=== PATIENT | female | born 1935 | race African-American/Black ===

== ENCOUNTER 2018-12-15 16:18 | Emergency (ER) | payer MEDICARE, MEDICAID ==
[2018-12-15] MEDS ORDERED: Acetaminophen 500 MG TAB ONE (16:56)
--- NOTE | 2018-12-15 16:58 | RAD ---
Exam: XR Knee Rt 4 View STANDARD HISTORY: Right knee pain COMPARISON: None FINDINGS: There is tricompartment osteophytosis. There is narrowing of the medial joint compartment with mild s ubchondral sclerosis present. No acute fracture, dislocation, or other acute osseous abnormality is identified. Vascular calcifications are seen in the region of the tibial peroneal vessels. IMPRESSION: Osteoarthritis right knee greatest involving the medial joint compartment.
[2018-12-15 17:15] LABS: #Basophils 0.1 thou/uL (0.0-0.2); #Eosinphils 1.2 thou/uL (0.0-0.7); #Lymphocytes 1.6 thou/uL (1.20-3.40); #Monocytes 0.5 thou/uL (0.11-0.59); #Neutrophils 4.2 thou/uL (1.40-6.50); %Basophils 1.2 % (0.0-1.0); %Eosinophils 15.6 % (0.0-10.0); %Lymphocytes 21.6 % (21.0-51.0); %Monocytes 6.5 % (0.0-10.0); %Neutrophils 55.1 % (42.0-75.0); Hemoglobin 11.6 g/dL (12.0-16.0); Mean Corpuscular HGB CONC 32.2 g/dL (32.0-36.0); Mean Corpuscular Hemoglobin 29.7 pg (27.0-31.0); Mean Corpuscular Volume 92.3 fL (78.0-98.0); Mean Platelet Volume 8.4 fL (7.4-10.4); Platelet Count 211 thou/uL (130-400); RBC Distribution Width 13.3 % (11.5-14.5); White Blood Cell (WBC) Count 7.6 thou/uL (4.8-10.8)
[2018-12-15 17:32] LABS: Anion Gap 10 mmol/L (10-20); BUN (Urea Nitrogen) 26 mg/dL (9.8-20.1); CRP (Inflammatory) Less than 0.50 mg/dL (= or < 0.5); Calc. Creatinine Clearance 0 mL/min (70-130); Calcium 9.5 mg/dL (7.8-10.44); Carbon Dioxide 29 mmol/L (23-31); Chloride 103 mmol/L (98-107); Estimated GFR-MDRD 31; Glucose 113 mg/dL (83-110); Potassium 4.2 mmol/L (3.5-5.1); Sodium 138 mmol/L (136-145); Uric Acid 9.8 mg/dL (2.6-6.0)
== END 2018-12-15 18:05 ==
LOC: ERS 16:18
DX: M17.11 Unilateral primary osteoarthritis, right knee (principal); Z86.711 Personal history of pulmonary embolism; I25.10 Atherosclerotic heart disease of native coronary artery without angina pectoris; E78.5 Hyperlipidemia, unspecified; I48.91 Unspecified atrial fibrillation; I50.9 Heart failure, unspecified; F03.90 Unspecified dementia, unspecified severity, without behavioral disturbance, psychotic disturbance, mood disturbance, and anxiety; Z79.899 Other long term (current) drug therapy; Z79.01 Long term (current) use of anticoagulants
CPT/HCPCS: 36415; 80048; 84550; 85025; 85652; 86140

== ENCOUNTER 2020-01-14 12:19 | Emergency (ER) | payer MEDICARE, MEDICAID ==
[2020-01-14 13:13] LABS: #Basophils 0.1 thou/uL (0.0-0.2); #Eosinphils 0.5 thou/uL (0.0-0.7); #Lymphocytes 1.7 thou/uL (1.20-3.40); #Monocytes 0.4 thou/uL (0.11-0.59); %Basophils 1.4 % (0.0-1.0); %Eosinophils 9.2 % (0.0-10.0); %Lymphocytes 29.5 % (21.0-51.0); %Monocytes 7.1 % (0.0-10.0); %Neutrophils 52.7 % (42.0-75.0); Hemoglobin 15.3 g/dL (12.0-16.0); Mean Corpuscular HGB CONC 31.9 g/dL (32.0-36.0); Mean Corpuscular Hemoglobin 29.8 pg (27.0-31.0); Mean Corpuscular Volume 93.2 fL (78.0-98.0); Mean Platelet Volume 8.6 fL (7.4-10.4); Platelet Count 209 thou/uL (130-400); RBC Distribution Width 15.5 % (11.5-14.5); Red Blood Cell (RBC) Count 5.13 mill/uL (4.20-5.40); White Blood Cell (WBC) Count 5.6 thou/uL (4.8-10.8)
[2020-01-14 13:15] LABS: ALT (SGPT) 10 U/L (8-55); AST (SGOT) 24 U/L (5-34); Alkaline Phosphatase 68 U/L (40-110); Anion Gap 14 mmol/L (10-20); BUN (Urea Nitrogen) 16 mg/dL (9.8-20.1); Bilirubin, Total 1.2 mg/dL (0.2-1.2); Calc. Creatinine Clearance 0 mL/min (70-130); Calcium 9.1 mg/dL (7.8-10.44); Carbon Dioxide 31 mmol/L (23-31); Chloride 95 mmol/L (98-107); Estimated GFR-MDRD 44; Globulin 3.3 g/dL (2.4-3.5); Glucose 112 mg/dL (83-110); Potassium 3.8 mmol/L (3.5-5.1); Protein, Total 6.3 g/dL (6.0-8.3); Sodium 136 mmol/L (136-145)
[2020-01-14 14:01] LABS: Bilirubin Negative (Negative); Blood, Urine Negative (Negative); Clarity Clear (Clear); Glucose, Urine (Dipstick) Normal (Negative); Ketone, Urine Negative (Negative); Leukocyte Negative Leu/uL (Negative); Nitrite Negative (Negative); Protein, Urine (Dipstick) Negative (Neg-Trace); Specific Gravity, Urine 1.009 (1.002-1.036); Urobilinogen Normal mg/dL (Less than 2)
--- NOTE | 2020-01-14 15:40 | CT ---
CT BRAIN WITHOUT CONTRAST: HISTORY:Altered mental status COMPARISON:None FINDINGS: There are foci of decreased attenuation in the periventricular white matter, consistent with chronic small vessel ischemic disease. There are old infarctions in the left and right parietal lobes, left larger than right. Cortical atrophy is present. No evidence of acute infarct, hemorrhage, midline shift or abnormal extra-axial fluid collections is seen. The ventricular size is appropriate and the basilar cisterns are patent. The bony calvarium is intact. The visualized paranasal sinuses and mastoid air cells are well aerated. IMPRESSION: No CT evidence of acute intracranial process.
[2020-01-14 15:53] LABS: CKMB 1.2 ng/mL (0-6.6)
[2020-01-14 20:26] LABS: CKMB 1.1 ng/mL (0-6.6)
--- NOTE | 2020-01-15 14:35 | EKG ---
Test Reason : Blood Pressure : / mmHG Vent. Rate : 072 BPM Atrial Rate : 066 BPM P-R Int : 000 ms QRS Dur : 118 ms QT Int : 482 ms P-R-T Axes : 000 -61 129 degrees QTc Int : 527 ms Atrial fibrillation with premature ventricular or aberrantly conducted complexes Left axis deviation Inferior infarct , age undetermined Anteroseptal infarct , age undetermined Prolonged QT Abnormal ECG Confirmed by SILVA VELAZQUEZ DO ([id number]), managing editor JASON MATA ([id number] on 01/15/2020 2:34:29 PM Referred By: Confirmed By:SILVA VELAZQUEZ DO
== END 2020-01-14 21:38 | disposition home or self-care (01) ==
LOC: EDBD 12:19 → ERS 12:19
DX: R53.1 Weakness (principal); R74.8 Abnormal levels of other serum enzymes; M19.90 Unspecified osteoarthritis, unspecified site; I25.10 Atherosclerotic heart disease of native coronary artery without angina pectoris; E78.5 Hyperlipidemia, unspecified; I73.9 Peripheral vascular disease, unspecified; I48.91 Unspecified atrial fibrillation; F03.90 Unspecified dementia, unspecified severity, without behavioral disturbance, psychotic disturbance, mood disturbance, and anxiety; I50.9 Heart failure, unspecified; Z79.01 Long term (current) use of anticoagulants; Z79.899 Other long term (current) drug therapy; Z86.718 Personal history of other venous thrombosis and embolism; Z79.82 Long term (current) use of aspirin
CPT/HCPCS: 36415; 51701; 70450; 80053; 81003; 82553; 84484; 85025; 93005

== ENCOUNTER 2020-04-10 16:05 | Emergency (ER) | payer MEDICARE, MEDICAID ==
--- NOTE | 2020-04-10 17:03 | RAD ---
RADIOGRAPH CHEST 1 VIEW: DATE: 04/10/2020 HISTORY: 84-year-old female with altered mental status. Concern for aspiration. FINDINGS: There is no airspace density, pulmonary edema, or pneumothorax. The lateral costophrenic angles are n ot effaced. IMPRESSION: 1) No acute pulmonary findings. 2) left atrial appendage closure device. 3) previous open-heart surgery.
[2020-04-10 17:51] LABS: #Lymphocytes 2.3 thou/uL (1.20-3.40); #Monocytes 0.9 thou/uL (0.11-0.59); #Neutrophils 4.2 thou/uL (1.40-6.50); %Eosinophils 11.4 % (0.0-10.0); %Lymphocytes 27.4 % (21.0-51.0); %Monocytes 10.7 % (0.0-10.0); %Neutrophils 50.5 % (42.0-75.0); Hemoglobin 14.2 g/dL (12.0-16.0); Mean Corpuscular HGB CONC 31.1 g/dL (32.0-36.0); Mean Corpuscular Hemoglobin 28.3 pg (27.0-31.0); Mean Corpuscular Volume 90.9 fL (78.0-98.0); Mean Platelet Volume 8.5 fL (7.4-10.4); Platelet Count 311 thou/uL (130-400); RBC Distribution Width 13.9 % (11.5-14.5); Red Blood Cell (RBC) Count 5.02 mill/uL (4.20-5.40); White Blood Cell (WBC) Count 8.4 thou/uL (4.8-10.8)
[2020-04-10 17:57] LABS: Bilirubin Negative (Negative); Blood, Urine Negative (Negative); Clarity Clear (Clear); Glucose, Urine (Dipstick) Normal (Negative); Ketone, Urine Negative (Negative); Leukocyte Negative Leu/uL (Negative); Nitrite Negative (Negative); Protein, Urine (Dipstick) Negative (Neg-Trace); Specific Gravity, Urine 1.013 (1.002-1.036); Urobilinogen Normal mg/dL (Less than 2); pH, Urine 5.5 (5.0-9.0)
[2020-04-10 17:57] LABS: ALT (SGPT) 15 U/L (8-55); AST (SGOT) 22 U/L (5-34); Albumin 3.1 g/dL (3.4-4.8); Alkaline Phosphatase 142 U/L (40-110); Anion Gap 15 mmol/L (10-20); BUN (Urea Nitrogen) 36 mg/dL (9.8-20.1); Bilirubin, Total 0.5 mg/dL (0.2-1.2); Calc. Creatinine Clearance 0 mL/min (70-130); Calcium 11.6 mg/dL (7.8-10.44); Carbon Dioxide 34 mmol/L (23-31); Chloride 96 mmol/L (98-107); Globulin 4.7 g/dL (2.4-3.5); Glucose 98 mg/dL (83-110); Potassium 4.2 mmol/L (3.5-5.1); Protein, Total 7.8 g/dL (6.0-8.3); Sodium 141 mmol/L (136-145)
[2020-04-10 18:19] LABS: CKMB 1.5 ng/mL (0-6.6)
--- NOTE | 2020-04-10 19:34 | CT ---
NONCONTRAST CT HEAD: 04/10/20 HISTORY: Altered mental status. History of epilepsy and prior CVA. COMPARISON: 01/18/20. FINDINGS: Prominent low attenuation area in the left parieto-occipital region is again seen likely related to r emote area of infarction. Minimal low attenuation area seen in the right parietal lobe also suggestiv e of remote ischemic change. There is no evidence of an acute cortical infarction, hemorrhage, mass e ffect, or midline shift. Mild cerebral volume loss is present. The ventricular system is normal in si ze, shape and position. The visualized paranasal sinuses and mastoid air cells are clear. There has been no interval change when compared to the prior exam. IMPRESSION: 1. No acute intracranial abnormality. 2. Stable chronic changes. POS: CONOR
== END 2020-04-10 19:41 | disposition home or self-care (01) ==
LOC: ERS 16:05
DX: R29.810 Facial weakness (principal); R41.82 Altered mental status, unspecified; I50.9 Heart failure, unspecified; I48.91 Unspecified atrial fibrillation; K21.9 Gastro-esophageal reflux disease without esophagitis; E78.5 Hyperlipidemia, unspecified; F32.9 Major depressive disorder, single episode, unspecified; Z79.899 Other long term (current) drug therapy
CPT/HCPCS: 51701; 70450; 71045; 80053; 81003; 82140; 82553; 84443; 84484; 85025; 87040; 87086; 93005; 96360

== ENCOUNTER 2020-04-26 00:38 | Inpatient (IN) | payer MEDICARE, MEDICAID ==
[2020-04-26 02:42] LABS: Bacteria/HPF None Seen HPF (None Seen); Bilirubin Negative (Negative); Blood, Urine Trace (Negative); Clarity Turbid (Clear); Glucose, Urine (Dipstick) Normal (Negative); Ketone, Urine Negative (Negative); Leukocyte 500 Leu/uL (Negative); Nitrite Negative (Negative); Protein, Urine (Dipstick) 10 mg/dL (Neg-Trace); Specific Gravity, Urine 1.013 (1.002-1.036); Urobilinogen Normal mg/dL (Less than 2); WBC/HPF Greater than 50 HPF (0-3)
[2020-04-26 02:55] LABS: Hemoglobin 16.4 g/dL (12.0-16.0); Mean Corpuscular HGB CONC 31.9 g/dL (32.0-36.0); Mean Corpuscular Hemoglobin 29.8 pg (27.0-31.0); Mean Corpuscular Volume 93.3 fL (78.0-98.0); Mean Platelet Volume 9.9 fL (7.4-10.4); Platelet Count 196 thou/uL (130-400); RBC Distribution Width 14.9 % (11.5-14.5); White Blood Cell (WBC) Count 8.7 thou/uL (4.8-10.8)
[2020-04-26] MEDS ORDERED: cefTRIAXone\\ROCEPHIN 1 GM VIAL ONE (02:59)
[2020-04-26 03:13] LABS: Band 1 % (5-11); Lymphocytes 28 % (21-51); MDiff Complete? YES; Monocytes 3 % (0-10); Neutrophil 68 % (42-75); Target Cells SLIGHT = 2-5 cells (100X) (0-1/hpf)
[2020-04-26 03:22] LABS: ALT (SGPT) 19 U/L (8-55); AST (SGOT) 53 U/L (5-34); Albumin 3.1 g/dL (3.4-4.8); Alkaline Phosphatase 90 U/L (40-110); Anion Gap 17 mmol/L (10-20); BUN (Urea Nitrogen) 87 mg/dL (9.8-20.1); Bilirubin, Total 0.7 mg/dL (0.2-1.2); Calc. Creatinine Clearance 0 mL/min (70-130); Calcium 11.8 mg/dL (7.8-10.44); Carbon Dioxide 36 mmol/L (23-31); Chloride 95 mmol/L (98-107); Glucose 112 mg/dL (83-110); Lipase 65 U/L (8-78); Potassium 3.9 mmol/L (3.5-5.1); Protein, Total 8.1 g/dL (6.0-8.3); Sodium 144 mmol/L (136-145)
[2020-04-26] MEDS ORDERED: Aspirin 300 MG Suppository ONE (04:25)
[2020-04-26 04:48] LABS: CKMB 7.3 ng/mL (0-6.6)
--- NOTE | 2020-04-26 07:31 | CT ---
PRELIMINARY REPORT/DIRECT RADIOLOGY/EMERGENCY AFTER HOURS PROCEDURE: EXAM: CT Head, without Contrast DATE/ TIME: 04/26/2020, 2:32 AM INDICATION: Altered mental status TECHNIQUE: Axial CT imaging was performed through the head without intravenous administration of con trast. Exam was performed using one or more of the following dose reduction techniques: automated exposure control, adjustment of the mA and/or kV according to patient size, or use of iterative recon struction technique. COMPARISON: CT Head 04/10/2020. FINDINGS: There is no intracranial hemorrhage, mass or mass effect. Encephalomalacia is again seen in the parieto-occipital regions, left more than right. The brain exhibits moderate atrophy with cortical thinning. There is no CT finding to suggest an acute territorial infarct. Calcified athero ma is seen within the cavernous portions of the internal carotid arteries compatible with intracranial atherosclerotic vascular disease (ASVD). Imaging begins at the superior orbital rim lev el. Mastoid air cells and visualized sinuses are clear. IMPRESSION: 1. CT imaging shows no acute intracranial abnormality. Findings are not statistically unchanged fro m reference exam 16 days ago. 2. Chronic postinfarct changes. 3. Atrophy with intracranial ASVD. ELECTRONICALLY SIGNED BY: Calderon Edge DO Apr 26, 2020 2:47:35 AM BROADCAST ENGINEER FINAL REPORT CT BRAIN WITHOUT CONTRAST: History: Altered mental status. Comparison: CT April 2020. Findings/impression: Concordant with the preliminary report. Transcribed Date/Time: 04/26/2020 7:52 AM
--- NOTE | 2020-04-26 07:34 | RAD ---
XR Chest 1 View Portable History: Chest pain Comparison: Radiograph April 10, 2020 Findings: Heart size is enlarged. Multiple midline sternotomy wires. Left atrial appendage clip. Advanced right glenohumeral degenerative changes. No acute osseous abnormality. Quadrant surgical clips. Impression: No acute intrathoracic abnormality.
[2020-04-26 10:33] LABS: CKMB 9.4 ng/mL (0-6.6)
--- NOTE | 2020-04-26 11:22 | PDOC.HHP ---
Hospitalist HPI - History of Present Illness altered mental status History of Present Illness: This is an 84 year old male with dementia, stroke, atrial fibrillation who presented with altered mental status. Per [facility], the patient is normally verbal with mild dysarthria and communicates when she is in the mood, however yesterday, she was not responding. The patient had a stroke 1-2 months ago; per nursing, she has generalized weakness, but no focal deficits that they are aware of. She was seen by speech therapy recently and was told to be on a pureed diet, but she does not like the textures and her daughter supposedly was bring her solid food. She did not eat yesterday and due to behavioral change, she was sent to the hospital. The patient denies headache, pain, shortness of breath. I am unable to get a significant history from her other than her saying that she wants water. ED Course: The patient presented to the ER with normal vital signs. CT brain showed no acute disease. Chest Xray was normal. UA showed turbid urine and 500 leukocyte esterase. She was admitted for further workup. Hospitalist ROS - Review of Systems Constitutional: denies: fever, chills Hospitalist History - Past Medical History Other Medical History: Dementia Depression Atrial fibrillation Stroke - Past Surgical History Past Surgical History: reports: CABG Other Surgical History: Right thrombectomy - Family History Family History: reports: Other (unable to obtain) - Social History Smoking Status: Never smoker Alcohol: reports: None - Exam General Appearance: NAD, awake alert Eye: PERRL, anicteric sclera ENT: normocephalic atraumatic, no oropharyngeal lesions Neck: no JVD Heart: RRR, no murmur, no gallops, no rubs Respiratory: CTAB, no wheezes, no rales, no ronchi Gastrointestinal: soft, non-tender, non-distended, normal bowel sounds Extremities: no cyanosis, no clubbing, no edema Skin: normal turgor, no lesions, no rashes Neurological: cranial nerve grossly intact Neurological - other findings: aphasia, left arm weakness. Musculoskeletal - other findings: 5/5 left hand to finger strap sewer. Diff assessing strength in other extremities Psychiatric: flat affect Psychiatric - other findings: oriented to month, not place, city Hospitalist Results - Labs Result Diagrams: 04/26/20 02:28 04/26/20 02:28 Lab results: WBC 8.7 thou/uL (4.8-10.8) 04/26/20 02:28 Hgb 16.4 g/dL (12.0-16.0) H 04/26/20 02:28 Hct 51.3 % (36.0-47.0) H 04/26/20 02:28 MCV 93.3 fL (78.0-98.0) 04/26/20 02:28 Plt Count 196 thou/uL (130-400) 04/26/20 02:28 Band Neuts % (Manual) 1 % (5-11) L 04/26/20 02:28 Sodium 144 mmol/L (136-145) 04/26/20 02:28 Potassium 3.9 mmol/L (3.5-5.1) 04/26/20 02:28 Chloride 95 mmol/L (98-107) L 04/26/20 02:28 Carbon Dioxide 36 mmol/L (23-31) H 04/26/20 02:28 BUN 87 mg/dL (9.8-20.1) H 04/26/20 02:28 Creatinine 2.71 mg/dL (0.6-1.1) H 04/26/20 02:28 Glucose 112 mg/dL (83-110) H 04/26/20 02:28 Calcium 11.8 mg/dL (7.8-10.44) H 04/26/20 02:28 Total Bilirubin 0.7 mg/dL (0.2-1.2) 04/26/20 02:28 AST 53 U/L (5-34) H 04/26/20 02:28 ALT 19 U/L (8-55) 04/26/20 02:28 Alkaline Phosphatase 90 U/L (40-110) 04/26/20 02:28 CK-MB (CK-2) 9.4 ng/mL (0-6.6) H* 04/26/20 09:16 Troponin I 0.898 ng/mL (< 0.028) H* 04/26/20 09:16 Serum Total Protein 8.1 g/dL (6.0-8.3) 04/26/20 02:28 Albumin 3.1 g/dL (3.4-4.8) L 04/26/20 02:28 Lipase 65 U/L (8-78) 04/26/20 02:28 Urine Ketones Negative mg/dL (Negative) 04/26/20 01:32 Urine Blood Trace (Negative) A 04/26/20 01:32 Urine Nitrite Negative (Negative) 04/26/20 01:32 Ur Leukocyte Esterase 500 Lucy/uL (Negative) A 04/26/20 01:32 Urine RBC 4-6 HPF (0-3) A 04/26/20 01:32 Urine WBC Greater than 50 HPF (0-3) A 04/26/20 01:32 Ur Squamous Epith Cells 4-6 HPF (0-3) A 04/26/20 01:32 Urine Bacteria None Seen HPF (None Seen) 04/26/20 01:32 Hospitalist H&P A/P - Plan Plan: ECHO: EF 50-55%. Severe LVH This is an 84 year old female with past medical history of dementia, stroke who presented to the hospital with altered mental status and decreased oral intake Acute encephalopathy - possibly from UTI versus dementia versus stroke - the patient does have some mild aphasia and left arm weakness. She was able to move her other extremities but does have some difficulty following commands. CT head was negative, will obtain MRI of the brain - continue aspirin and statin - order PT evaluation UTI - urine appears turbid. Blood and urine cultures are pending - continue IV ceftriaxone Hypercalcemia - calcium 11.8, will check vitamin D level in the morning. This could be from dehydration, continue fluids RADHA - creatinine up to 2.7 from baseline. Start IV fluids. Will repeat BMP in the morning Type II NSTEMI - troponin is trending up. ECHO unremarkable. Will repeat EKG History of atrial fibrillation - resume eliquis Dysphagia - speech evaluation. The patient was on a pureed diet at home, can resume
[2020-04-26] MEDS: Sodium Chloride 0.9% 1,000 ML IV SCH ×2 (11:55→21:40)
--- NOTE | 2020-04-26 12:00 | ULT ---
US Renal Bilateral STANDARD History: Worsening creatinine Comparison: Reference is made to an abdomen pelvis CT without contrast January 2020 Findings: Real-time grayscale and color evaluation of the kidneys was performed. Right kidney measures 7.1 x 3.5 x 3.6 cm and left kidney measures 10.5 x 4.3 x 3.6 cm. Poor corticome dullary differentiation. Superior pole left kidney is a 4.7 cm cyst. Interpolar right kidney is a 2.3 cm cyst. No renal mass o r hydronephrosis. Urinary bladder is unremarkable. Impression: No evidence for obstructive uropathy.
[2020-04-26 12:17] LABS: SARS-CoV-2 MS2 Positive; SARS-CoV-2 N Gene Negative; SARS-CoV-2 S Gene Negative; SARS-CoV-2 by NAA Not Detected (NotDetected); SARS-CoV-2 orf1ab Negative
[2020-04-26] MEDS ORDERED: Apixaban 2.5 MG TAB PO SCH ×2 (13:30→21:00)
[2020-04-26] MEDS ORDERED: Aspirin 81 mg Enteric Coated Tablet PO SCH (13:30)
[2020-04-26] MEDS: Atorvastatin Calcium 10 MG TAB PO SCH (20:27)
[2020-04-26] MEDS: Apixaban 2.5 MG TAB PO SCH (20:27)
[2020-04-27] MEDS: cefTRIAXone\\ROCEPHIN 1 GM in Sodium Chloride 0.9% 100 ML IVPB SCH (03:19)
[2020-04-27 04:50] LABS: ALT (SGPT) 16 U/L (8-55); AST (SGOT) 44 U/L (5-34); Albumin 3.1 g/dL (3.4-4.8); Alkaline Phosphatase 83 U/L (40-110); Anion Gap 19 mmol/L (10-20); BUN (Urea Nitrogen) 77 mg/dL (9.8-20.1); Bilirubin, Total 0.7 mg/dL (0.2-1.2); Calc. Creatinine Clearance 18 mL/min (70-130); Calcium 10.6 mg/dL (7.8-10.44); Carbon Dioxide 27 mmol/L (23-31); Chloride 103 mmol/L (98-107); Globulin 4.4 g/dL (2.4-3.5); Glucose 78 mg/dL (83-110); Potassium 3.3 mmol/L (3.5-5.1); Protein, Total 7.5 g/dL (6.0-8.3); Sodium 146 mmol/L (136-145)
[2020-04-27 06:19] LABS: Hemoglobin 15.1 g/dL (12.0-16.0); Mean Corpuscular HGB CONC 31.4 g/dL (32.0-36.0); Mean Corpuscular Hemoglobin 29.7 pg (27.0-31.0); Mean Corpuscular Volume 94.7 fL (78.0-98.0); Mean Platelet Volume 9.9 fL (7.4-10.4); Platelet Count 165 thou/uL (130-400); RBC Distribution Width 14.8 % (11.5-14.5); Red Blood Cell (RBC) Count 5.07 mill/uL (4.20-5.40); White Blood Cell (WBC) Count 8.6 thou/uL (4.8-10.8)
[2020-04-27] MEDS ORDERED: Aspirin 81 mg Enteric Coated Tablet PO SCH (09:00)
[2020-04-27] MEDS: Aspirin 81 mg Enteric Coated Tablet PO SCH (09:34)
[2020-04-27] MEDS: Sodium Chloride 0.45% 1,000 ML IV SCH ×2 (09:34→18:21)
[2020-04-27] MEDS: Sodium Chloride 0.9% 1,000 ML IV SCH (09:34)
[2020-04-27] MEDS: Apixaban 2.5 MG TAB PO SCH ×2 (09:34→21:24)
--- NOTE | 2020-04-27 15:05 | PDOC.HOSPP ---
- Subjective Encounter Date: 04/27/20 Encounter Time: 09:30 Subjective: F/u: encephalopathy The patient has difficulty communicating. She has expressive aphasia. MRI cannot be done yet because she has pacemaker clip and they are trying to verify whether MRI compatible or not - Objective Vital Signs & Weight: Vital Signs (12 hours) Temp Pulse Resp BP Pulse Ox 04/27/20 07:45 97.5 F L 73 16 134/84 100 04/27/20 04:00 97.1 F L 74 13 166/98 H 94 L Weight Weight 136 lb 6.4 oz I&O: 04/26/20 04/27/20 04/28/20 06:59 06:59 06:59 Intake Total 1400 Output Total 1 Balance 1399 Result Diagrams: 04/27/20 04:03 04/27/20 04:03 Hospitalist ROS - Review of Systems Constitutional: denies: fever, chills - Medication Medications: Active Medications Generic Name Dose Route Start Last Admin Trade Name Freq PRN Reason Stop Dose Admin Apixaban 2.5 mg 04/26/20 21:00 04/27/20 09:34 Apixaban 2.5 Mg Tab PO 2.5 mg BID IVELISSE Administration Aspirin 81 mg 04/27/20 09:00 04/27/20 09:34 Aspirin 81 Mg Enteric Coated Tablet PO 81 mg DAILY IVELISSE Administration Atorvastatin Calcium 10 mg 04/26/20 21:00 04/26/20 20:27 Atorvastatin Calcium 10 Mg Tab PO 10 mg HS IVELISSE Administration Ceftriaxone Sodium 1 gm/ 100 mls @ 200 mls/hr 04/27/20 03:00 04/27/20 03:19 Sodium Chloride IVPB 100 mls 0300 IVELISSE Administration Sodium Chloride 1,000 mls @ 100 mls/hr 04/27/20 08:45 04/27/20 09:34 1/2 Normal Saline IV 1,000 mls .Q10H IVELISSE Administration - Exam General Appearance: NAD, awake alert General - other findings: intermittently drowsy ENT: normocephalic atraumatic, no oropharyngeal lesions Neck: no JVD Heart: RRR, no murmur, no gallops, no rubs Respiratory: CTAB, no wheezes, no rales, no ronchi Gastrointestinal: soft, non-tender, non-distended, normal bowel sounds Extremities: no cyanosis, no clubbing, no edema Skin: normal turgor, no lesions, no rashes Neurological: normal sensation to touch Neurological - other findings: difficulty following commands. wiggles both toes and left hand Musculoskeletal - other findings: cannot do strength testing due to lethargy Psychiatric: lethargic Hosp A/P - Plan This is an 84 year old female with past medical history of dementia, stroke who presented to the hospital with altered mental status and decreased oral intake Acute encephalopathy - possibly from UTI versus dementia versus stroke - the patient does have some mild aphasia and left arm weakness. She was able to move her other extremities but does have some difficulty following commands. CT head was negative - MRI brain pending - continue aspirin and statin Hypernatremia - sodium is up to 146. Will switch fluids to 1/2 NS UTI - urine appears turbid. Blood and urine cultures are negative - continue IV ceftriaxone Hypercalcemia - calcium improved to 10, vitamin D 25, will monitor RADHA - creatinine improved to 2.23, continue fluids Type II NSTEMI - troponin is trending up. ECHO unremarkable. The patient denies chest pain History of atrial fibrillation - resume eliquis Dysphagia - speech evaluation. The patient was on a pureed diet at home, can resume
--- NOTE | 2020-04-27 17:16 | PDOC.EVN ---
Event Note - Event Note Event Note: Discussed with the daughter about plan of care. She states that patient is decl ining and no longer wants to even eat but normally used to want to eat solid food. She said three months ago they spoke to the patient about hospice and she declined but she has worsened since then In the past she has said she did not want a feeding tube When daughter was in the room, she says she is unsure if patient recognized her or not. She did ask the patient whether she wanted a feeding tube and she said "no" Daughter plans to discuss with other family members about consider hospice
[2020-04-27] MEDS: Atorvastatin Calcium 10 MG TAB PO SCH (21:24)
[2020-04-28] MEDS: cefTRIAXone\\ROCEPHIN 1 GM in Sodium Chloride 0.9% 100 ML IVPB SCH (03:06)
[2020-04-28] MEDS: Sodium Chloride 0.45% 1,000 ML IV SCH (03:08)
[2020-04-28 04:51] LABS: Hemoglobin 14.6 g/dL (12.0-16.0); Mean Corpuscular HGB CONC 31.4 g/dL (32.0-36.0); Mean Corpuscular Hemoglobin 30.6 pg (27.0-31.0); Mean Corpuscular Volume 97.4 fL (78.0-98.0); Mean Platelet Volume 9.6 fL (7.4-10.4); Platelet Count 149 thou/uL (130-400); RBC Distribution Width 15.1 % (11.5-14.5); Red Blood Cell (RBC) Count 4.77 mill/uL (4.20-5.40); White Blood Cell (WBC) Count 8.8 thou/uL (4.8-10.8)
[2020-04-28 06:23] LABS: Anion Gap 18 mmol/L (10-20); BUN (Urea Nitrogen) 60 mg/dL (9.8-20.1); Calc. Creatinine Clearance 25 mL/min (70-130); Calcium 9.5 mg/dL (7.8-10.44); Carbon Dioxide 24 mmol/L (23-31); Chloride 104 mmol/L (98-107); Potassium 3.5 mmol/L (3.5-5.1); Sodium 142 mmol/L (136-145)
[2020-04-28 06:28] LABS: Glucose 58 mg/dL (83-110)
[2020-04-28] MEDS ORDERED: Dextrose 50% Abboject 50 ML SYRINGE ONE (06:38)
[2020-04-28] MEDS: Dextrose 5 % And 0.9 % NaCl 1,000 ML IV SCH ×2 (06:45→16:45)
[2020-04-28] MEDS: Aspirin 81 mg Enteric Coated Tablet PO SCH (08:01)
[2020-04-28] MEDS: Apixaban 2.5 MG TAB PO SCH ×2 (08:01→20:28)
--- NOTE | 2020-04-28 09:17 | RAD ---
Portable frontal chest radiograph: 04/28/2020 COMPARISON: 04/26/2020 HISTORY: Hypoxia FINDINGS: Stable prominence of the cardiac silhouette. Stable midline sternotomy wires. No pneumothorax, lobar consolidation, or alveolar edema. Stable prominent degenerative change bilater al glenohumeral joints, right greater than left. IMPRESSION: Chronic findings as above. No focal consolidation or alveolar edema.
[2020-04-28 13:20] VITALS: BMI 22.8
--- NOTE | 2020-04-28 13:43 | PDOC.HOSPP ---
- Subjective Encounter Date: 04/28/20 Encounter Time: 11:00 Subjective: F/u: encephalopathy The patient is more alert today. She says she is hungry and she is willing to try to eat some food. She has no other complaints. She recalls her daughter visiting her yesterday . MRI brain was unable to be done since patient could not lay flat enough SHe also desaturated yesterday with movement to 70%. Unclear if patient is a mouth breather potentially She was hypoglycemic this morning to 58 and IV fluids switched to D5 1/2 ns - Objective Vital Signs & Weight: Vital Signs (12 hours) Temp Pulse Pulse Pulse Resp BP BP 04/28/20 12:20 97.9 F 64 16 04/28/20 10:04 66 75 144/72 H 127/56 L 04/28/20 07:56 97.5 F L 61 16 04/28/20 04:00 97.8 F 68 14 BP Pulse Ox 04/28/20 12:20 145/69 H 99 04/28/20 10:04 04/28/20 07:56 133/62 100 04/28/20 04:00 153/78 H 100 Weight Admit Weight 136 lb 6.4 oz Weight 145 lb 9.6 oz I&O: 04/27/20 04/28/20 04/29/20 06:59 06:59 06:59 Intake Total 1400 1260 Output Total 1 Balance 1399 1260 Result Diagrams: 04/28/20 04:27 04/28/20 05:48 Additional Labs: Accuchecks 04/28/20 07:04 POC Glucose 111 H Hospitalist ROS - Review of Systems Constitutional: denies: fever, chills - Medication Medications: Active Medications Generic Name Dose Route Start Last Admin Trade Name Freq PRN Reason Stop Dose Admin Apixaban 2.5 mg 04/26/20 21:00 04/28/20 08:01 Apixaban 2.5 Mg Tab PO 2.5 mg BID IVELISSE Administration Aspirin 81 mg 04/27/20 09:00 04/28/20 08:01 Aspirin 81 Mg Enteric Coated Tablet PO 81 mg DAILY IVELISSE Administration Atorvastatin Calcium 10 mg 04/26/20 21:00 04/27/20 21:24 Atorvastatin Calcium 10 Mg Tab PO 10 mg HS IVELISSE Administration Ceftriaxone Sodium 1 gm/ 100 mls @ 200 mls/hr 04/27/20 03:00 04/28/20 03:06 Sodium Chloride IVPB 100 mls 0300 IVELISSE Administration Dextrose/Sodium Chloride 1,000 mls @ 100 mls/hr 04/28/20 07:45 04/28/20 06:45 D5 0.9% Ns IV 1,000 mls .Q10H IVELISSE Administration Sodium Chloride 10 ml 04/28/20 09:00 04/28/20 08:06 Flush - Normal Saline 10 Ml Syringe IVF Not Given Q12HR IVELISSE - Exam General Appearance: NAD, awake alert Eye: PERRL, anicteric sclera ENT: normocephalic atraumatic, no oropharyngeal lesions Neck: no JVD Heart: RRR, no murmur, no gallops, no rubs Respiratory: CTAB, no wheezes, no rales, no ronchi, no tachypnea Gastrointestinal: soft, non-tender, non-distended, normal bowel sounds Extremities: no cyanosis, no clubbing, no edema Skin: normal turgor, no lesions, no rashes Neurological: cranial nerve grossly intact, normal sensation to touch, no weakness Musculoskeletal: normal tone, normal strength, no muscle wasting Psychiatric: A&O x 3 Hosp A/P - Plan This is an 84 year old female with past medical history of dementia, stroke who presented to the hospital with altered mental status and decreased oral intake Acute encephalopathy - possibly from UTI versus dementia versus stroke - improving, patient more understandable today. Had some weakness on the left side initially but is now moving all four extremities. CT head negative. - MRI brain not able to be done since patient couldn't lay flat enough - continue aspirin and statin - daughter to discuss with family members about hospice RADHA - creatinine improved to 1.7, continue IV fluids Hypoglycemia - blood sugar 58, stated on D5 05/10 NS. Will monitor . Patient did not want a feeding tube yesteday UTI - urine appears turbid. Blood and urine cultures are negative -will switch to oral cefdinir Type II NSTEMI - troponin is trending up. ECHO unremarkable. The patient denies chest pain History of atrial fibrillation - resume eliquis Dysphagia - speech evaluation. The patient was on a pureed diet at home, can resume Hypernatremia- resolved Hypercalcemia- resolved Dispo: pending resolution of RADHA, possibly send home with hospice if family agreeable
[2020-04-28] MEDS ORDERED: Nystatin 500,000 UNITS/5 ML UDCUP SSW SCH (15:00)
[2020-04-28 17:28] LABS: Critical Call Chem Troponin I RESULT DECREASING
[2020-04-28 17:49] LABS: CKMB 10.9 ng/mL (0-6.6)
[2020-04-28] MEDS: Nystatin 500,000 UNITS/5 ML UDCUP SSW SCH ×2 (18:39→20:28)
[2020-04-28] MEDS: Atorvastatin Calcium 10 MG TAB PO SCH (20:28)
[2020-04-28] MEDS: Cefdinir 300 MG CAP PO SCH (20:28)
[2020-04-29] MEDS: Dextrose 5 % And 0.9 % NaCl 1,000 ML IV SCH ×2 (02:40→13:42)
[2020-04-29] MEDS: Nystatin 500,000 UNITS/5 ML UDCUP SSW SCH ×2 (08:39→13:42)
[2020-04-29] MEDS: Aspirin 81 mg Enteric Coated Tablet PO SCH (08:39)
[2020-04-29] MEDS: Cefdinir 300 MG CAP PO SCH (08:39)
[2020-04-29] MEDS: Apixaban 2.5 MG TAB PO SCH (08:39)
--- NOTE | 2020-04-29 10:49 | CON ---
DATE OF CONSULTATION: REASON FOR CONSULTATION: Elevated troponin. HISTORY OF PRESENT ILLNESS: Ms. Glasgow is 84-year-old woman with underlying dementia. She is alert and oriented x0. She is very pleasant. She does not complain of chest pain, pressure, or associated symptoms. She has had decreased oxygenation with a fairly normal EKG. There was concern for underlying coronary artery disease. The history is limited from patient due to mental status. PAST MEDICAL HISTORY: Dementia, depression, atrial fibrillation, previous CVA. HOME MEDICATIONS: Include, 1. Rocephin. 2. Naproxen. 3. Multivitamin. 4. Remeron. 5. Promethazine. 6. Milk of magnesia. 7. Lasix. 8. Aricept. 9. Colace. 10. Cymbalta. 11. Atorvastatin. 12. Aspirin. 13. Eliquis. REVIEW OF SYSTEMS: Unobtainable. PHYSICAL EXAMINATION: VITAL SIGNS: Blood pressure 101/59, pulse 70, temperature afebrile. General: She is not oriented to time, person, or place. Head, Eyes, Ears, Nose and Throat: Sclerae without icterus. Mouth: Moist mucous membranes, normal palate. Neck: No jugular venous distention. Carotid upstroke is brisk. No bruits bilaterally. Lungs: Clear to auscultation. Heart: Irregular, regular. Abdomen: Soft, nontender, nondistended. Extremities: No edema. PERTINENT LABORATORY DATA: Hemoglobin 14.6, hematocrit 46.5, creatinine 1.7 down from 2.23 with a GFR of 25. CK-MB 9.4 up to 10.9, troponin 0.8, downtrending to 0.6. DIAGNOSTIC STUDIES: Echo Doppler shows LVEF 50% to 55%. Moderate to severe concentric LVH. IMPRESSION: 1. Hypoxia. 2. Elevated troponin. 3. Dementia. RECOMMENDATIONS: Unfortunately, Ms. Glasgow's quality of life appears to be chronically compromised. Her elevated troponin is likely multifactorial. She does have LVH in addition to renal insufficiency. She has no current symptoms suggesting angina. At this point, we will continue with conservative therapy. We would recommend continuing Eliquis in addition to low-dose aspirin. Blood pressure and heart rate appear stable. We will also continue Lipitor therapy. Otherwise, I have no further recommendations. Again, we will recommend conservative therapy. Please re-consult if needed. Job ID: [id number]
[2020-04-29 14:48] LABS: Anion Gap 15 mmol/L (10-20); BUN (Urea Nitrogen) 37 mg/dL (9.8-20.1); Calc. Creatinine Clearance 33 mL/min (70-130); Calcium 8.7 mg/dL (7.8-10.44); Carbon Dioxide 26 mmol/L (23-31); Chloride 106 mmol/L (98-107); Glucose 102 mg/dL (83-110); Sodium 144 mmol/L (136-145)
--- NOTE | 2020-04-29 15:51 | PDOC.DS.DS ---
Provider - Provider Date of Admission: 04/26/20 04:08 Date of Discharge: 04/29/20 Admitting Provider: Michelle Anderson MD Primary Care Physician: Doug Moreland MD Course - Hospital Course Hospital Course: Discharge Diagnoses: 1. Acute encephalopathy - possibly from UTI versus dementia 2. RADHA 3. Hypoglycemia 4. UTI 5. Type II NSTEMI 6. History of atrial fibrillation 7. Dysphagia (chronic) Brief HPI: This is an 84 year old male with past medical history of dementia, atrial fibrillation on eliquis who presented to the ER with altered mental status. She was normally verbal, but she was refusing to eat and less verbal. When she presented to the ER, her CT head and chest XRay was normal. UA showed turbid urine. Creatinine was 2.7. She was given IV ceftriaxone and admitted for further workup. Hospital Course: The patient was initially minimally verbal and had difficulty following commands especially on the left side. She did have an acute kidney injury with creatinine of 2.7 and was started on IV ceftriaxone on admission and IV fluids. Blood and urine cultures were normal. Her creatinine improved to 1.36 with fluids and renal ultrasound was normal. MRI of the brain was attempted because of dysarthria and some left sided weakness, but the patient was unable to lay flat for her MRI, so this was cancelled. Her mental status improved, and she was more coherent and moving all four extremities at the time of discharge. I discussed with her family members about considering hospice since her daughter stated that the patient's appetite has been declining lately, and it is possible that the patient's dementia is getting more advanced. Palliative care was consulted, and the family elected to not proceed with hospice. They also discussed a PEG tube and family and the patient did not want that either. The patient will be discharged to her intermediate on cefdinir for an additional three days to complete a seven day course of antibiotics. Acute hypoxic respiratory failure: the patient did desaturate intermittently while moving to 70% per nursing. Chest Xray did not show pneumonia or effusion. Cardiology was consulted and felt she could have CAD but conservative management best given her advanced age and dementia. She was weaned off oxygen at the time of discharge. Elevated troponin: the patient's troponin peaked at 0.8. CKMB was elevated, but the patient had no chest pain. ECHO was unremarkable. Cardiology was consulted and recommended conservative management. THe patient should continue her aspirin and statin Hypoglycemia: the patient had a blood sugar of 58 which improved to 102 with dextrose in her fluids. She was encouraged to eat adequately. Pertinent Studies: CT head 04/26: atrophy. Chest xray 04/26: no acute abnormality Renal US 04/26: no obstructive uropathy ECHO: EF 50-55%, severe LVH, mild MR, mild TR Resuscitation Status: 04/26/20 19:09 Resuscitation Status Routine Resuscitation Status: DNAR: NO Resuscitation Discussed with: intermediate - Labs Lab Results: 04/28/20 04:27 04/29/20 14:04 Abnormal Lab Results - Last 48 hrs 04/28/20 04:27: MCHC 31.4 L, RDW 15.1 H 04/28/20 05:48: BUN 60 H, Creatinine 1.70 H 04/28/20 16:44: CK-MB (CK-2) 10.9 H*, Troponin I 0.676 H* 04/29/20 14:04: Potassium 3.0 L, BUN 37 H, Creatinine 1.36 H Microbiology - Entire Visit 04/26/20 03:10 Venous blood - Left Hand Blood Culture - Preliminary NO GROWTH AT 48 HOURS 04/26/20 03:21 Venous blood - Left Hand Blood Culture - Preliminary NO GROWTH AT 48 HOURS 04/26/20 01:32 Urine Straight Catheter Urine Culture - Final NO GROWTH AT 48 HOURS - Physical Exam Vitals: Vital Signs (12 hours) Temp Pulse Pulse Pulse Resp BP BP 04/29/20 14:17 57 L 62 145/78 H 158/79 H 04/29/20 11:30 97.9 F 73 18 04/29/20 08:39 04/29/20 08:30 97.9 F 70 16 04/29/20 03:53 97.4 F L 50 L 16 BP Pulse Ox 04/29/20 14:17 04/29/20 11:30 118/57 L 100 04/29/20 08:39 100 04/29/20 08:30 101/59 L 93 L 04/29/20 03:53 130/60 100 Weight Admit Weight 136 lb 6.4 oz Weight 154 lb 14.4 oz Physical Exam: The patient was seen and examined on the day of discharge. General: patient is alert, awake, oriented times to person only CVS: RRR, no murmurs, rubs, gallops Lungs: CTAB Abdomen: +BS, soft, nontender, nondistended Extremities: no edema Problem - Discharge Plan Plan of Treatment: Follow up with your primary care doctor in one week. - Time spent with Patient (mins): 40 Plan - Discharge Medications Prescriptions: Cefdinir [Omnicef] 300 mg PO BID #9 cap Home Medications: Medication Instructions Recorded Confirmed Type Aspirin [Ecotrin Low Strength] 81 mg PO DAILY 01/18/20 04/26/20 History Atorvastatin Calcium 10 mg PO HS 01/18/20 04/26/20 History Cetirizine HCl 10 mg PO DAILY 01/18/20 04/26/20 History DULoxetine HCl [Cymbalta] 60 mg PO DAILY 01/18/20 04/26/20 History Apixaban [Eliquis] 2.5 mg PO BID tab 01/21/20 04/26/20 Rx Midodrine HCl [ProAmatine] 5 mg PO TID #30 tab 01/21/20 04/26/20 Rx Docusate [Colace] 100 mg PO DAILY 04/26/20 04/26/20 History Donepezil HCl [Aricept] 10 mg PO DAILY 04/26/20 04/26/20 History Multivitamin [One-Daily 1 each PO DAILY 04/26/20 04/26/20 History Multi-Vitamin] Cefdinir [Omnicef] 300 mg PO BID #9 cap 04/29/20 Rx Allergies: morphine Adverse Reaction (Verified 04/26/20 06:06) Nausea - Discharge Instructions Activity:: Activity as Tolerated Additional Dietary Instructions:: Pureed diet - Follow up Plan Referrals: [facility], Omer Nguyễn [Other] (Returning resident.) Doug Moreland MD [Primary Care Provider] - 7 Days (Please follow up with your primary health care provider in one week.) Disposition: HOME Quality - Care Measures CORE MEASURES:: N/A
[2020-04-29 16:26] VITALS: BP 120/59; TEMP 98
== END 2020-04-29 16:10 | disposition home or self-care (01) | DRG 682 ==
LOC: ERS 00:38 → 2NO 04:08
PROVIDERS: ADMIT Internal Medicine; ATTEND Internal Medicine
DX: N17.9 Acute kidney failure, unspecified (principal); I21.A1 Myocardial infarction type 2; J96.01 Acute respiratory failure with hypoxia; N39.0 Urinary tract infection, site not specified; G93.49 Other encephalopathy; E87.0 Hyperosmolality and hypernatremia; I48.91 Unspecified atrial fibrillation; I11.0 Hypertensive heart disease with heart failure; I50.9 Heart failure, unspecified; E16.2 Hypoglycemia, unspecified; Z51.5 Encounter for palliative care; K21.9 Gastro-esophageal reflux disease without esophagitis; I73.9 Peripheral vascular disease, unspecified; E78.5 Hyperlipidemia, unspecified; M19.90 Unspecified osteoarthritis, unspecified site; F32.9 Major depressive disorder, single episode, unspecified; E86.0 Dehydration; R77.8 Other specified abnormalities of plasma proteins; E83.52 Hypercalcemia; Z79.01 Long term (current) use of anticoagulants; Z86.718 Personal history of other venous thrombosis and embolism; Z86.73 Personal history of transient ischemic attack (TIA), and cerebral infarction without residual deficits; Z95.1 Presence of aortocoronary bypass graft; Z88.6 Allergy status to analgesic agent; Z79.82 Long term (current) use of aspirin; Z79.899 Other long term (current) drug therapy; Z79.2 Long term (current) use of antibiotics; R13.10 Dysphagia, unspecified; Z20.828 Contact with and (suspected) exposure to other viral communicable diseases
CPT/HCPCS: 36415; 36416; 70450; 71045; 76770; 80048; 80053; 81003; 81015; 82306; 82553; 83690; 84443; 84484; 85025; 85027; 87040; 87086; 87635; 93005; 93306; J0696; J3490; J7042; U0003

== ENCOUNTER 2020-05-07 19:05 | Inpatient (IN) | payer MEDICARE, MEDICAID ==
[~2020-05-07 19:05] MED LIST: Amiodarone 150 MG/3 ML VIAL ONE
[2020-05-07] MEDS ORDERED: Magnesium 2 GM/50 ML BAG (IN WATER) ONE (19:13)
[2020-05-07] MEDS ORDERED: levETIRAcetam 500 MG/100 ML PREMIX BAG ONE ×2 (19:23→19:24)
[2020-05-07] MEDS ORDERED: Lorazepam 2 MG/ML VIAL ONE (19:23)
[2020-05-07] MEDS ORDERED: Fosphenytoin Sodium 1,500 MG in Sodium Chloride 0.9% 50 ML IVPB ONE (19:45)
[2020-05-07 20:13] LABS: Hemoglobin 14.2 g/dL (12.0-16.0); Mean Corpuscular HGB CONC 30.8 g/dL (32.0-36.0); Mean Corpuscular Hemoglobin 28.7 pg (27.0-31.0); Mean Corpuscular Volume 93.4 fL (78.0-98.0); Mean Platelet Volume 9.2 fL (7.4-10.4); Platelet Count 177 thou/uL (130-400); RBC Distribution Width 15.1 % (11.5-14.5); Red Blood Cell (RBC) Count 4.93 mill/uL (4.20-5.40); White Blood Cell (WBC) Count 9.5 thou/uL (4.8-10.8)
--- NOTE | 2020-05-07 20:29 | CT ---
CT BRAIN 05/07/20 PROVIDED CLINICAL HISTORY: Seizure. FINDINGS: Comparison 04/16/20. The ventricular system appears normal in size and morphology. There is no evidence for intracranial h emorrhage or mass effect. Chronic ischemic changes are redemonstrated, without significant change wit h respect to prior. The extracranial soft tissues and osseous structures demonstrate no acute abnorma lity. IMPRESSION: No evidence for intracranial hemorrhage or mass effect. POS: JAX
[2020-05-07 20:30] LABS: Anisocytosis SLIGHT = 6-15 cells (100X) (0-5/hpf); Band 6 % (5-11); Lymphocytes 1 % (21-51); MDiff Complete? YES; Monocytes 4 % (0-10); Neutrophil 87 % (42-75); Nucleated RBC 1 % (0); Platelet Morphology Comment Appears Adequate; Polychromasia SLIGHT = 2-3 cells (100X) (0-2/hpf); Reactive Lymphocytes 1 % (0-10); Target Cells SLIGHT = 2-5 cells (100X) (0-1/hpf)
[2020-05-07 20:31] LABS: ALT (SGPT) 13 U/L (8-55); AST (SGOT) 46 U/L (5-34); Albumin 2.9 g/dL (3.4-4.8); Alkaline Phosphatase 99 U/L (40-110); Anion Gap 25 mmol/L (10-20); BUN (Urea Nitrogen) 21 mg/dL (9.8-20.1); Bilirubin, Total 0.9 mg/dL (0.2-1.2); Calc. Creatinine Clearance 0 mL/min (70-130); Calcium 8.7 mg/dL (7.8-10.44); Carbon Dioxide 16 mmol/L (23-31); Chloride 105 mmol/L (98-107); Globulin 3.9 g/dL (2.4-3.5); Glucose 92 mg/dL (83-110); Potassium 4.6 mmol/L (3.5-5.1); Protein, Total 6.8 g/dL (6.0-8.3); Sodium 141 mmol/L (136-145)
[2020-05-07] MEDS ORDERED: Cefepime 2 GM VIAL ONE (20:33)
[2020-05-07] MEDS ORDERED: Norepinephrine 8 MG/0.9% NS 250 ML ONE (20:33)
[2020-05-07 20:48] LABS: SARS-CoV-2 NAA Rapid Test Not Detected (NotDetected)
[2020-05-07 20:55] LABS: CKMB 4.3 ng/mL (0-6.6)
[2020-05-07 21:17] LABS: Bacteria/HPF 3+ HPF (None Seen); Bilirubin Negative (Negative); Blood, Urine Trace (Negative); Clarity Turbid (Clear); Glucose, Urine (Dipstick) Normal (Negative); Ketone, Urine Negative (Negative); Leukocyte 75 Leu/uL (Negative); Mucous/LPF Rare LPF (<2+); Nitrite Negative (Negative); Protein, Urine (Dipstick) 200 mg/dL (Neg-Trace); RBC/HPF 0-3 HPF (0-3); Renal Epithelial 21-50 HPF (None Seen); Specific Gravity, Urine 1.022 (1.002-1.036); Urobilinogen Normal mg/dL (Less than 2)
[2020-05-07] MEDS ORDERED: Vancomycin 1 GM/200 ML BAG ONE (21:36)
[2020-05-07] MEDS ORDERED: Acetaminophen 325 MG TAB PO PRN (22:27)
[2020-05-07] MEDS ORDERED: Acetaminophen 650 MG Suppository PR PRN (22:27)
--- NOTE | 2020-05-07 22:29 | RAD ---
FRONTAL RADIOGRAPH CHEST: 05/07/20 COMPARISON: 04/28/20 HISTORY: Seizure, fever. FINDINGS: There is marked enlargement of the cardiac silhouette. Midline sternotomy wires are noted. There is n o pneumothorax. IMPRESSION: Blunting of the costophrenic angles suggest bilateral small pleural effusions, right larger than left . Hazy density in the right base noted which may signify infiltrate or passive atelectasis. IMPRESSION: Enlarged cardiac silhouette with bilateral pleural effusions, right greater than left and nonspecific hazy density in the right base which may reflect edema, infectious pneumonitis or aspiration. POS: ANOOP
--- NOTE | 2020-05-07 22:33 | PDOC.HHP ---
Hospitalist HPI - History of Present Illness seizures History of Present Illness: Case of an 84y/o female shelter resident with a pmhx of cad, atrial fibrillation, pvd, hld, dementia, epilepsy and hx of cva with residual effects who comes to hospital due to seizures. apparently patient was on her usual state of health until today when she started with episode of seizures at the shelter. of EMS records showed she was seizing for 8mins before they were able to treat her with ativan 2mg, on route to hospital they had to give another dose due to recurrent seizure and 2 more here at the hospital at arrival pt was algo given keppra and phosphenytoin at the ED. she was evaluateed and at the ED and apart for status epileptycus she was diagnosed with possible sepsis for which hospitalist was called for further evaluation and management. Hospitalist ROS - Review of Systems ROS unobtainable: due to mental status Hospitalist History - Past Surgical History Past Surgical History: reports: CABG - Family History Other Family History: unable to asses due to mental status - Social History Alcohol: reports: None Drugs: reports: none Living Situation: Care Home Other Social History: unable to asses due to mental status - Exam General - other findings: sedated Eye: PERRL ENT: normocephalic atraumatic, no oropharyngeal lesions Neck: supple, symmetric, no JVD Heart: RRR, no murmur, no gallops Respiratory: CTAB, no wheezes, no rales Gastrointestinal: soft, non-tender, non-distended Extremities: no cyanosis, no clubbing, no edema Skin: normal turgor, no lesions Neurological: cranial nerve grossly intact Musculoskeletal: normal tone Psychiatric: somnolent Hospitalist Results - Labs Result Diagrams: 05/07/20 19:49 05/07/20 19:49 Lab results: WBC 9.5 thou/uL (4.8-10.8) 05/07/20 19:49 Hgb 14.2 g/dL (12.0-16.0) 05/07/20 19:49 Hct 46.1 % (36.0-47.0) 05/07/20 19:49 MCV 93.4 fL (78.0-98.0) 05/07/20 19:49 Plt Count 177 thou/uL (130-400) 05/07/20 19:49 Band Neuts % (Manual) 6 % (5-11) 05/07/20 19:49 Sodium 141 mmol/L (136-145) 05/07/20 19:49 Potassium 4.6 mmol/L (3.5-5.1) 05/07/20 19:49 Chloride 105 mmol/L (98-107) 05/07/20 19:49 Carbon Dioxide 16 mmol/L (23-31) L 05/07/20 19:49 BUN 21 mg/dL (9.8-20.1) H 05/07/20 19:49 Creatinine 1.67 mg/dL (0.6-1.1) H 05/07/20 19:49 Glucose 92 mg/dL (83-110) 05/07/20 19:49 Lactic Acid 8.8 mmol/L (0.5-2.2) H* 05/07/20 19:49 Calcium 8.7 mg/dL (7.8-10.44) 05/07/20 19:49 Total Bilirubin 0.9 mg/dL (0.2-1.2) 05/07/20 19:49 AST 46 U/L (5-34) H 05/07/20 19:49 ALT 13 U/L (8-55) 05/07/20 19:49 Alkaline Phosphatase 99 U/L (40-110) 05/07/20 19:49 CK-MB (CK-2) 4.3 ng/mL (0-6.6) 05/07/20 19:49 Troponin I 0.626 ng/mL (< 0.028) H* 05/07/20 19:49 B-Natriuretic Peptide 843.9 pg/mL (0-100) H 05/07/20 19:49 Serum Total Protein 6.8 g/dL (6.0-8.3) 05/07/20 19:49 Albumin 2.9 g/dL (3.4-4.8) L 05/07/20 19:49 Urine Ketones Negative mg/dL (Negative) 05/07/20 20:49 Urine Blood Trace (Negative) A 05/07/20 20:49 Urine Nitrite Negative (Negative) 05/07/20 20:49 Ur Leukocyte Esterase 75 Lucy/uL (Negative) A 05/07/20 20:49 Urine RBC 0-3 HPF (0-3) 05/07/20 20:49 Urine WBC 7-10 HPF (0-3) A 05/07/20 20:49 Ur Squamous Epith Cells 7-10 HPF (0-3) A 05/07/20 20:49 Urine Bacteria 3+ HPF (None Seen) A 05/07/20 20:49 Hospitalist H&P A/P - Problem (1) Seizures Code(s): R56.9 - UNSPECIFIED CONVULSIONS Status: Acute (2) SIRS (systemic inflammatory response syndrome) Code(s): R65.10 - SIRS OF NON-INFECTIOUS ORIGIN W/O ACUTE ORGAN DYSFUNCTION Status: Acute (3) UTI (urinary tract infection) Status: Acute Qualifiers: Urinary tract infection type: acute cystitis Hematuria presence: without hematuria Qualified Code(s): N30.00 - Acute cystitis without hematuria (4) Afib Code(s): I48.91 - UNSPECIFIED ATRIAL FIBRILLATION Status: Chronic Qualifiers: Atrial fibrillation type: paroxysmal Qualified Code(s): I48.0 - Paroxysmal atrial fibrillation (5) CAD (coronary artery disease) Code(s): I25.10 - ATHSCL HEART DISEASE OF [place] CORONARY ARTERY W/O ANG PCTRS Status: Chronic Qualifiers: Associated angina: without angina (6) Dementia Code(s): F03.90 - UNSPECIFIED DEMENTIA WITHOUT BEHAVIORAL DISTURBANCE Status: Chronic Qualifiers: Dementia type: unspecified type Dementia behavioral disturbance: without behavioral disturbance Qualified Code(s): F03.90 - Unspecified dementia without behavioral disturbance (7) Dyslipidemia Code(s): E78.5 - HYPERLIPIDEMIA, UNSPECIFIED Status: Chronic (8) H/O: CVA (cerebrovascular accident) Code(s): Z86.73 - PRSNL HX OF TIA (TIA), AND CEREB INFRC W/O RESID DEFICITS Status: Chronic - Plan Plan: Case of an 84y/o female with the stated pmhx who present with seizures and sirs status epilepctycus - multiple recurrent episodes - treated w ativen keppra and phosphenytoin - neurology consulted - will start keppra iv q 12 - head ct negative - eeg - ativan prn sirs - febrile + tachycardia + elevated LA + hypotension, source not clear. u/a does have some findings concerning for uti - currently on levophed - f/u LA - f/u cultures - will cover w cefepime + vanc - no leukocytosis - could be secondary to seizures - hypotension could be secondary to medications - covid negative atrial fibrillation in RVR - at arrival patient with pulse in the 160 - initially considered to be V tach - was given 150mg of amiodarone - currently at adequate ventricular response - continue elliquis hld - continue statin hx of cva - continue statin + asa for secondary prevention elevated troponin - likely demand ischemia - will trend
[2020-05-07 23:20] LABS: Lactic Acid 4.3 mmol/L (0.5-2.2)
[2020-05-07 23:31] LABS: Troponin I 0.968 ng/mL (< 0.028)
[2020-05-08] MEDS ORDERED: Norepinephrine 8 MG/0.9% NS 250 ML IVPB SCH (01:15)
[2020-05-08] MEDS: Sodium Chloride 0.9% 1,000 ML IV SCH ×2 (01:55→14:40)
[2020-05-08 03:02] LABS: Hemoglobin 13.3 g/dL (12.0-16.0); Mean Corpuscular HGB CONC 31.5 g/dL (32.0-36.0); Mean Corpuscular Hemoglobin 29.2 pg (27.0-31.0); Mean Corpuscular Volume 92.8 fL (78.0-98.0); Mean Platelet Volume 8.7 fL (7.4-10.4); Platelet Count 159 thou/uL (130-400); RBC Distribution Width 14.9 % (11.5-14.5); Red Blood Cell (RBC) Count 4.56 mill/uL (4.20-5.40); White Blood Cell (WBC) Count 12.4 thou/uL (4.8-10.8)
[2020-05-08 03:18] LABS: ALT (SGPT) 16 U/L (8-55); AST (SGOT) 55 U/L (5-34); Albumin 2.5 g/dL (3.4-4.8); Alkaline Phosphatase 79 U/L (40-110); Anion Gap 16 mmol/L (10-20); BUN (Urea Nitrogen) 23 mg/dL (9.8-20.1); Bilirubin, Total 0.8 mg/dL (0.2-1.2); Calc. Creatinine Clearance 0 mL/min (70-130); Calcium 8.3 mg/dL (7.8-10.44); Carbon Dioxide 23 mmol/L (23-31); Chloride 105 mmol/L (98-107); Globulin 3.5 g/dL (2.4-3.5); Glucose 141 mg/dL (83-110); Potassium 4.4 mmol/L (3.5-5.1); Sodium 140 mmol/L (136-145)
[2020-05-08 03:21] LABS: Band 3 % (5-11); Lymphocytes 7 % (21-51); MDiff Complete? YES; Monocytes 12 % (0-10); Neutrophil 78 % (42-75); Platelet Morphology Comment Appears Adequate; Target Cells SLIGHT = 2-5 cells (100X) (0-1/hpf); Troponin I 1.125 ng/mL (< 0.028)
[2020-05-08] MEDS ORDERED: Cefepime 2 GM VIAL ONE (06:30)
[2020-05-08] MEDS: Cefepime 2 GM in Sodium Chloride 0.9% 100 ML IVPB SCH ×3 (06:30→21:58)
[2020-05-08] MEDS ORDERED: Famotidine 20 MG TAB PO SCH (09:00)
[2020-05-08] MEDS ORDERED: MULTIVITAMIN PO SCH (09:00)
[2020-05-08] MEDS: Aspirin 81 mg Enteric Coated Tablet PO SCH (11:50)
[2020-05-08] MEDS: Donepezil HCl 10 MG TAB PO SCH (11:50)
[2020-05-08] MEDS: Docusate 100 MG CAP PO SCH (11:50)
[2020-05-08] MEDS: Midodrine HCl 5 MG TAB PO SCH ×3 (11:51→21:08)
[2020-05-08] MEDS: Multivit, Therapeutic 1 TAB PO SCH (11:51)
[2020-05-08] MEDS: DULoxetine 60 MG CAP PO SCH (11:51)
--- NOTE | 2020-05-08 12:30 | CON ---
NEUROLOGY CONSULTATION DATE OF CONSULTATION: 05/08/2020 REASON FOR CONSULTATION: Seizures. HISTORY OF PRESENT ILLNESS: Ms. Melida Glasgow is an 84-year-old female, who is a intermediate resident with medical history significant for coronary artery disease, atrial fibrillation, peripheral vascular disease, hyperlipidemia, dementia, epilepsy, and a history of CVA with residual neurological deficit, who presented to the emergency room with [id number] seizures. History is obtained from the review of the medical records as the patient is very somnolent and unable to provide the history and no family at bedside. Per records, she was in her usual health until yesterday when she had an episode of seizure at the intermediate. According to the EMS records, she was seizing for 8 minutes and they were able to treat her with Ativan 2 mg en route to the hospital and gave her another dose because of recurrent seizures. In the emergency room, she was given Keppra and fosphenytoin and admitted for further evaluation. She was also diagnosed with possible sepsis. REVIEW OF SYSTEMS: Unobtainable due to the patient's mental status. PAST SURGICAL HISTORY: CABG. FAMILY HISTORY: Unable to assess family history. SOCIAL HISTORY: According to intermediate records, there is no documented history of alcohol, or illegal drug abuse. ALLERGIES: Morphine PHYSICAL EXAMINATION: General - Somnolent Eye: PERRL ENT: normocephalic atraumatic, no oropharyngeal lesions Neck: supple, symmetric, no JVD Heart: RRR, no murmur, no gallops Respiratory: CTAB, no wheezes, no rales Gastrointestinal: soft, non-tender, non-distended Extremities: no cyanosis, no clubbing, no edema Skin: normal turgor, no lesions Neurological: Mental status, the patient is extremely somnolent. She does not follow commands. She does not maintain eye contact. Cranial nerves: Pupils are 4 mm, round and reactive to light. Face symmetric. Tongue midline. No roving eye movement seen. No gaze preference. Motor; muscle tone and bulk are normal. No involuntary movements of the upper and lower extremities seen. Sensory; minimal withdrawal to nailbed pressure bilaterally. Cerebellar; unable to assess secondary to the patient's mental status. Gait deferred due to patient's safety reasons and the patient's mental status. DATA REVIEWED: I reviewed the labs, which were significant for acute kidney injury with a BUN of 21 and creatinine of 1.67. Lab results: WBC 9.5 thou/uL (4.8-10.8) 05/07/20 19:49 Hgb 14.2 g/dL (12.0-16.0) 05/07/20 19:49 Hct 46.1 % (36.0-47.0) 05/07/20 19:49 MCV 93.4 fL (78.0-98.0) 05/07/20 19:49 Plt Count 177 thou/uL (130-400) 05/07/20 19:49 Band Neuts % (Manual) 6 % (5-11) 05/07/20 19:49 Sodium 141 mmol/L (136-145) 05/07/20 19:49 Potassium 4.6 mmol/L (3.5-5.1) 05/07/20 19:49 Chloride 105 mmol/L (98-107) 05/07/20 19:49 Carbon Dioxide 16 mmol/L (23-31) L 05/07/20 19:49 BUN 21 mg/dL (9.8-20.1) H 05/07/20 19:49 Creatinine 1.67 mg/dL (0.6-1.1) H 05/07/20 19:49 Glucose 92 mg/dL (83-110) 05/07/20 19:49 Lactic Acid 8.8 mmol/L (0.5-2.2) H* 05/07/20 19:49 Calcium 8.7 mg/dL (7.8-10.44) 05/07/20 19:49 Total Bilirubin 0.9 mg/dL (0.2-1.2) 05/07/20 19:49 AST 46 U/L (5-34) H 05/07/20 19:49 ALT 13 U/L (8-55) 05/07/20 19:49 Alkaline Phosphatase 99 U/L (40-110) 05/07/20 19:49 CK-MB (CK-2) 4.3 ng/mL (0-6.6) 05/07/20 19:49 Troponin I 0.626 ng/mL (< 0.028) H* 05/07/20 19:49 B-Natriuretic Peptide 843.9 pg/mL (0-100) H 05/07/20 19:49 Serum Total Protein 6.8 g/dL (6.0-8.3) 05/07/20 19:49 Albumin 2.9 g/dL (3.4-4.8) L 05/07/20 19:49 Urine Ketones Negative mg/dL (Negative) 05/07/20 20:49 Urine Blood Trace (Negative) A 05/07/20 20:49 Urine Nitrite Negative (Negative) 05/07/20 20:49 Ur Leukocyte Esterase 75 Lucy/uL (Negative) A 05/07/20 20:49 Urine RBC 0-3 HPF (0-3) 05/07/20 20:49 Urine WBC 7-10 HPF (0-3) A 05/07/20 20:49 Ur Squamous Epith Cells 7-10 HPF (0-3) A 05/07/20 20:49 Urine Bacteria 3+ HPF (None Seen) A 05/07/20 20:49 ASSESSMENT AND PLAN: (1) Seizures Code(s): R56.9 - UNSPECIFIED CONVULSIONS Status: Acute (2) SIRS (systemic inflammatory response syndrome) Code(s): R65.10 - SIRS OF NON-INFECTIOUS ORIGIN W/O ACUTE ORGAN DYSFUNCTION Status: Acute (3) UTI (urinary tract infection) Status: Acute Qualifiers: Urinary tract infection type: acute cystitis Hematuria presence: without hematuria Qualified Code(s): N30.00 - Acute cystitis without hematuria (4) Afib Code(s): I48.91 - UNSPECIFIED ATRIAL FIBRILLATION Status: Chronic Qualifiers: Atrial fibrillation type: paroxysmal Qualified Code(s): I48.0 - Paroxysmal atrial fibrillation (5) CAD (coronary artery disease) Code(s): I25.10 - ATHSCL HEART DISEASE OF [place] CORONARY ARTERY W/O ANG PCTRS Status: Chronic Qualifiers: Associated angina: without angina (6) Dementia Code(s): F03.90 - UNSPECIFIED DEMENTIA WITHOUT BEHAVIORAL DISTURBANCE Status: Chronic Qualifiers: Dementia type: unspecified type Dementia behavioral disturbance: without behavioral disturbance Qualified Code(s): F03.90 - Unspecified dementia without behavioral disturbance (7) Dyslipidemia Code(s): E78.5 - HYPERLIPIDEMIA, UNSPECIFIED Status: Chronic (8) H/O: CVA (cerebrovascular accident) Code(s): Z86.73 - PRSNL HX OF TIA (TIA), AND CEREB INFRC W/O RESID DEFICITS Status: Chronic Ms. Melida Glasgow is an 84-year-old female, who was consulted for status epilepticus. Neuro every 4 hours. Continue Keppra 1500 mg IV q.12 hours and fosphenytoin 100 mg IV q.8 hours for now. EEG to rule out ongoing seizure activity. Observe seizure precautions. Ativan 2 mg IV for seizure greater than [address] reviewed, which was negative. Continue home medications PT/OT/speech. Continue medical management per primary team. DVT prophylaxis. We will continue to follow. Further recommendations will depend on the results of the testing. Thank you for the consult. Job ID: [id number] [facility]
[2020-05-08] MEDS: levETIRAcetam in NS 1,000 MG in Premix Bag 1 BAG IVPB SCH ×2 (13:10→21:08)
--- NOTE | 2020-05-08 13:10 | PQF ---
CLINICAL DOCUMENTATION CLARIFICATION FORM: Dear Dr. MILLIE DANIELLE Date: 05-08-20 Please exercise your independent, professional judgment in responding to the clarification form. Clinical indicators are provided on the bottom of this form for your review. Please check appropriate box(es): [ x] Acute Renal Failure (ARF) / Acute Kidney Injury (RADHA) [ ] Insignificant Lab Values [ ] Other diagnosis [ ] Unable to determine In addition, please specify: Present on Admission (POA): [ x ] Yes [ ] No [ ] Unable to determine For continuity of documentation, please document condition throughout progress notes and discharge summary. Thank You. To be completed by CDI/Coding staff for physician review: CLINICAL INDICATORS - SIGNS / SYMPTOMS / LABS / RESULTS AND LOCATION IN MR: GFR: 05-07-20: 35 05-08-20: 38 CREATININE: 05-07-20: 1.67 05-08-20: 1.57 BUN: 05-07-20: 21 05-08-20: 23 RISK FACTORS / RESULTS AND LOCATION IN MR: ER NOTES: HOME MEDS: 05-07-20: LASIX PO, NAPROXEN, REMERON, ASA, ARICEPT, ELIQUIS TREATMENTS / RESULTS AND LOCATION IN MR: ER NOTES 05-07-20: NS IVF National [employer] Guidelines for CKD Staging Stage I Kidney damage with normal or increased GFR GFR > 90 Stage II Kidney damage with mildly decreased GFR GFR 60-89 Stage III Kidney damage with moderately decreased GFR GFR 30-59 Stage IV Kidney damage with severely decreased GFR GFR 16-29 Stage V Kidney failure GFR<15 ESRD End Stage Renal Disease On dialysis Acute Renal Failure/Acute Kidney Failure defined as: Increases in SCr by (>) 0.3 mg/dl within 48 hours OR- Increases in SCr by (>) 1.5 times baseline, known or presumed to have occurred within the prior 7 days OR- Urine volume < 0.5 ml/kg/hour for 6 hours (KDIGO supplement 2012 for RIFLE/MANUEL criteria) CDS Signature: Kisha Rodriguez Phone #: [phone] Date: 05-08-20 This is a permanent part of the Medical Record [facility]
--- NOTE | 2020-05-08 14:41 | PDOC.HOSPP ---
- Subjective Encounter Date: 05/08/20 Encounter Time: 13:00 Subjective: is obtunded, maintaining airway - Objective Vital Signs & Weight: Vital Signs (12 hours) Temp Pulse Resp BP Pulse Ox 05/08/20 11:45 96.4 F L 66 15 120/63 100 05/08/20 10:38 96.8 F L 64 12 130/63 100 Weight Weight 161 lb 4.8 oz Result Diagrams: 05/08/20 02:41 05/08/20 02:41 Hospitalist ROS - Medication Medications: Active Medications Generic Name Dose Route Start Last Admin Trade Name Freq PRN Reason Stop Dose Admin Aspirin 81 mg 05/08/20 09:00 05/08/20 11:50 Aspirin 81 Mg Enteric Coated Tablet PO Not Given DAILY IVELISSE Docusate Sodium 100 mg 05/08/20 09:00 05/08/20 11:50 Docusate 100 Mg Cap PO Not Given DAILY IVELISSE Donepezil HCl 10 mg 05/08/20 09:00 05/08/20 11:50 Donepezil Hcl 10 Mg Tab PO Not Given DAILY IVELISSE Duloxetine HCl 60 mg 05/08/20 09:00 05/08/20 11:51 Duloxetine 60 Mg Cap PO Not Given DAILY IVELISSE Sodium Chloride 1,000 mls @ 70 mls/hr 05/08/20 01:30 05/08/20 01:55 Normal Saline 0.9% IV 1,000 mls .[id number] IVELISSE Administration Cefepime HCl 2 gm/ Sodium 100 mls @ 200 mls/hr 05/08/20 06:00 05/08/20 06:30 Chloride IVPB 100 mls Q8HR IVELISSE Administration Levetiracetam 1,000 mg/ Device 100 mls @ 200 mls/hr 05/08/20 09:00 05/08/20 13:10 IVPB 100 mls BID IVELISSE Administration Midodrine 5 mg 05/08/20 09:00 05/08/20 11:51 Midodrine Hcl 5 Mg Tab PO Not Given TID IVELISSE Multivitamins 1 tab 05/08/20 09:00 05/08/20 11:51 Multivit, Therapeutic 1 Tab PO Not Given DAILY IVELISSE Sodium Chloride 10 ml 05/08/20 09:00 05/08/20 12:27 Flush - Normal Saline 10 Ml Syringe IVF Not Given Q12HR IVELISSE - Exam General Appearance: ill appearing Eye: PERRL, anicteric sclera ENT: no oropharyngeal lesions, dry oral mucosa Neck: supple, no JVD Heart: RRR, no murmur Respiratory: no wheezes, no rales, rhonchi Gastrointestinal: soft, non-tender, non-distended, normal bowel sounds Extremities: no cyanosis, no edema Neurological: cranial nerve grossly intact, no focal deficits Hosp A/P (1) SIRS (systemic inflammatory response syndrome) Code(s): R65.10 - SIRS OF NON-INFECTIOUS ORIGIN W/O ACUTE ORGAN DYSFUNCTION Status: Acute (2) Seizures Code(s): R56.9 - UNSPECIFIED CONVULSIONS Status: Acute (3) RADHA (acute kidney injury) Code(s): N17.9 - ACUTE KIDNEY FAILURE, UNSPECIFIED Status: Acute (4) Breakthrough seizure Code(s): G40.919 - EPILEPSY, UNSP, INTRACTABLE, WITHOUT STATUS EPILEPTICUS Status: Acute (5) Dehydration, moderate Code(s): E86.0 - DEHYDRATION Status: Acute (6) UTI (urinary tract infection) Status: Acute Qualifiers: Urinary tract infection type: acute cystitis Hematuria presence: without hematuria Qualified Code(s): N30.00 - Acute cystitis without hematuria (7) Afib Code(s): I48.91 - UNSPECIFIED ATRIAL FIBRILLATION Status: Chronic Qualifiers: Atrial fibrillation type: paroxysmal Qualified Code(s): I48.0 - Paroxysmal atrial fibrillation (8) CAD (coronary artery disease) Code(s): I25.10 - ATHSCL HEART DISEASE OF [place] CORONARY ARTERY W/O ANG PCTRS Status: Chronic Qualifiers: Associated angina: without angina (9) Dementia Code(s): F03.90 - UNSPECIFIED DEMENTIA WITHOUT BEHAVIORAL DISTURBANCE Status: Chronic Qualifiers: Dementia type: unspecified type Dementia behavioral disturbance: without behavioral disturbance Qualified Code(s): F03.90 - Unspecified dementia without behavioral disturbance (10) Dyslipidemia Code(s): E78.5 - HYPERLIPIDEMIA, UNSPECIFIED Status: Chronic (11) H/O: CVA (cerebrovascular accident) Code(s): Z86.73 - PRSNL HX OF TIA (TIA), AND CEREB INFRC W/O RESID DEFICITS Status: Chronic (12) PVD (peripheral vascular disease) Code(s): I73.9 - PERIPHERAL VASCULAR DISEASE, UNSPECIFIED Status: Chronic - Plan is on keppra and fosphenytoin, likely has breakthrough seizures prior h/o cva might be the focus for seizures?, await neuro opinion gentle iv hydration, cefepime, asp, lipitor, midodrine, cymbalta and aricept type 2 PA sec to seizure activity low alb of 2.5 prognosis guarded, I have given updates to son over phone 05/08
--- NOTE | 2020-05-08 15:39 | PDOC.EEG ---
Neurology EEG Report - Report Report: This EEG was performed using 24 channel [employer] video EEG machine with 24 disc electrodes. This was an extended 2 hours 5 minutes of inpatient video EEG recording. Digital analysis of the EEG was done for spike and seizure detection which revealed no abnormalities. Background: The posterior background rhythm was not observed. Low amplitude EEG with excessive beta activity intermixed with the background. Hyperventilation: Not performed. Photic Stimulation: No significant response. Sleep: No stage change is observed. EEG Diagnosis: Generalized low amplitude theta activity seen throughout the recording. Absence of Posterior background rhythm. Clinical Interpretation: This EEG is consistent with moderate to severe generalized nonspecific cerebral dysfunction.
--- NOTE | 2020-05-08 20:29 | CON ---
DATE OF CONSULTATION: 05/08/2020 INDICATION FOR CARDIOLOGY CONSULTATION: This is an 84-year-old female, status post seizure with elevated cardiac enzymes. HISTORY OF PRESENT ILLNESS: This very unfortunate 84-year-old female who resides in a usp due to severe dementia, has had a history in the past of coronary artery disease and bypass surgery. She also has chronic atrial fibrillation. She recently was in the hospital I believe back just a couple weeks ago and in fact Dr. Casey saw the patient on 29 of April. At that time, she also had elevated troponins. We were asked to see her again at this time for elevated troponins, but she had a repeat seizure while in the usp and was brought back to the emergency room. Most likely this is the etiology of the elevated cardiac enzymes. She is significantly demented and there is no indication that we need to proceed with any further evaluation at this time. REVIEW OF SYSTEMS: Her review of systems is unobtainable due to her severe dementia. She is actually nonverbal. SURGICAL HISTORY: In the past, she has coronary artery disease, has undergone bypass surgery. SOCIAL HISTORY: She resides in a usp. There is no history of alcohol or tobacco abuse. FAMILY HISTORY: Noncontributory. MEDICATIONS: Prior to admission included; 1. Naprosyn. 2. Multivitamins. 3. Remeron. 4. Promethazine. 5. Milk of mag. 6. Lasix. 7. Aricept. 8. Colace. 9. Cymbalta. 10. Atorvastatin. 11. Aspirin. 12. Eliquis. ALLERGIES: THERE ARE NO KNOWN DRUG ALLERGIES. PHYSICAL EXAMINATION: GENERAL: Reveals a very elderly demented female. She is in no acute distress at this time. VITAL SIGNS: Her blood pressure is 117/68, heart rate is in the 60s and shows an atrial fibrillation with well-controlled ventricular response. Respiratory rate is 16. She is afebrile. O2 saturations 100%. HEENT: Unremarkable. CHEST: Actually appears to be clear to auscultation. I did not hear any rales, rhonchi, or wheezing. She does have some decreased breath sounds at the bases, but does not take an inadequate inspiration for clear auscultation. CARDIOVASCULAR: Reveals an irregularly irregular rhythm. There were no gross murmurs noted. No heaves or thrills. ABDOMEN: Soft. I cannot elicit any tenderness or masses. EXTREMITIES: No clubbing, cyanosis, or edema. I cannot palpate pedal pulses. NEUROLOGICAL: As noted, the patient has severe dementia. She was nonverbal throughout the examination. LABORATORY DATA: Shows a WBC of 12.4, hemoglobin was 13.3, platelet count 159,000. Sodium was 140 with potassium of 4.4, bicarb was 23, BUN was 23, and creatinine is 1.57. Blood sugar was 141. Troponin-I was 0.62, has increased up to 1.25. Lactic acid was 8.8. IMAGING: Chest x-ray shows bilateral small pleural effusions with the right being greater than the left. There is also what appears to be some type of a right basilar density, which could be due to aspiration pneumonia or pneumonitis. Her echocardiogram on 04/26 indicated ejection fraction of 50% to 55% with left ventricular hypertrophy and significantly dilated left atrium with mild mitral and tricuspid valve regurgitation. Her EKG at this time continues to show atrial fibrillation. On initial arrival to the emergency room, she had rapid atrial fibrillation with left bundle branch block pattern. IMPRESSION: 1. 84-year-old demented patient with Alzheimer's who has a seizure disorder who presents with elevated cardiac enzymes. This is most likely related to her seizure disorder. No further cardiac workup would be indicated at this time. I would continue to monitor her and also would continue supportive care. She is a DNR patient at this time. 2. History of seizure disorder. This will be dealt with by the primary care service. 3. Acute renal insufficiency, this most likely will improve with some volume. 4. Present urinary tract infection. 5. Coronary artery disease, which appears to be stable at this time. 6. Dyslipidemia, she is on atorvastatin. Continue this medication if she is able to take p.o. medications. 7. Peripheral vascular disease. This appears to be stable at this time. At this time, there is no further cardiac workup that would be indicated and no interventions in this elderly demented patient who is actually a DNR. If there are any other issues, I will be more than happy to revisit with the patient, but at this time we will sign off. I would agree with the present management. Job ID: [id number]
[2020-05-08] MEDS ORDERED: Atorvastatin Calcium 40 MG TAB PO SCH (21:00)
[2020-05-08] MEDS: Atorvastatin Calcium 10 MG TAB PO SCH (21:08)
[2020-05-08 21:36] LABS: Vancomycin, Random 7.2 ug/mL (See Comment)
[2020-05-08] MEDS ORDERED: Vancomycin 1 GM in Premix Bag 1 BAG IVPB SCH ×2 (22:00→23:59)
[2020-05-09] MEDS: Cefepime 2 GM in Sodium Chloride 0.9% 100 ML IVPB SCH ×3 (05:32→23:12)
[2020-05-09] MEDS: Sodium Chloride 0.9% 1,000 ML IV SCH ×2 (05:33→20:36)
[2020-05-09] MEDS: levETIRAcetam in NS 1,000 MG in Premix Bag 1 BAG IVPB SCH (09:01)
[2020-05-09] MEDS: Aspirin 81 mg Enteric Coated Tablet PO SCH (09:05)
[2020-05-09] MEDS: Midodrine HCl 5 MG TAB PO SCH ×3 (09:05→20:26)
[2020-05-09] MEDS: Famotidine 20 MG TAB PO SCH (09:05)
[2020-05-09] MEDS: DULoxetine 60 MG CAP PO SCH (09:05)
[2020-05-09] MEDS: Donepezil HCl 10 MG TAB PO SCH (09:05)
[2020-05-09] MEDS: Docusate 100 MG CAP PO SCH (09:05)
[2020-05-09] MEDS: Multivit, Therapeutic 1 TAB PO SCH (09:05)
--- NOTE | 2020-05-09 10:31 | PDOC.EEG ---
Neurology EEG Report - Report Report: FOLLOW UP EEG This EEG was performed using 24 channel [employer] video EEG machine with 24 disc electrodes. This was an extended 2 hours 8 minutes of inpatient video EEG recording. Digital analysis of the EEG was done for spike and seizure detection which revealed no abnormalities. Background: The posterior background rhythm was not observed. Hyperventilation: Not performed. Photic Stimulation: No significant response. Sleep: No stage change is observed. EEG Diagnosis: Generalized theta activity seen throughout the recording. Absence of Posterior background rhythm. Clinical Interpretation: This EEG is consistent with moderate generalized nonspecific cerebral dysf unction. There is mild interval improvement since the prior study. No electrographic seizures captured during the recording.
--- NOTE | 2020-05-09 13:23 | PDOC.HOSPP ---
- Subjective Encounter Date: 05/09/20 Encounter Time: 09:30 Subjective: still lethargic, opens eyes to painfull stimuli not in distress moves left hand - Objective Vital Signs & Weight: Vital Signs (12 hours) Temp Pulse Resp BP Pulse Ox 05/09/20 11:59 97.5 F L 80 18 130/83 98 05/09/20 08:00 100 05/09/20 07:47 97.4 F L 74 18 151/82 H 100 05/09/20 04:00 97.9 F 91 18 128/59 L 99 Weight Admit Weight 161 lb 4.8 oz Weight 161 lb 4.8 oz I&O: 05/08/20 05/09/20 05/10/20 06:59 06:59 06:59 Intake Total 1150 Output Total 600 Balance 550 Result Diagrams: 05/08/20 02:41 05/08/20 02:41 Hospitalist ROS - Medication Medications: Active Medications Generic Name Dose Route Start Last Admin Trade Name Freq PRN Reason Stop Dose Admin Aspirin 81 mg 05/08/20 09:00 05/09/20 09:05 Aspirin 81 Mg Enteric Coated Tablet PO Not Given DAILY IVELISSE Atorvastatin Calcium 10 mg 05/08/20 21:00 05/08/20 21:08 Atorvastatin Calcium 10 Mg Tab PO Not Given HS IVELISSE Docusate Sodium 100 mg 05/08/20 09:00 05/09/20 09:05 Docusate 100 Mg Cap PO Not Given DAILY IVELISSE Donepezil HCl 10 mg 05/08/20 09:00 05/09/20 09:05 Donepezil Hcl 10 Mg Tab PO Not Given DAILY IVELISSE Duloxetine HCl 60 mg 05/08/20 09:00 05/09/20 09:05 Duloxetine 60 Mg Cap PO Not Given DAILY IVELISSE Famotidine 20 mg 05/09/20 09:00 05/09/20 09:05 Famotidine 20 Mg Tab PO Not Given DAILY IVELISSE Sodium Chloride 1,000 mls @ 70 mls/hr 05/08/20 01:30 05/09/20 05:33 Normal Saline 0.9% IV 1,000 mls .[id number] IVELISSE Administration Cefepime HCl 2 gm/ Sodium 100 mls @ 200 mls/hr 05/08/20 06:00 05/09/20 05:32 Chloride IVPB 100 mls Q8HR IVELISSE Administration Levetiracetam 1,000 mg/ Device 100 mls @ 200 mls/hr 05/08/20 09:00 05/09/20 09:01 IVPB 100 mls BID IVELISSE Administration Midodrine 5 mg 05/08/20 09:00 05/09/20 09:05 Midodrine Hcl 5 Mg Tab PO Not Given TID IVELISSE Multivitamins 1 tab 05/08/20 09:00 05/09/20 09:05 Multivit, Therapeutic 1 Tab PO Not Given DAILY IVELISSE Sodium Chloride 10 ml 05/08/20 09:00 05/09/20 09:06 Flush - Normal Saline 10 Ml Syringe IVF Not Given Q12HR IVELISSE - Exam General Appearance: ill appearing Eye: PERRL, anicteric sclera ENT: no oropharyngeal lesions, dry oral mucosa Neck: supple, no JVD Heart: RRR, no murmur Respiratory: no wheezes, no rales, no ronchi Gastrointestinal: soft, non-tender, non-distended, normal bowel sounds Extremities: no cyanosis, no edema Neurological: hemiplegia Hosp A/P (1) SIRS (systemic inflammatory response syndrome) Code(s): R65.10 - SIRS OF NON-INFECTIOUS ORIGIN W/O ACUTE ORGAN DYSFUNCTION Status: Acute (2) Seizures Code(s): R56.9 - UNSPECIFIED CONVULSIONS Status: Acute (3) RADHA (acute kidney injury) Code(s): N17.9 - ACUTE KIDNEY FAILURE, UNSPECIFIED Status: Acute (4) Breakthrough seizure Code(s): G40.919 - EPILEPSY, UNSP, INTRACTABLE, WITHOUT STATUS EPILEPTICUS Status: Acute (5) Dehydration, moderate Code(s): E86.0 - DEHYDRATION Status: Acute (6) UTI (urinary tract infection) Status: Acute Qualifiers: Urinary tract infection type: acute cystitis Hematuria presence: without hematuria Qualified Code(s): N30.00 - Acute cystitis without hematuria (7) Afib Code(s): I48.91 - UNSPECIFIED ATRIAL FIBRILLATION Status: Chronic Qualifiers: Atrial fibrillation type: paroxysmal Qualified Code(s): I48.0 - Paroxysmal atrial fibrillation (8) CAD (coronary artery disease) Code(s): I25.10 - ATHSCL HEART DISEASE OF [place] CORONARY ARTERY W/O ANG PCTRS Status: Chronic Qualifiers: Associated angina: without angina (9) Dementia Code(s): F03.90 - UNSPECIFIED DEMENTIA WITHOUT BEHAVIORAL DISTURBANCE Status: Chronic Qualifiers: Dementia type: unspecified type Dementia behavioral disturbance: without behavioral disturbance Qualified Code(s): F03.90 - Unspecified dementia without behavioral disturbance (10) Dyslipidemia Code(s): E78.5 - HYPERLIPIDEMIA, UNSPECIFIED Status: Chronic (11) H/O: CVA (cerebrovascular accident) Code(s): Z86.73 - PRSNL HX OF TIA (TIA), AND CEREB INFRC W/O RESID DEFICITS Status: Chronic (12) PVD (peripheral vascular disease) Code(s): I73.9 - PERIPHERAL VASCULAR DISEASE, UNSPECIFIED Status: Chronic - Plan is on keppra, likely had breakthrough seizures, eeg x2 did not show epileptiform focus, is following her. prior h/o cva might be the focus for seizures? gentle iv hydration, cefepime, asp, lipitor, midodrine, cymbalta and aricept type 2 [place] sec to seizure activity low alb of 2.5 blood and urine cultures were -ve, switch to oral antibiotics when she can tolerate po. prognosis guarded, I have given updates to son Mr.Sanders Esquivel over phone 05/08, 05/2020
--- NOTE | 2020-05-09 14:05 | PDOC.NEUPN ---
- Subjective Encounter Date: 05/09/20 Subjective: Mrs. Glasgow continues to remain somnolent and not following commands. EEG repeated today which was negative for ongoing seizure activity. No witnessed seizure was documented by the staff in the last 24 hours. - Objective Vital Signs & Weight: Vital Signs (12 hours) Temp Pulse Resp BP Pulse Ox 05/09/20 11:59 97.5 F L 80 18 130/83 98 05/09/20 08:00 100 05/09/20 07:47 97.4 F L 74 18 151/82 H 100 05/09/20 04:00 97.9 F 91 18 128/59 L 99 Weight Admit Weight 161 lb 4.8 oz Weight 161 lb 4.8 oz I&O: 05/08/20 05/09/20 05/10/20 06:59 06:59 06:59 Intake Total 1150 Output Total 600 Balance 550 Result Diagrams: 05/08/20 02:41 05/08/20 02:41 Radiology Reviewed by me: Yes EKG Reviewed by me: Yes ROS - Review of Systems ROS unobtainable: due to mental status - Medication Medications: Active Medications Generic Name Dose Route Start Last Admin Trade Name Freq PRN Reason Stop Dose Admin Aspirin 81 mg 05/08/20 09:00 05/09/20 09:05 Aspirin 81 Mg Enteric Coated Tablet PO Not Given DAILY IVELISSE Atorvastatin Calcium 10 mg 05/08/20 21:00 05/08/20 21:08 Atorvastatin Calcium 10 Mg Tab PO Not Given HS IVELISSE Docusate Sodium 100 mg 05/08/20 09:00 05/09/20 09:05 Docusate 100 Mg Cap PO Not Given DAILY IVELISSE Donepezil HCl 10 mg 05/08/20 09:00 05/09/20 09:05 Donepezil Hcl 10 Mg Tab PO Not Given DAILY IVELISSE Duloxetine HCl 60 mg 05/08/20 09:00 05/09/20 09:05 Duloxetine 60 Mg Cap PO Not Given DAILY IVELISSE Famotidine 20 mg 05/09/20 09:00 05/09/20 09:05 Famotidine 20 Mg Tab PO Not Given DAILY IVELISSE Sodium Chloride 1,000 mls @ 70 mls/hr 05/08/20 01:30 05/09/20 05:33 Normal Saline 0.9% IV 1,000 mls .[id number] IVELISSE Administration Cefepime HCl 2 gm/ Sodium 100 mls @ 200 mls/hr 05/08/20 06:00 05/09/20 05:32 Chloride IVPB 100 mls Q8HR IVELISSE Administration Midodrine 5 mg 05/08/20 09:00 05/09/20 09:05 Midodrine Hcl 5 Mg Tab PO Not Given TID IVELISSE Multivitamins 1 tab 05/08/20 09:00 05/09/20 09:05 Multivit, Therapeutic 1 Tab PO Not Given DAILY IVELISSE Sodium Chloride 10 ml 05/08/20 09:00 05/09/20 09:06 Flush - Normal Saline 10 Ml Syringe IVF Not Given Q12HR IVELISSE - Exam General Appearance: NAD Eye: PERRL ENT: normocephalic atraumatic Neck: supple Respiratory: CTAB Cardiovascular: RRR Gastrointestinal: soft Extremities: no cyanosis Skin: normal turgor Neurological: no new deficit Musculoskeletal: normal tone, no muscle wasting PSYCH: not oriented, somnolent, lethargic Results - Labs Result Diagrams: 05/08/20 02:41 05/08/20 02:41 Lab results: WBC 12.4 thou/uL (4.8-10.8) H 05/08/20 02:41 Hgb 13.3 g/dL (12.0-16.0) 05/08/20 02:41 Hct 42.4 % (36.0-47.0) 05/08/20 02:41 MCV 92.8 fL (78.0-98.0) 05/08/20 02:41 Plt Count 159 thou/uL (130-400) 05/08/20 02:41 Band Neuts % (Manual) 3 % (5-11) L 05/08/20 02:41 Sodium 140 mmol/L (136-145) 05/08/20 02:41 Potassium 4.4 mmol/L (3.5-5.1) 05/08/20 02:41 Chloride 105 mmol/L (98-107) 05/08/20 02:41 Carbon Dioxide 23 mmol/L (23-31) 05/08/20 02:41 BUN 23 mg/dL (9.8-20.1) H 05/08/20 02:41 Creatinine 1.57 mg/dL (0.6-1.1) H 05/08/20 02:41 Glucose 141 mg/dL (83-110) H 05/08/20 02:41 Lactic Acid 4.3 mmol/L (0.5-2.2) H* 05/07/20 22:46 Calcium 8.3 mg/dL (7.8-10.44) 05/08/20 02:41 Total Bilirubin 0.8 mg/dL (0.2-1.2) 05/08/20 02:41 AST 55 U/L (5-34) H 05/08/20 02:41 ALT 16 U/L (8-55) 05/08/20 02:41 Alkaline Phosphatase 79 U/L (40-110) 05/08/20 02:41 CK-MB (CK-2) 4.3 ng/mL (0-6.6) 05/07/20 19:49 Troponin I 1.125 ng/mL (< 0.028) H* 05/08/20 02:41 B-Natriuretic Peptide 843.9 pg/mL (0-100) H 05/07/20 19:49 Serum Total Protein 6.0 g/dL (6.0-8.3) 05/08/20 02:41 Albumin 2.5 g/dL (3.4-4.8) L 05/08/20 02:41 Urine Ketones Negative mg/dL (Negative) 05/07/20 20:49 Urine Blood Trace (Negative) A 05/07/20 20:49 Urine Nitrite Negative (Negative) 05/07/20 20:49 Ur Leukocyte Esterase 75 Lucy/uL (Negative) A 05/07/20 20:49 Urine RBC 0-3 HPF (0-3) 05/07/20 20:49 Urine WBC 7-10 HPF (0-3) A 05/07/20 20:49 Ur Squamous Epith Cells 7-10 HPF (0-3) A 05/07/20 20:49 Urine Bacteria 3+ HPF (None Seen) A 05/07/20 20:49 - Radiology Interpretation CT scan - head Additional Comment: Head CT negative for acute intracranial pathology PN A/P (1) Seizures Code(s): R56.9 - UNSPECIFIED CONVULSIONS Status: Acute (2) SIRS (systemic inflammatory response syndrome) Code(s): R65.10 - SIRS OF NON-INFECTIOUS ORIGIN W/O ACUTE ORGAN DYSFUNCTION St at[place]: Acute (3) RADHA (acute kidney injury) Code(s): N17.9 - ACUTE KIDNEY FAILURE, UNSPECIFIED Status: Acute (4) Breakthrough seizure Code(s): G40.919 - EPILEPSY, UNSP, INTRACTABLE, WITHOUT STATUS EPILEPTICUS Status: Acute (5) Dehydration, moderate Code(s): E86.0 - DEHYDRATION Status: Acute (6) UTI (urinary tract infection) Status: Acute Qualifiers: Urinary tract infection type: acute cystitis Hematuria presence: without hematuria Qualified Code(s): N30.00 - Acute cystitis without hematuria (7) Afib Code(s): I48.91 - UNSPECIFIED ATRIAL FIBRILLATION Status: Chronic Qualifiers: Atrial fibrillation type: paroxysmal Qualified Code(s): I48.0 - Paroxysmal atrial fibrillation (8) CAD (coronary artery disease) Code(s): I25.10 - ATHSCL HEART DISEASE OF [place] CORONARY ARTERY W/O ANG PCTRS Status: Chronic Qualifiers: Associated angina: without angina (9) Dementia Code(s): F03.90 - UNSPECIFIED DEMENTIA WITHOUT BEHAVIORAL DISTURBANCE Status: Chronic Qualifiers: Dementia type: unspecified type Dementia behavioral disturbance: without behavioral disturbance Qualified Code(s): F03.90 - Unspecified dementia without behavioral disturbance (10) Dyslipidemia Code(s): E78.5 - HYPERLIPIDEMIA, UNSPECIFIED Status: Chronic (11) H/O: CVA (cerebrovascular accident) Code(s): Z86.73 - PRSNL HX OF TIA (TIA), AND CEREB INFRC W/O RESID DEFICITS Status: Chronic (12) PVD (peripheral vascular disease) Code(s): I73.9 - PERIPHERAL VASCULAR DISEASE, UNSPECIFIED Status: Chronic - Plan Daily Plan: PT/OT, speech therapy, DVT proph w/SCDs Mrs. Glasgow is an 84-year-old female with history significant for dementia, coronary artery disease, prior CVA and seizure disorder presented with multiple seizure episodes consistent with status epilepticus. No further seizures reported by the staff but patient continues to remain somnolent and not following commands. EEG repeated today which was negative for seizure activity. Consider MRI of the brain to rule out acute intracranial process. Decrease Keppra to 750 mg IV 12 every 12 hours. Observe seizure precautions. Ativan 2 mg IV for seizure greater than 2 minutes. Neurochecks every 4 hours. Continue home medications. N.p.o. till cleared by speech. PT/OT Continue medical management per primary team. Plan discussed in detail with the nursing staff.
[2020-05-09 18:07] LABS: Anion Gap 19 mmol/L (10-20); BUN (Urea Nitrogen) 28 mg/dL (9.8-20.1); Calc. Creatinine Clearance 33 mL/min (70-130); Calcium 7.9 mg/dL (7.8-10.44); Carbon Dioxide 15 mmol/L (23-31); Chloride 109 mmol/L (98-107); Glucose 70 mg/dL (83-110); Potassium 5.3 mmol/L (3.5-5.1); Sodium 138 mmol/L (136-145)
[2020-05-09] MEDS: Atorvastatin Calcium 10 MG TAB PO SCH (20:26)
[2020-05-10] MEDS ORDERED: Magnesium 2 GM/50 ML 2 GM in Premix Bag 1 BAG IVPB SCH (00:30)
[2020-05-10 05:35] LABS: Anion Gap 14 mmol/L (10-20); BUN (Urea Nitrogen) 28 mg/dL (9.8-20.1); Calc. Creatinine Clearance 35 mL/min (70-130); Calcium 8.2 mg/dL (7.8-10.44); Carbon Dioxide 21 mmol/L (23-31); Chloride 111 mmol/L (98-107); Glucose 79 mg/dL (83-110); Potassium 4.1 mmol/L (3.5-5.1); Sodium 142 mmol/L (136-145)
[2020-05-10 05:52] LABS: Anisocytosis SLIGHT = 6-15 cells (100X) (0-5/hpf); Band 12 % (5-11); Crenated RBC SLIGHT = 1-5 cells (100X) (None Seen); Eosinophils 2 % (0-10); Hemoglobin 12.7 g/dL (12.0-16.0); Lymphocytes 10 % (21-51); MDiff Complete? YES; Mean Corpuscular HGB CONC 29.9 g/dL (32.0-36.0); Mean Corpuscular Hemoglobin 28.1 pg (27.0-31.0); Mean Corpuscular Volume 93.7 fL (78.0-98.0); Mean Platelet Volume 8.8 fL (7.4-10.4); Monocytes 6 % (0-10); Neutrophil 69 % (42-75); Platelet Count 163 thou/uL (130-400); RBC Distribution Width 15.1 % (11.5-14.5); Reactive Lymphocytes 1 % (0-10); Red Blood Cell (RBC) Count 4.53 mill/uL (4.20-5.40); White Blood Cell (WBC) Count 21.3 thou/uL (4.8-10.8)
[2020-05-10] MEDS: DULoxetine 60 MG CAP PO SCH (07:10)
[2020-05-10] MEDS: Docusate 100 MG CAP PO SCH (07:10)
[2020-05-10] MEDS: Donepezil HCl 10 MG TAB PO SCH (07:10)
[2020-05-10] MEDS: Aspirin 81 mg Enteric Coated Tablet PO SCH (07:10)
[2020-05-10] MEDS: Famotidine 20 MG TAB PO SCH (07:10)
[2020-05-10] MEDS: Midodrine HCl 5 MG TAB PO SCH ×3 (07:11→21:56)
[2020-05-10] MEDS: Multivit, Therapeutic 1 TAB PO SCH (07:11)
[2020-05-10] MEDS: Cefepime 2 GM in Sodium Chloride 0.9% 100 ML IVPB SCH (07:21)
[2020-05-10 10:39] LABS: Lactic Acid 1.4 mmol/L (0.5-2.2)
[2020-05-10 10:50] LABS: Troponin I 0.354 ng/mL (< 0.028)
[2020-05-10] MEDS: Sodium Chloride 0.9% 1,000 ML IV SCH (14:19)
[2020-05-10] MEDS: Piperacillin/Tazobactam 4.5 GM in Sodium Chloride 0.9% 100 ML IVPB SCH ×2 (14:20→22:15)
[2020-05-10] MEDS ORDERED: Lorazepam 2 MG/ML VIAL SLOW IVP SCH (14:30)
[2020-05-10] MEDS ORDERED: levETIRAcetam in NS 1,000 MG in Premix Bag 1 BAG IVPB SCH (14:30)
--- NOTE | 2020-05-10 15:06 | PDOC.EEG ---
Neurology EEG Report - Report Report: FOLLOW UP EEG This EEG was performed using 24 channel [employer] video EEG machine with 24 disc electrodes. This was an extended 2 hours 7 minutes of inpatient video EEG recording. Digital analysis of the EEG was done for spike and seizure detection which revealed no abnormalities. Background: The posterior background rhythm was not observed. Hyperventilation: Not performed. Photic Stimulation: No significant response. Sleep: No stage change is observed. Spells: None EEG Diagnosis: Generalized theta activity seen throughout the recording. Absence of Posterior background rhythm. Clinical Interpretation: This EEG is consistent with moderate generalized nonspecific cerebral dysfunction.
--- NOTE | 2020-05-10 15:10 | PDOC.NEUPN ---
- Subjective Encounter Date: 05/10/20 Subjective: Mrs. Glasgow continues to remain somnolent and not following commands. She had an episode of jerking during the rounds consistent with clinical seizure. - Objective Vital Signs & Weight: Vital Signs (12 hours) Temp Pulse Resp BP Pulse Ox 05/10/20 10:54 98.2 F 75 20 154/77 H 93 L 05/10/20 08:00 96.8 F L 73 18 151/105 H 94 L 05/10/20 04:00 97.7 F 77 12 170/85 H 99 Weight Admit Weight 161 lb 4.8 oz Weight 180 lb I&O: 05/09/20 05/10/20 05/11/20 06:59 06:59 06:59 Intake Total 1150 1698 Output Total 600 750 Balance 550 948 Result Diagrams: 05/10/20 04:30 05/10/20 04:30 Radiology Reviewed by me: Yes EKG Reviewed by me: Yes ROS - Review of Systems ROS unobtainable: due to mental status - Medication Medications: Active Medications Generic Name Dose Route Start Last Admin Trade Name Freq PRN Reason Stop Dose Admin Aspirin 81 mg 05/08/20 09:00 05/10/20 07:10 Aspirin 81 Mg Enteric Coated Tablet PO Not Given DAILY IVELISSE Atorvastatin Calcium 10 mg 05/08/20 21:00 05/09/20 20:26 Atorvastatin Calcium 10 Mg Tab PO Not Given HS IVELISSE Docusate Sodium 100 mg 05/08/20 09:00 05/10/20 07:10 Docusate 100 Mg Cap PO Not Given DAILY IVELISSE Donepezil HCl 10 mg 05/08/20 09:00 05/10/20 07:10 Donepezil Hcl 10 Mg Tab PO Not Given DAILY IVELISSE Duloxetine HCl 60 mg 05/08/20 09:00 05/10/20 07:10 Duloxetine 60 Mg Cap PO Not Given DAILY IVELISSE Famotidine 20 mg 05/09/20 09:00 05/10/20 07:10 Famotidine 20 Mg Tab PO Not Given DAILY IVELISSE Sodium Chloride 1,000 mls @ 70 mls/hr 05/08/20 01:30 05/10/20 14:19 Normal Saline 0.9% IV 1,000 mls .[id number] IVELISSE Administration Piperacillin Sod/Tazobactam 100 mls @ 200 mls/hr 05/10/20 14:00 05/10/20 14:20 Sod 4.5 gm/ Sodium Chloride IVPB 100 mls Q8HR IVELISSE Administration Lorazepam 2 mg 05/10/20 14:30 05/10/20 14:44 Lorazepam 2 Mg/Ml Vial SLOW IVP 05/10/20 17:00 2 mg NOW IVELISSE Administration Midodrine 5 mg 05/08/20 09:00 05/10/20 14:11 Midodrine Hcl 5 Mg Tab PO Not Given TID IVELISSE Multivitamins 1 tab 05/08/20 09:00 05/10/20 07:11 Multivit, Therapeutic 1 Tab PO Not Given DAILY IVELISSE Sodium Chloride 10 ml 05/08/20 09:00 05/10/20 07:11 Flush - Normal Saline 10 Ml Syringe IVF Not Given Q12HR IVELISSE - Exam General Appearance: ill appearing Eye: PERRL ENT: normocephalic atraumatic Neck: supple Respiratory: CTAB Cardiovascular: RRR Gastrointestinal: soft Extremities: no cyanosis Skin: normal turgor Neurological: no new deficit Musculoskeletal: normal tone, no muscle wasting PSYCH: somnolent, lethargic Results - Labs Result Diagrams: 05/10/20 04:30 05/10/20 04:30 Lab results: WBC 21.3 thou/uL (4.8-10.8) H 05/10/20 04:30 Hgb 12.7 g/dL (12.0-16.0) 05/10/20 04:30 Hct 42.4 % (36.0-47.0) 05/10/20 04:30 MCV 93.7 fL (78.0-98.0) 05/10/20 04:30 Plt Count 163 thou/uL (130-400) 05/10/20 04:30 Band Neuts % (Manual) 12 % (5-11) H 05/10/20 04:30 Sodium 142 mmol/L (136-145) 05/10/20 04:30 Potassium 4.1 mmol/L (3.5-5.1) 05/10/20 04:30 Chloride 111 mmol/L (98-107) H 05/10/20 04:30 Carbon Dioxide 21 mmol/L (23-31) L 05/10/20 04:30 BUN 28 mg/dL (9.8-20.1) H 05/10/20 04:30 Creatinine 1.34 mg/dL (0.6-1.1) H 05/10/20 04:30 Glucose 79 mg/dL (83-110) L 05/10/20 04:30 Lactic Acid 1.4 mmol/L (0.5-2.2) 05/10/20 10:09 Calcium 8.2 mg/dL (7.8-10.44) 05/10/20 04:30 Total Bilirubin 0.8 mg/dL (0.2-1.2) 05/08/20 02:41 AST 55 U/L (5-34) H 05/08/20 02:41 ALT 16 U/L (8-55) 05/08/20 02:41 Alkaline Phosphatase 79 U/L (40-110) 05/08/20 02:41 CK-MB (CK-2) 4.3 ng/mL (0-6.6) 05/07/20 19:49 Troponin I 0.354 ng/mL (< 0.028) H* 05/10/20 10:09 B-Natriuretic Peptide 843.9 pg/mL (0-100) H 05/07/20 19:49 Serum Total Protein 6.0 g/dL (6.0-8.3) 05/08/20 02:41 Albumin 2.5 g/dL (3.4-4.8) L 05/08/20 02:41 Urine Ketones Negative mg/dL (Negative) 05/07/20 20:49 Urine Blood Trace (Negative) A 05/07/20 20:49 Urine Nitrite Negative (Negative) 05/07/20 20:49 Ur Leukocyte Esterase 75 Lucy/uL (Negative) A 05/07/20 20:49 Urine RBC 0-3 HPF (0-3) 05/07/20 20:49 Urine WBC 7-10 HPF (0-3) A 05/07/20 20:49 Ur Squamous Epith Cells 7-10 HPF (0-3) A 05/07/20 20:49 Urine Bacteria 3+ HPF (None Seen) A 05/07/20 20:49 - Radiology Interpretation CT scan - head Additional Comment: Head CT did not reveal acute intracranial pathology. PN A/P (1) Seizures Code(s): R56.9 - UNSPECIFIED CONVULSIONS Status: Acute (2) SIRS (systemic inflammatory response syndrome) Code(s): R65.10 - SIRS OF NON-INFECTIOUS ORIGIN W/O ACUTE ORGAN DYSFUNCTION Status: Acute (3) RADHA (acute kidney injury) Code(s): N17.9 - ACUTE KIDNEY FAILURE, UNSPECIFIED Status: Acute (4) Breakthrough seizure Code(s): G40.919 - EPILEPSY, UNSP, INTRACTABLE, WITHOUT STATUS EPILEPTICUS Status: Acute (5) Dehydration, moderate Code(s): E86.0 - DEHYDRATION Status: Acute (6) UTI (urinary tract infection) Status: Acute Qualifiers: Urinary tract infection type: acute cystitis Hematuria presence: without hematuria Qualified Code(s): N30.00 - Acute cystitis without hematuria (7) Afib Code(s): I48.91 - UNSPECIFIED ATRIAL FIBRILLATION Status: Chronic Qualifiers: Atrial fibrillation type: paroxysmal Qualified Code(s): I48.0 - Paroxysmal atrial fibrillation (8) CAD (coronary artery disease) Code(s): I25.10 - ATHSCL HEART DISEASE OF [place] CORONARY ARTERY W/O ANG PCTRS Status: Chronic Qualifiers: Associated angina: without angina (9) Dementia Code(s): F03.90 - UNSPECIFIED DEMENTIA WITHOUT BEHAVIORAL DISTURBANCE Status: Chronic Qualifiers: Dementia type: unspecified type Dementia behavioral disturbance: without behavioral disturbance Qualified Code(s): F03.90 - Unspecified dementia without behavioral disturbance (10) Dyslipidemia Code(s): E78.5 - HYPERLIPIDEMIA, UNSPECIFIED Status: Chronic (11) H/O: CVA (cerebrovascular accident) Code(s): Z86.73 - PRSNL HX OF TIA (TIA), AND CEREB INFRC W/O RESID DEFICITS Status: Chronic (12) PVD (peripheral vascular disease) Code(s): I73.9 - PERIPHERAL VASCULAR DISEASE, UNSPECIFIED Status: Chronic - Plan Daily Plan: PT/OT, speech therapy, DVT proph w/SCDs Mrs. Glasgow is an 84-year-old female with history significant for dementia, coronary artery disease, prior CVA and seizure disorder presented with multiple seizure episodes consistent with status epilepticus. EEG repeated today which did not reveal any ongoing seizure activity. However, the patient had a clinical seizure during the rounds. Ativan 2 mg IV now in addition to Keppra 1 g IV load to abort the seizure activ ity.-Ordered Increase Keppra dose to 1 g IV every 12 hours.-Ordered Observe seizure precautions. Ativan 2 mg IV for seizure greater than 2 minutes. Neurochecks every 2 hours. Continue monitor respiratory status Continue home medications. N.p.o. till cleared by speech. PT/OT Continue medical management per primary team. Plan discussed in detail with the nursing staff.
--- NOTE | 2020-05-10 15:12 | EKG ---
Test Reason : Blood Pressure : / mmHG Vent. Rate : 148 BPM Atrial Rate : 075 BPM P-R Int : 000 ms QRS Dur : 126 ms QT Int : 324 ms P-R-T Axes : 000 -47 137 degrees QTc Int : 508 ms Atrial fibrillation with rapid ventricular response Left axis deviation Non-specific intra-ventricular conduction block Inferior infarct , age undetermined Anterolateral infarct , age undetermined Abnormal ECG Confirmed by WEN MELGOZA DO ([id number]), map editor NATAN YOUNGBLOOD ([id number]) on 05/10/2020 3:12:31 PM Referred By: Confirmed By:WEN MELGOZA DO
--- NOTE | 2020-05-10 15:41 | PDOC.HOSPP ---
- Subjective Encounter Date: 05/10/20 Encounter Time: 10:30 Subjective: Patient up in bed does not wake up. only wakes up on painful stimulation. - Objective Vital Signs & Weight: Vital Signs (12 hours) Temp Pulse Resp BP Pulse Ox 05/10/20 10:54 98.2 F 75 20 154/77 H 93 L 05/10/20 08:00 96.8 F L 73 18 151/105 H 94 L 05/10/20 04:00 97.7 F 77 12 170/85 H 99 Weight Admit Weight 161 lb 4.8 oz Weight 180 lb I&O: 05/09/20 05/10/20 05/11/20 06:59 06:59 06:59 Intake Total 1150 1698 Output Total 600 750 Balance 550 948 Result Diagrams: 05/10/20 04:30 05/10/20 04:30 Hospitalist ROS - Review of Systems Other: Unable to obtain - Medication Medications: Active Medications Generic Name Dose Route Start Last Admin Trade Name Freq PRN Reason Stop Dose Admin Aspirin 81 mg 05/08/20 09:00 05/10/20 07:10 Aspirin 81 Mg Enteric Coated Tablet PO Not Given DAILY IVELISSE Atorvastatin Calcium 10 mg 05/08/20 21:00 05/09/20 20:26 Atorvastatin Calcium 10 Mg Tab PO Not Given HS IVELISSE Docusate Sodium 100 mg 05/08/20 09:00 05/10/20 07:10 Docusate 100 Mg Cap PO Not Given DAILY IVELISSE Donepezil HCl 10 mg 05/08/20 09:00 05/10/20 07:10 Donepezil Hcl 10 Mg Tab PO Not Given DAILY IVELISSE Duloxetine HCl 60 mg 05/08/20 09:00 05/10/20 07:10 Duloxetine 60 Mg Cap PO Not Given DAILY IVELISSE Famotidine 20 mg 05/09/20 09:00 05/10/20 07:10 Famotidine 20 Mg Tab PO Not Given DAILY IVELISSE Sodium Chloride 1,000 mls @ 70 mls/hr 05/08/20 01:30 05/10/20 14:19 Normal Saline 0.9% IV 1,000 mls .[id number] IVELISSE Administration Piperacillin Sod/Tazobactam 100 mls @ 200 mls/hr 05/10/20 14:00 05/10/20 14:20 Sod 4.5 gm/ Sodium Chloride IVPB 100 mls Q8HR IVELISSE Administration Levetiracetam 1,000 mg/ Device 100 mls @ 200 mls/hr 05/10/20 14:30 05/10/20 15:18 IVPB 05/10/20 16:00 100 mls NOW IVELISSE Administration Lorazepam 2 mg 05/10/20 14:30 05/10/20 14:44 Lorazepam 2 Mg/Ml Vial SLOW IVP 05/10/20 17:00 2 mg NOW IVELISSE Administration Midodrine 5 mg 05/08/20 09:00 05/10/20 14:11 Midodrine Hcl 5 Mg Tab PO Not Given TID IVELISSE Multivitamins 1 tab 05/08/20 09:00 05/10/20 07:11 Multivit, Therapeutic 1 Tab PO Not Given DAILY IVELISSE Sodium Chloride 10 ml 05/08/20 09:00 05/10/20 07:11 Flush - Normal Saline 10 Ml Syringe IVF Not Given Q12HR IVELISSE - Exam Neck: negative: supple, symmetric, no JVD, no thyromegaly, no lymphadenopathy, no carotid bruit, JVD Heart: negative: RRR, no murmur, no gallops, no rubs, normal peripheral pulses, irregular, diminshed peripheral pulses, murmur present, II/IV, III/IV Respiratory: negative: CTAB, no wheezes, no rales, no ronchi, normal chest expansion, no tachypnea, normal percussion, rales, rhonchi, tachypneic, wheezes Neurological - other findings: Withdraws to pain Hosp A/P - Plan (1) SIRS (systemic inflammatory response syndrome) Code(s): R65.10 - SIRS OF NON-INFECTIOUS ORIGIN W/O ACUTE ORGAN DYSFUNCTION Status: Acute (2) Seizures Code(s): R56.9 - UNSPECIFIED CONVULSIONS Status: Acute (3) RADHA (acute kidney injury) Code(s): N17.9 - ACUTE KIDNEY FAILURE, UNSPECIFIED Status: Acute (4) Breakthrough seizure Code(s): G40.919 - EPILEPSY, UNSP, INTRACTABLE, WITHOUT STATUS EPILEPTICUS Status: Acute (5) Dehydration, moderate Code(s): E86.0 - DEHYDRATION Status: Acute (6) UTI (urinary tract infection) Status: Acute Qualifiers: Urinary tract infection type: acute cystitis Hematuria presence: without hematuria Qualified Code(s): N30.00 - Acute cystitis without hematuria (7) Afib Code(s): I48.91 - UNSPECIFIED ATRIAL FIBRILLATION Status: Chronic Qualifiers: Atrial fibrillation type: paroxysmal Qualified Code(s): I48.0 - Paroxysmal atrial fibrillation (8) CAD (coronary artery disease) Code(s): I25.10 - ATHSCL HEART DISEASE OF [place] CORONARY ARTERY W/O ANG PCTRS Status: Chronic Qualifiers: Associated angina: without angina (9) Dementia Code(s): F03.90 - UNSPECIFIED DEMENTIA WITHOUT BEHAVIORAL DISTURBANCE Status: Chronic Qualifiers: Dementia type: unspecified type Dementia behavioral disturbance: without behavioral disturbance Qualified Code(s): F03.90 - Unspecified dementia without behavioral disturbance (10) Dyslipidemia Code(s): E78.5 - HYPERLIPIDEMIA, UNSPECIFIED Status: Chronic (11) H/O: CVA (cerebrovascular accident) Code(s): Z86.73 - PRSNL HX OF TIA (TIA), AND CEREB INFRC W/O RESID DEFICITS Status: Chronic (12) PVD (peripheral vascular disease) Code(s): I73.9 - PERIPHERAL VASCULAR DISEASE, UNSPECIFIED Status: Chronic - Plan is on keppra, likely had breakthrough seizures, eeg x2 did not show epileptiform focus, is following her. prior h/o cva might be the focus for seizures? gentle iv hydration, cefepime, asp, lipitor, midodrine, cymbalta and aricept type 2 MT sec to seizure activity low alb of 2.5 blood and urine cultures were -ve, switch to oral antibiotics when she can tolerate po. prognosis guarded, I have given updates to son Mr.Sanders Esquivel over phone 05/08, 05/2020/ patient continues to have an elevated WBCs we will change antibiotics to Zosyn. Patient is getting an EEG again. She continues to be on Keppra IV. Not much change in her mentation. She does withdraw to painful stimulation.
--- NOTE | 2020-05-10 16:26 | CT ---
CT HEAD WITHOUT IV CONTRAST COMPARISON: 05/07/2020 HISTORY: Seizures. Repeat evaluation for CVA. TECHNIQUE: Axial CT imaging at 5 mm intervals from vertex through skull base without contrast FINDINGS: A low-density area is now seen in the left occipital lobe most compatible with acute to subacute infa rction. There is decreased attenuation in the periventricular white matter which is nonspecific but likely reflective of chronic small vessel ischemic changes similar to recent exam.. There is mild cerebral volume loss. The ventricular system is normal in size, shape, and position for the degree of sulcal atrophy. There is no evidence of a hemorrhage or midline shift. Skull base has a normal CT appearance. Visualized paranasal sinuses are clear. No other interval change. IMPRESSION: 1. Acute to subacute infarction left occipital lobe. 2. Chronic small vessel ischemic changes and cerebral volume loss.
[2020-05-10] MEDS: levETIRAcetam in NS 1,000 MG in Premix Bag 1 BAG IVPB SCH (21:55)
[2020-05-10] MEDS: Atorvastatin Calcium 10 MG TAB PO SCH (21:56)
[2020-05-11] MEDS: Sodium Chloride 0.9% 1,000 ML IV SCH ×3 (02:13→14:28)
[2020-05-11] MEDS: Piperacillin/Tazobactam 4.5 GM in Sodium Chloride 0.9% 100 ML IVPB SCH ×3 (05:45→22:17)
[2020-05-11] MEDS: DULoxetine 60 MG CAP PO SCH (08:29)
[2020-05-11] MEDS: Aspirin 81 mg Enteric Coated Tablet PO SCH (08:29)
[2020-05-11] MEDS: Famotidine 20 MG TAB PO SCH (08:29)
[2020-05-11] MEDS: Midodrine HCl 5 MG TAB PO SCH ×3 (08:29→22:17)
[2020-05-11] MEDS: Multivit, Therapeutic 1 TAB PO SCH (08:29)
[2020-05-11] MEDS: Donepezil HCl 10 MG TAB PO SCH (08:29)
[2020-05-11] MEDS: Docusate 100 MG CAP PO SCH (08:29)
[2020-05-11] MEDS: Saccharomyces boulardii 250 MG CAP PO SCH (08:30)
[2020-05-11] MEDS: levETIRAcetam in NS 1,000 MG in Premix Bag 1 BAG IVPB SCH ×2 (08:31→22:18)
[2020-05-11 10:14] LABS: Anion Gap 20 mmol/L (10-20); BUN (Urea Nitrogen) 26 mg/dL (9.8-20.1); Calc. Creatinine Clearance 38 mL/min (70-130); Calcium 8.1 mg/dL (7.8-10.44); Carbon Dioxide 16 mmol/L (23-31); Chloride 113 mmol/L (98-107); Glucose 71 mg/dL (83-110); Sodium 144 mmol/L (136-145)
[2020-05-11 10:18] LABS: Hemoglobin 13.8 g/dL (12.0-16.0); Mean Corpuscular HGB CONC 31.5 g/dL (32.0-36.0); Mean Corpuscular Hemoglobin 29.2 pg (27.0-31.0); Mean Corpuscular Volume 92.7 fL (78.0-98.0); Mean Platelet Volume 9.2 fL (7.4-10.4); Platelet Count 175 thou/uL (130-400); RBC Distribution Width 15.2 % (11.5-14.5); Red Blood Cell (RBC) Count 4.73 mill/uL (4.20-5.40); White Blood Cell (WBC) Count 11.3 thou/uL (4.8-10.8)
[2020-05-11 11:22] LABS: #Eosinphils 0.1 thou/uL (0.0-0.7); #Lymphocytes 1.9 thou/uL (1.20-3.40); #Monocytes 0.7 thou/uL (0.11-0.59); #Neutrophils 8.5 thou/uL (1.40-6.50); %Basophils 0.4 % (0.0-1.0); %Eosinophils 1.2 % (0.0-10.0); %Lymphocytes 16.9 % (21.0-51.0); %Monocytes 6.2 % (0.0-10.0); %Neutrophils 75.3 % (42.0-75.0); Anisocytosis SLIGHT = 6-15 cells (100X) (0-5/hpf); Band 5 % (5-11); Crenated RBC SLIGHT = 1-5 cells (100X) (None Seen); Lymphocytes 13 % (21-51); MDiff Complete? YES; Monocytes 8 % (0-10); Neutrophil 73 % (42-75); Platelet Morphology Comment Appears Adequate
--- NOTE | 2020-05-11 12:32 | RAD ---
Abdomen one view HISTORY: Feeding tube placement. FINDINGS: Visualized bowel gas pattern is nonspecific. Bilateral pleural fluid is apparent. Metallic tip of a Dobbhoff feeding catheter overlies the left upper quadrant, projecting over the gas tric fundus, just beyond the GE junction.
--- NOTE | 2020-05-11 14:06 | PDOC.NEUPN ---
- Subjective Encounter Date: 05/11/20 Subjective: No reported clinical seizures since the last 24 hours. Patient continues to remain lethargic and somnolent but she received an extra 1 g load of Keppra and 2 mg of Ativan yesterday after the clinical seizure during the rounds. Brief review of the EEG did not reveal any evidence of status epilepticus or ongoing seizure activity. Formal report to follow. Head CT yesterday showed acute to subacute left occipital infarct. - Objective Vital Signs & Weight: Vital Signs (12 hours) Temp Pulse Resp BP Pulse Ox 05/11/20 11:46 97.4 F L 76 17 153/87 H 99 05/11/20 07:51 98.1 F 88 20 143/72 H 100 05/11/20 07:40 100 05/11/20 04:28 100 05/11/20 04:00 97.4 F L 72 16 114/79 100 Weight Admit Weight 161 lb 4.8 oz Weight 180 lb 4.8 oz I&O: 05/10/20 05/11/20 05/12/20 06:59 06:59 06:59 Intake Total 1698 1150 Output Total 750 1000 Balance 948 150 Result Diagrams: 05/11/20 09:40 05/11/20 09:40 Radiology Reviewed by me: Yes EKG Reviewed by me: Yes ROS - Review of Systems ROS unobtainable: due to mental status - Medication Medications: Active Medications Generic Name Dose Route Start Last Admin Trade Name Freq PRN Reason Stop Dose Admin Aspirin 81 mg 05/08/20 09:00 05/11/20 08:29 Aspirin 81 Mg Enteric Coated Tablet PO Not Given DAILY IVELISSE Atorvastatin Calcium 10 mg 05/08/20 21:00 05/10/20 21:56 Atorvastatin Calcium 10 Mg Tab PO Not Given HS IVELISSE Docusate Sodium 100 mg 05/08/20 09:00 05/11/20 08:29 Docusate 100 Mg Cap PO Not Given DAILY IVELISSE Donepezil HCl 10 mg 05/08/20 09:00 05/11/20 08:29 Donepezil Hcl 10 Mg Tab PO Not Given DAILY IVELISSE Duloxetine HCl 60 mg 05/08/20 09:00 05/11/20 08:29 Duloxetine 60 Mg Cap PO Not Given DAILY IVELISSE Famotidine 20 mg 05/09/20 09:00 05/11/20 08:29 Famotidine 20 Mg Tab PO Not Given DAILY IVELISSE Sodium Chloride 1,000 mls @ 70 mls/hr 05/08/20 01:30 05/11/20 05:45 Normal Saline 0.9% IV 1,000 mls .[id number] IVELISSE Administration Piperacillin Sod/Tazobactam 100 mls @ 200 mls/hr 05/10/20 14:00 05/11/20 05:45 Sod 4.5 gm/ Sodium Chloride IVPB 100 mls Q8HR IVELISSE Administration Levetiracetam 1,000 mg/ Device 100 mls @ 200 mls/hr 05/10/20 21:00 05/11/20 08:31 IVPB 100 mls BID IVELISSE Administration Midodrine 5 mg 05/08/20 09:00 05/11/20 08:29 Midodrine Hcl 5 Mg Tab PO Not Given TID IVELISSE Multivitamins 1 tab 05/08/20 09:00 05/11/20 08:29 Multivit, Therapeutic 1 Tab PO Not Given DAILY IVELISSE Saccharomyces Boulardii 250 mg 05/11/20 09:00 05/11/20 08:30 Saccharomyces Boulardii 250 Mg Cap PO Not Given DAILY IVELISSE Sodium Chloride 10 ml 05/08/20 09:00 05/11/20 08:30 Flush - Normal Saline 10 Ml Syringe IVF Not Given Q12HR IVELISSE - Exam General Appearance: ill appearing Eye: PERRL ENT: normocephalic atraumatic Neck: supple Respiratory: CTAB Cardiovascular: RRR Gastrointestinal: soft Extremities: no cyanosis Skin: normal turgor Neurological: no new deficit Musculoskeletal: normal tone, no muscle wasting PSYCH: not oriented, somnolent, lethargic Results - Labs Result Diagrams: 05/11/20 09:40 05/11/20 09:40 Lab results: WBC 11.3 thou/uL (4.8-10.8) H 05/11/20 09:40 Hgb 13.8 g/dL (12.0-16.0) 05/11/20 09:40 Hct 43.9 % (36.0-47.0) 05/11/20 09:40 MCV 92.7 fL (78.0-98.0) 05/11/20 09:40 Plt Count 175 thou/uL (130-400) 05/11/20 09:40 Neutrophils % 75.3 % (42.0-75.0) H 05/11/20 09:40 Band Neuts % (Manual) 5 % (5-11) 05/11/20 09:40 Sodium 144 mmol/L (136-145) 05/11/20 09:40 Potassium 5.0 mmol/L (3.5-5.1) 05/11/20 09:40 Chloride 113 mmol/L (98-107) H 05/11/20 09:40 Carbon Dioxide 16 mmol/L (23-31) L 05/11/20 09:40 BUN 26 mg/dL (9.8-20.1) H 05/11/20 09:40 Creatinine 1.37 mg/dL (0.6-1.1) H 05/11/20 09:40 Glucose 71 mg/dL (83-110) L 05/11/20 09:40 Lactic Acid 1.4 mmol/L (0.5-2.2) 05/10/20 10:09 Calcium 8.1 mg/dL (7.8-10.44) 05/11/20 09:40 Total Bilirubin 0.8 mg/dL (0.2-1.2) 05/08/20 02:41 AST 55 U/L (5-34) H 05/08/20 02:41 ALT 16 U/L (8-55) 05/08/20 02:41 Alkaline Phosphatase 79 U/L (40-110) 05/08/20 02:41 CK-MB (CK-2) 4.3 ng/mL (0-6.6) 05/07/20 19:49 Troponin I 0.354 ng/mL (< 0.028) H* 05/10/20 10:09 B-Natriuretic Peptide 843.9 pg/mL (0-100) H 05/07/20 19:49 Serum Total Protein 6.0 g/dL (6.0-8.3) 05/08/20 02:41 Albumin 2.5 g/dL (3.4-4.8) L 05/08/20 02:41 Urine Ketones Negative mg/dL (Negative) 05/07/20 20:49 Urine Blood Trace (Negative) A 05/07/20 20:49 Urine Nitrite Negative (Negative) 05/07/20 20:49 Ur Leukocyte Esterase 75 Lcuy/uL (Negative) A 05/07/20 20:49 Urine RBC 0-3 HPF (0-3) 05/07/20 20:49 Urine WBC 7-10 HPF (0-3) A 05/07/20 20:49 Ur Squamous Epith Cells 7-10 HPF (0-3) A 05/07/20 20:49 Urine Bacteria 3+ HPF (None Seen) A 05/07/20 20:49 - Radiology Interpretation CT scan - head Additional Comment: Head CT consistent with acute infarction in the left occipital lobe PN A/P (1) CVA (cerebral vascular accident) Code(s): I63.9 - CEREBRAL INFARCTION, UNSPECIFIED Status: Acute (2) Seizures Code(s): R56.9 - UNSPECIFIED CONVULSIONS Status: Acute (3) SIRS (systemic inflammatory response syndrome) Code(s): R65.10 - SIRS OF NON-INFECTIOUS ORIGIN W/O ACUTE ORGAN DYSFUNCTION Status: Acute (4) RADHA (acute kidney injury) Code(s): N17.9 - ACUTE KIDNEY FAILURE, UNSPECIFIED Status: Acute (5) Breakthrough seizure Code(s): G40.919 - EPILEPSY, UNSP, INTRACTABLE, WITHOUT STATUS EPILEPTICUS Status: Acute (6) Dehydration, moderate Code(s): E86.0 - DEHYDRATION Status: Acute (7) UTI (urinary tract infection) Status: Acute Qualifiers: Urinary tract infection type: acute cystitis Hematuria presence: without hematuria Qualified Code(s): N30.00 - Acute cystitis without hematuria (8) Afib Code(s): I48.91 - UNSPECIFIED ATRIAL FIBRILLATION Status: Chronic Qualifiers: Atrial fibrillation type: paroxysmal Qualified Code(s): I48.0 - Paroxysmal atrial fibrillation (9) CAD (coronary artery disease) Code(s): I25.10 - ATHSCL HEART DISEASE OF [place] CORONARY ARTERY W/O ANG PCTRS Status: Chronic Qualifiers: Associated angina: without angina (10) Dementia Code(s): F03.90 - UNSPECIFIED DEMENTIA WITHOUT BEHAVIORAL DISTURBANCE Status: Chronic Qualifiers: Dementia type: unspecified type Dementia behavioral disturbance: without behavioral disturbance Qualified Code(s): F03.90 - Unspecified dementia without behavioral disturbance (11) Dyslipidemia Code(s): E78.5 - HYPERLIPIDEMIA, UNSPECIFIED Status: Chronic (12) H/O: CVA (cerebrovascular accident) Code(s): Z86.73 - PRSNL HX OF TIA (TIA), AND CEREB INFRC W/O RESID DEFICITS Status: Chronic (13) PVD (peripheral vascular disease) Code(s): I73.9 - PERIPHERAL VASCULAR DISEASE, UNSPECIFIED Status: Chronic - Plan Daily Plan: PT/OT, speech therapy, DVT proph w/SCDs Mrs. Glasgow is an 84-year-old female with history significant for dementia, coronary artery disease, prior CVA and seizure disorder presented with multiple seizure episodes consistent with status epilepticus. The patient continues to remain somnolent but no evidence of ongoing status epilepticus on multiple EEG recordings. She did have a clinical seizure yesterday during the rounds so was loaded with an extra dose of 1 g of Keppra IV and also given 2 mg of Ativan. She continues to remain somnolent and head CT was done yesterday which was also consistent with acute to subacute infarction in the left occipital lobe. Consider carotid Dopplers and 2D echocardiogram as part of stroke work-up. Continue telemetry-history of atrial fibrillation not on anticoagulation. Permissive control of blood pressure at this time Strict control of blood glucose Check hemoglobin A1c fasting lipid panel and TSH. Continue aspirin and high intensity statin for secondary stroke prevention. Continue Keppra 1 g IV every 12 hours for seizure prophylaxis. EEG done today to rule out ongoing seizure activity. We will follow up on the results. Observe seizure precautions. Ativan 2 mg IV for seizure greater than 2 minutes. Neurochecks every 2 hours. Continue monitor respiratory status Continue home medications. N.p.o. till cleared by speech. PT/OT Case management consult Continue medical management per primary team. Plan discussed in detail with the nursing staff and also with the primary attending Dr. Esparza.
--- NOTE | 2020-05-11 15:04 | PDOC.EEG ---
Neurology EEG Report - Report Report: FOLLOW UP EEG This EEG was performed using 24 channel [employer] video EEG machine with 24 disc electrodes. This was an extended 2 hours 6 minutes of inpatient video EEG recording. Digital analysis of the EEG was done for spike and seizure detection which revealed no abnormalities. Background: The posterior background rhythm was not observed. Hyperventilation: Not performed. Photic Stimulation: No significant response. Sleep: No stage change is observed. Spells: None EEG Diagnosis: Generalized theta activity at times sharply contoured seen throughout the recording. Absence of Posterior background rhythm. Clinical Interpretation: This EEG is consistent with moderate generalized nonspecific cerebral dysfunction.
--- NOTE | 2020-05-11 15:43 | PDOC.HOSPP ---
- Subjective Encounter Date: 05/11/20 Encounter Time: 09:30 Subjective: pt still drowsy - Objective Vital Signs & Weight: Vital Signs (12 hours) Temp Pulse Resp BP Pulse Ox 05/11/20 15:34 97.7 F 99 18 161/75 H 100 05/11/20 11:46 97.4 F L 76 17 153/87 H 99 05/11/20 07:51 98.1 F 88 20 143/72 H 100 05/11/20 07:40 100 05/11/20 04:28 100 05/11/20 04:00 97.4 F L 72 16 114/79 100 Weight Admit Weight 161 lb 4.8 oz Weight 180 lb 4.8 oz I&O: 05/10/20 05/11/20 05/12/20 06:59 06:59 06:59 Intake Total 1698 1150 Output Total 750 1000 Balance 948 150 Result Diagrams: 05/11/20 09:40 05/11/20 09:40 Hospitalist ROS - Review of Systems Other: unable to obtain - Medication Medications: Active Medications Generic Name Dose Route Start Last Admin Trade Name Freq PRN Reason Stop Dose Admin Aspirin 81 mg 05/08/20 09:00 05/11/20 08:29 Aspirin 81 Mg Enteric Coated Tablet PO Not Given DAILY IVELISSE Atorvastatin Calcium 10 mg 05/08/20 21:00 05/10/20 21:56 Atorvastatin Calcium 10 Mg Tab PO Not Given HS IVELISSE Docusate Sodium 100 mg 05/08/20 09:00 05/11/20 08:29 Docusate 100 Mg Cap PO Not Given DAILY IVELISSE Donepezil HCl 10 mg 05/08/20 09:00 05/11/20 08:29 Donepezil Hcl 10 Mg Tab PO Not Given DAILY IVELISSE Duloxetine HCl 60 mg 05/08/20 09:00 05/11/20 08:29 Duloxetine 60 Mg Cap PO Not Given DAILY IVELISSE Famotidine 20 mg 05/09/20 09:00 05/11/20 08:29 Famotidine 20 Mg Tab PO Not Given DAILY IVELISSE Sodium Chloride 1,000 mls @ 70 mls/hr 05/08/20 01:30 05/11/20 14:28 Normal Saline 0.9% IV Not Given .[id number] IVELISSE Piperacillin Sod/Tazobactam 100 mls @ 200 mls/hr 05/10/20 14:00 05/11/20 14:29 Sod 4.5 gm/ Sodium Chloride IVPB 100 mls Q8HR IVELISSE Administration Levetiracetam 1,000 mg/ Device 100 mls @ 200 mls/hr 05/10/20 21:00 05/11/20 08:31 IVPB 100 mls BID IVELISSE Administration Midodrine 5 mg 05/08/20 09:00 05/11/20 14:29 Midodrine Hcl 5 Mg Tab PO Not Given TID IVELISSE Multivitamins 1 tab 05/08/20 09:00 05/11/20 08:29 Multivit, Therapeutic 1 Tab PO Not Given DAILY IVELISSE Saccharomyces Boulardii 250 mg 05/11/20 09:00 05/11/20 08:30 Saccharomyces Boulardii 250 Mg Cap PO Not Given DAILY IVELISSE Sodium Chloride 10 ml 05/08/20 09:00 05/11/20 08:30 Flush - Normal Saline 10 Ml Syringe IVF Not Given Q12HR IVELISSE - Exam Neck: negative: supple, symmetric, no JVD, no thyromegaly, no lymphadenopathy, no carotid bruit, JVD Heart: negative: RRR, no murmur, no gallops, no rubs, normal peripheral pulses, irregular, diminshed peripheral pulses, murmur present, II/IV, III/IV Respiratory: negative: CTAB, no wheezes, no rales, no ronchi, normal chest expansion, no tachypnea, normal percussion, rales, rhonchi, tachypneic, wheezes Gastrointestinal: negative: soft, non-tender, non-distended, normal bowel sounds, no palpable masses, no hepatomegaly, no splenomegaly, no bruit, no guarding, no rigidity, tender to palpation, distended, diminished bowl sounds, voluntary guarding Neurological - other findings: minimal movement with painful stimulation Hosp A/P - Plan (1) SIRS (systemic inflammatory response syndrome) Code(s): R65.10 - SIRS OF NON-INFECTIOUS ORIGIN W/O ACUTE ORGAN DYSFUNCTION Status: Acute (2) Seizures Code(s): R56.9 - UNSPECIFIED CONVULSIONS Status: Acute (3) RADHA (acute kidney injury) Code(s): N17.9 - ACUTE KIDNEY FAILURE, UNSPECIFIED Status: Acute (4) Breakthrough seizure Code(s): G40.919 - EPILEPSY, UNSP, INTRACTABLE, WITHOUT STATUS EPILEPTICUS Status: Acute (5) Dehydration, moderate Code(s): E86.0 - DEHYDRATION Status: Acute (6) UTI (urinary tract infection) Status: Acute Qualifiers: Urinary tract infection type: acute cystitis Hematuria presence: without hematuria Qualified Code(s): N30.00 - Acute cystitis without hematuria (7) Afib Code(s): I48.91 - UNSPECIFIED ATRIAL FIBRILLATION Status: Chronic Qualifiers: Atrial fibrillation type: paroxysmal Qualified Code(s): I48.0 - Paroxysmal atrial fibrillation (8) CAD (coronary artery disease) Code(s): I25.10 - ATHSCL HEART DISEASE OF [place] CORONARY ARTERY W/O ANG PCTRS Status: Chronic Qualifiers: Associated angina: without angina (9) Dementia Code(s): F03.90 - UNSPECIFIED DEMENTIA WITHOUT BEHAVIORAL DISTURBANCE Status: Chronic Qualifiers: Dementia type: unspecified type Dementia behavioral disturbance: without behavioral disturbance Qualified Code(s): F03.90 - Unspecified dementia without behavioral disturbance (10) Dyslipidemia Code(s): E78.5 - HYPERLIPIDEMIA, UNSPECIFIED Status: Chronic (11) H/O: CVA (cerebrovascular accident) Code(s): Z86.73 - PRSNL HX OF TIA (TIA), AND CEREB INFRC W/O RESID DEFICITS Status: Chronic (12) PVD (peripheral vascular disease) Code(s): I73.9 - PERIPHERAL VASCULAR DISEASE, UNSPECIFIED Status: Chronic - Plan is on keppra, likely had breakthrough seizures, eeg x2 did not show epileptiform focus, is following her. prior h/o cva might be the focus for seizures? gentle iv hydration, cefepime, asp, lipitor, midodrine, cymbalta and aricept type 2 [place] sec to seizure activity low alb of 2.5 blood and urine cultures were -ve, switch to oral antibiotics when she can tolerate po. prognosis guarded, I have given updates to son Mr.Sanders Esquivel over phone 05/08, 05/2020/ patient continues to have an elevated WBCs we will change antibiotics to Zosyn. Patient is getting an EEG again. She continues to be on Keppra IV. Not much change in her mentation. She does withdraw to painful stimulation. 1/3 spoke with pt's son and updated him. I also spoke with neurology who stated that pt had a seizure while she was in the room evaluating the pt. Her keppra dose was increase and pt was given ativan. pt also has a stroke in her left occipital area. she is on asa/statin. will order echo and carotid Doppler.
[2020-05-11] MEDS: Atorvastatin Calcium 10 MG TAB PO SCH (22:18)
[2020-05-12] MEDS: Piperacillin/Tazobactam 4.5 GM in Sodium Chloride 0.9% 100 ML IVPB SCH ×2 (06:28→17:45)
[2020-05-12] MEDS: Sodium Chloride 0.9% 1,000 ML IV SCH ×2 (06:32→22:08)
[2020-05-12] MEDS ORDERED: levETIRAcetam 500 MG TAB PO SCH (10:00)
--- NOTE | 2020-05-12 10:09 | ULT ---
BILATERAL CAROTID DUPLEX ULTRASOUND: HISTORY: Stroke. FINDINGS: Real-time color Doppler evaluation of right and left carotid systems shows some moderate plaque forma tion bilaterally. On the right side, peak systolic velocities of the common carotid artery were 63 c m/s. internal carotid velocity is 75 cm/s. External carotid velocity is 44 cm/s. On the left side, peak systolic velocity of the common carotid were 56 cm/s. Internal carotid artery is not visualized. It appears to be occluded. There is dense plaque at the origin. The external c arotid velocities are 131 cm/s. Vertebral flow is antegrade bilaterally. IMPRESSION: 1. Fairly dense plaque formation, particularly on the left. 2. No hemodynamically significant stenosis of the right internal carotid artery. 3. 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 Further evaluation with CT an giography would be recommended. POS: OFF
[2020-05-12] MEDS ORDERED: levETIRAcetam 500 mg/5 ml Oral Solution PO SCH (10:15)
[2020-05-12] MEDS: Saccharomyces boulardii 250 MG CAP PO SCH (10:21)
[2020-05-12] MEDS: Aspirin 81 mg Enteric Coated Tablet PO SCH (10:22)
[2020-05-12] MEDS: DULoxetine 60 MG CAP PO SCH (10:22)
[2020-05-12] MEDS: Midodrine HCl 5 MG TAB PO SCH ×3 (10:22→22:09)
[2020-05-12] MEDS: Multivit, Therapeutic 1 TAB PO SCH (10:22)
[2020-05-12] MEDS: Famotidine 20 MG TAB PO SCH (10:22)
[2020-05-12] MEDS: Donepezil HCl 10 MG TAB PO SCH (10:22)
[2020-05-12] MEDS: Docusate 100 MG CAP PO SCH (10:22)
[2020-05-12] MEDS: levETIRAcetam in NS 1,000 MG in Premix Bag 1 BAG IVPB SCH (10:52)
--- NOTE | 2020-05-12 12:24 | PDOC.EEG ---
Neurology EEG Report - Report Report: his EEG was performed using 24 channel [employer] video EEG machine with 24 disc electrodes. This was an extended 2 hours 5 minutes of inpatient video EEG recording. Digital analysis of the EEG was done for spike and seizure detection which revealed no abnormalities. Background: The posterior background rhythm was not observed. Hyperventilation: Not performed. Photic Stimulation: No significant response. Sleep: No stage change is observed. Spells: None EEG Diagnosis: Generalized irregular theta activity at times sharply contoured seen throughout the recording. Absence of Posterior background rhythm. Clinical Interpretation: This EEG is consistent with moderate generalized nonspecific cerebral dysfunction.
--- NOTE | 2020-05-12 12:27 | PDOC.NEUPN ---
- Subjective Encounter Date: 05/12/20 Subjective: No acute events or reported seizures in the last 24 hours. - Objective Vital Signs & Weight: Vital Signs (12 hours) Temp Pulse Resp BP Pulse Ox 05/12/20 11:30 96.8 F L 71 16 125/98 H 98 05/12/20 09:11 98 05/12/20 07:46 97.2 F L 94 18 134/69 05/12/20 03:38 97.5 F L 87 18 113/76 95 Weight Admit Weight 161 lb 4.8 oz Weight 189 lb 11.2 oz I&O: 05/11/20 05/12/20 05/13/20 06:59 06:59 06:59 Intake Total 1150 840 Output Total 1000 800 Balance 150 40 Result Diagrams: 05/11/20 09:40 05/11/20 09:40 Radiology Reviewed by me: Yes EKG Reviewed by me: Yes ROS - Review of Systems ROS unobtainable: due to mental status - Medication Medications: Active Medications Generic Name Dose Route Start Last Admin Trade Name Cheri PRN Reason Stop Dose Admin Aspirin 81 mg 05/08/20 09:00 05/12/20 10:22 Aspirin 81 Mg Enteric Coated Tablet PO 81 mg DAILY IVELISSE Administration Atorvastatin Calcium 10 mg 05/08/20 21:00 05/11/20 22:18 Atorvastatin Calcium 10 Mg Tab PO 10 mg HS IVELISSE Administration Docusate Sodium 100 mg 05/08/20 09:00 05/12/20 10:22 Docusate 100 Mg Cap PO 100 mg DAILY IVELISSE Administration Donepezil HCl 10 mg 05/08/20 09:00 05/12/20 10:22 Donepezil Hcl 10 Mg Tab PO 10 mg DAILY IVELISSE Administration Duloxetine HCl 60 mg 05/08/20 09:00 05/12/20 10:22 Duloxetine 60 Mg Cap PO 60 mg DAILY IVELISSE Administration Famotidine 20 mg 05/09/20 09:00 05/12/20 10:22 Famotidine 20 Mg Tab PO 20 mg DAILY IVELISSE Administration Sodium Chloride 1,000 mls @ 70 mls/hr 05/08/20 01:30 05/12/20 06:32 Normal Saline 0.9% IV Not Given .[id number] IVELISSE Piperacillin Sod/Tazobactam 100 mls @ 200 mls/hr 05/10/20 14:00 05/12/20 06:28 Sod 4.5 gm/ Sodium Chloride IVPB 100 mls Q8HR IVELISSE Administration Midodrine 5 mg 05/08/20 09:00 05/12/20 10:22 Midodrine Hcl 5 Mg Tab PO 5 mg TID IVELISSE Administration Multivitamins 1 tab 05/08/20 09:00 05/12/20 10:22 Multivit, Therapeutic 1 Tab PO 1 tab DAILY IVELISSE Administration Saccharomyces Boulardii 250 mg 05/11/20 09:00 05/12/20 10:21 Saccharomyces Boulardii 250 Mg Cap PO 250 mg DAILY IVELISSE Administration Sodium Chloride 10 ml 05/08/20 09:00 05/12/20 10:22 Flush - Normal Saline 10 Ml Syringe IVF Not Given Q12HR IVELISSE - Exam General Appearance: ill appearing Eye: PERRL ENT: normocephalic atraumatic Neck: supple Respiratory: CTAB Cardiovascular: irregular Gastrointestinal: soft Extremities: no cyanosis Skin: normal turgor Neurological: no new deficit Musculoskeletal: normal tone, no muscle wasting PSYCH: somnolent Results - Labs Result Diagrams: 05/11/20 09:40 05/11/20 09:40 Lab results: WBC 11.3 thou/uL (4.8-10.8) H 05/11/20 09:40 Hgb 13.8 g/dL (12.0-16.0) 05/11/20 09:40 Hct 43.9 % (36.0-47.0) 05/11/20 09:40 MCV 92.7 fL (78.0-98.0) 05/11/20 09:40 Plt Count 175 thou/uL (130-400) 05/11/20 09:40 Neutrophils % 75.3 % (42.0-75.0) H 05/11/20 09:40 Band Neuts % (Manual) 5 % (5-11) 05/11/20 09:40 Sodium 144 mmol/L (136-145) 05/11/20 09:40 Potassium 5.0 mmol/L (3.5-5.1) 05/11/20 09:40 Chloride 113 mmol/L (98-107) H 05/11/20 09:40 Carbon Dioxide 16 mmol/L (23-31) L 05/11/20 09:40 BUN 26 mg/dL (9.8-20.1) H 05/11/20 09:40 Creatinine 1.37 mg/dL (0.6-1.1) H 05/11/20 09:40 Glucose 71 mg/dL (83-110) L 05/11/20 09:40 Lactic Acid 1.4 mmol/L (0.5-2.2) 05/10/20 10:09 Calcium 8.1 mg/dL (7.8-10.44) 05/11/20 09:40 Total Bilirubin 0.8 mg/dL (0.2-1.2) 05/08/20 02:41 AST 55 U/L (5-34) H 05/08/20 02:41 ALT 16 U/L (8-55) 05/08/20 02:41 Alkaline Phosphatase 79 U/L (40-110) 05/08/20 02:41 CK-MB (CK-2) 4.3 ng/mL (0-6.6) 05/07/20 19:49 Troponin I 0.354 ng/mL (< 0.028) H* 05/10/20 10:09 B-Natriuretic Peptide 843.9 pg/mL (0-100) H 05/07/20 19:49 Serum Total Protein 6.0 g/dL (6.0-8.3) 05/08/20 02:41 Albumin 2.5 g/dL (3.4-4.8) L 05/08/20 02:41 Urine Ketones Negative mg/dL (Negative) 05/07/20 20:49 Urine Blood Trace (Negative) A 05/07/20 20:49 Urine Nitrite Negative (Negative) 05/07/20 20:49 Ur Leukocyte Esterase 75 Lucy/uL (Negative) A 05/07/20 20:49 Urine RBC 0-3 HPF (0-3) 05/07/20 20:49 Urine WBC 7-10 HPF (0-3) A 05/07/20 20:49 Ur Squamous Epith Cells 7-10 HPF (0-3) A 05/07/20 20:49 Urine Bacteria 3+ HPF (None Seen) A 05/07/20 20:49 - Radiology Interpretation CT scan - head Additional Comment: Head CT showed acute to subacute left occipital lobe infarct PN A/P (1) CVA (cerebral vascular accident) Code(s): I63.9 - CEREBRAL INFARCTION, UNSPECIFIED Status: Acute (2) Seizures Code(s): R56.9 - UNSPECIFIED CONVULSIONS Status: Acute (3) SIRS (systemic inflammatory response syndrome) Code(s): R65.10 - SIRS OF NON-INFECTIOUS ORIGIN W/O ACUTE ORGAN DYSFUNCTION Status: Acute (4) RADHA (acute kidney injury) Code(s): N17.9 - ACUTE KIDNEY FAILURE, UNSPECIFIED Status: Acute (5) Breakthrough seizure Code(s): G40.919 - EPILEPSY, UNSP, INTRACTABLE, WITHOUT STATUS EPILEPTICUS Status: Acute (6) Dehydration, moderate Code(s): E86.0 - DEHYDRATION Status: Acute (7) UTI (urinary tract infection) Status: Acute Qualifiers: Urinary tract infection type: acute cystitis Hematuria presence: without hematuria Qualified Code(s): N30.00 - Acute cystitis without hematuria (8) Afib Code(s): I48.91 - UNSPECIFIED ATRIAL FIBRILLATION Status: Chronic Qualifiers: Atrial fibrillation type: paroxysmal Qualified Code(s): I48.0 - Paroxysmal atrial fibrillation (9) CAD (coronary artery disease) Code(s): I25.10 - ATHSCL HEART DISEASE OF [place] CORONARY ARTERY W/O ANG PCTRS Status: Chronic Qualifiers: Associated angina: without angina (10) Dementia Code(s): F03.90 - UNSPECIFIED DEMENTIA WITHOUT BEHAVIORAL DISTURBANCE Status: Chronic Qualifiers: Dementia type: unspecified type Dementia behavioral disturbance: without behavioral disturbance Qualified Code(s): F03.90 - Unspecified dementia without behavioral disturbance (11) Dyslipidemia Code(s): E78.5 - HYPERLIPIDEMIA, UNSPECIFIED Status: Chronic (12) H/O: CVA (cerebrovascular accident) Code(s): Z86.73 - PRSNL HX OF TIA (TIA), AND CEREB INFRC W/O RESID DEFICITS Status: Chronic (13) PVD (peripheral vascular disease) Code(s): I73.9 - PERIPHERAL VASCULAR DISEASE, UNSPECIFIED Status: Chronic - Plan Daily Plan: PT/OT, speech therapy, DVT proph w/SCDs Mrs. Glasgow is an 84-year-old female with history significant for dementia, coronary artery disease, prior CVA and seizure disorder presented with multiple seizure episodes consistent with status epilepticus. The patient continues to remain somnolent but no evidence of ongoing status epilepticus on multiple EEG recordings. She did have a clinical seizure 2 days ago during the rounds so was loaded with an extra dose of 1 g of Keppra IV and also given 2 mg of Ativan. She continues to remain somnolent and head CT was done 05/10/2020 was consistent with acute to subacute infarction in the left occipital lobe. No acute events in the last 24 hours. No seizures reported Continue Keppra 1 g IV every 12 hours for seizure prophylaxis. EEG done today to rule out ongoing seizure activity which is negative. Observe seizure precautions. Ativan 2 mg IV for seizure greater than 2 minutes. . Consider carotid Dopplers and 2D echocardiogram as part of stroke work-up. Continue telemetry-history of atrial fibrillation not on anticoagulation. Monitor control of blood pressure at this time Strict control of blood glucose Check hemoglobin A1c fasting lipid panel and TSH. Continue aspirin and high intensity statin for secondary stroke prevention. Neurochecks every 2 hours. Continue monitor respiratory status Continue home medications. N.p.o. till cleared by speech. PT/OT Case management consult Continue medical management per primary team. Plan discussed in detail with the nursing staff and also with the primary attending Dr. Esparza.
--- NOTE | 2020-05-12 16:16 | PDOC.HOSPP ---
- Subjective Encounter Date: 05/12/20 Encounter Time: 12:30 Subjective: Patient obtunded - Objective Vital Signs & Weight: Vital Signs (12 hours) Temp Pulse Pulse Resp BP BP Pulse Ox 05/12/20 13:03 100 138/63 05/12/20 11:30 96.8 F L 71 16 125/98 H 98 05/12/20 09:11 98 05/12/20 08:00 98 05/12/20 07:46 97.2 F L 94 18 134/69 Weight Admit Weight 161 lb 4.8 oz Weight 189 lb 11.2 oz I&O: 05/11/20 05/12/20 05/13/20 06:59 06:59 06:59 Intake Total 1150 840 292 Output Total 1000 800 Balance 150 40 292 Result Diagrams: 05/11/20 09:40 05/11/20 09:40 Hospitalist ROS - Review of Systems Other: Obtunded - Medication Medications: Active Medications Generic Name Dose Route Start Last Admin Trade Name Freq PRN Reason Stop Dose Admin Aspirin 81 mg 05/08/20 09:00 05/12/20 10:22 Aspirin 81 Mg Enteric Coated Tablet PO 81 mg DAILY IVELISSE Administration Atorvastatin Calcium 10 mg 05/08/20 21:00 05/11/20 22:18 Atorvastatin Calcium 10 Mg Tab PO 10 mg HS IVELISSE Administration Docusate Sodium 100 mg 05/08/20 09:00 05/12/20 10:22 Docusate 100 Mg Cap PO 100 mg DAILY IVELISSE Administration Donepezil HCl 10 mg 05/08/20 09:00 05/12/20 10:22 Donepezil Hcl 10 Mg Tab PO 10 mg DAILY IVELISSE Administration Duloxetine HCl 60 mg 05/08/20 09:00 05/12/20 10:22 Duloxetine 60 Mg Cap PO 60 mg DAILY IVELISSE Administration Famotidine 20 mg 05/09/20 09:00 05/12/20 10:22 Famotidine 20 Mg Tab PO 20 mg DAILY IVELISSE Administration Sodium Chloride 1,000 mls @ 70 mls/hr 05/08/20 01:30 05/12/20 06:32 Normal Saline 0.9% IV Not Given .[id number] IVELISSE Piperacillin Sod/Tazobactam 100 mls @ 200 mls/hr 05/10/20 14:00 05/12/20 06:28 Sod 4.5 gm/ Sodium Chloride IVPB 100 mls Q8HR IVELISSE Administration Midodrine 5 mg 05/08/20 09:00 05/12/20 16:13 Midodrine Hcl 5 Mg Tab PO Not Given TID IVELISSE Multivitamins 1 tab 05/08/20 09:00 05/12/20 10:22 Multivit, Therapeutic 1 Tab PO 1 tab DAILY IVELISSE Administration Saccharomyces Boulardii 250 mg 05/11/20 09:00 05/12/20 10:21 Saccharomyces Boulardii 250 Mg Cap PO 250 mg DAILY IVELISSE Administration Sodium Chloride 10 ml 05/08/20 09:00 05/12/20 10:22 Flush - Normal Saline 10 Ml Syringe IVF Not Given Q12HR IVELISSE - Exam Neck: negative: supple, symmetric, no JVD, no thyromegaly, no lymphadenopathy, no carotid bruit, JVD Heart: negative: RRR, no murmur, no gallops, no rubs, normal peripheral pulses, irregular, diminshed peripheral pulses, murmur present, II/IV, III/IV Respiratory: negative: CTAB, no wheezes, no rales, no ronchi, normal chest expansion, no tachypnea, normal percussion, rales, rhonchi, tachypneic, wheezes Hosp A/P - Plan (1) SIRS (systemic inflammatory response syndrome) Code(s): R65.10 - SIRS OF NON-INFECTIOUS ORIGIN W/O ACUTE ORGAN DYSFUNCTION Status: Acute (2) Seizures Code(s): R56.9 - UNSPECIFIED CONVULSIONS Status: Acute (3) RADHA (acute kidney injury) Code(s): N17.9 - ACUTE KIDNEY FAILURE, UNSPECIFIED Status: Acute (4) Breakthrough seizure Code(s): G40.919 - EPILEPSY, UNSP, INTRACTABLE, WITHOUT STATUS EPILEPTICUS Status: Acute (5) Dehydration, moderate Code(s): E86.0 - DEHYDRATION Status: Acute (6) UTI (urinary tract infection) Status: Acute Qualifiers: Urinary tract infection type: acute cystitis Hematuria presence: without hematuria Qualified Code(s): N30.00 - Acute cystitis without hematuria (7) Afib Code(s): I48.91 - UNSPECIFIED ATRIAL FIBRILLATION Status: Chronic Qualifiers: Atrial fibrillation type: paroxysmal Qualified Code(s): I48.0 - Paroxysmal atrial fibrillation (8) CAD (coronary artery disease) Code(s): I25.10 - ATHSCL HEART DISEASE OF [place] CORONARY ARTERY W/O ANG PCTRS Status: Chronic Qualifiers: Associated angina: without angina (9) Dementia Code(s): F03.90 - UNSPECIFIED DEMENTIA WITHOUT BEHAVIORAL DISTURBANCE Status: Chronic Qualifiers: Dementia type: unspecified type Dementia behavioral disturbance: without behavioral disturbance Qualified Code(s): F03.90 - Unspecified dementia without behavioral disturbance (10) Dyslipidemia Code(s): E78.5 - HYPERLIPIDEMIA, UNSPECIFIED Status: Chronic (11) H/O: CVA (cerebrovascular accident) Code(s): Z86.73 - PRSNL HX OF TIA (TIA), AND CEREB INFRC W/O RESID DEFICITS Status: Chronic (12) PVD (peripheral vascular disease) Code(s): I73.9 - PERIPHERAL VASCULAR DISEASE, UNSPECIFIED Status: Chronic - Plan is on keppra, likely had breakthrough seizures, eeg x2 did not show epileptiform focus, is following her. prior h/o cva might be the focus for seizures? gentle iv hydration, cefepime, asp, lipitor, midodrine, cymbalta and aricept type 2 [place] sec to seizure activity low alb of 2.5 blood and urine cultures were -ve, switch to oral antibiotics when she can tolerate po. prognosis guarded, I have given updates to son Mr.Sanders Esquivel over phone 05/08, 05/2020 1/2 patient continues to have an elevated WBCs we will change antibiotics to Zosyn. Patient is getting an EEG again. She continues to be on Keppra IV. Not much change in her mentation. She does withdraw to painful stimulation. 05/11 spoke with pt's son and updated him. I also spoke with neurology who stated that pt had a seizure while she was in the room evaluating the pt. Her keppra dose was increase and pt was given ativan. pt also has a stroke in her left occipital area. she is on asa/statin. will order echo and carotid Doppler. 05/12 spoke with family yesterday explain patient's overall poor outcome. Recommended hospice. Patient unable to tolerate feedings.
[2020-05-12] MEDS: levETIRAcetam 500 mg/5 ml Oral Solution PO SCH (22:08)
[2020-05-12] MEDS: Atorvastatin Calcium 10 MG TAB PO SCH (22:09)
[2020-05-13] MEDS: Piperacillin/Tazobactam 4.5 GM in Sodium Chloride 0.9% 100 ML IVPB SCH ×4 (02:19→23:46)
[2020-05-13 04:55] VITALS: BMI 36.1
[2020-05-13] MEDS ORDERED: Fentanyl 100 MCG/2 ML VIAL ONE (06:39)
[2020-05-13] MEDS ORDERED: Meperidine HCl/PF 25 MG/ML VIAL ONE (06:39)
[2020-05-13] MEDS ORDERED: Lidocaine 4% Topical Sol 50 ML BOT ONE (06:42)
[2020-05-13] MEDS: Midodrine HCl 5 MG TAB PO SCH ×2 (10:01→15:49)
[2020-05-13] MEDS: levETIRAcetam 500 mg/5 ml Oral Solution PO SCH (10:01)
[2020-05-13] MEDS: Donepezil HCl 10 MG TAB PO SCH (10:01)
[2020-05-13] MEDS: Saccharomyces boulardii 250 MG CAP PO SCH (10:01)
[2020-05-13] MEDS: Docusate 100 MG CAP PO SCH (10:01)
[2020-05-13] MEDS: Aspirin 81 mg Enteric Coated Tablet PO SCH (10:02)
[2020-05-13] MEDS: Famotidine 20 MG TAB PO SCH (10:02)
[2020-05-13] MEDS: DULoxetine 60 MG CAP PO SCH (10:02)
[2020-05-13] MEDS: Multivit, Therapeutic 1 TAB PO SCH (10:03)
[2020-05-13] MEDS: Sodium Chloride 0.9% 1,000 ML IV SCH (11:26)
--- NOTE | 2020-05-13 14:51 | PDOC.NEUPN ---
- Subjective Encounter Date: 05/13/20 Subjective: Patient continues to remain somnolent - Objective Vital Signs & Weight: Vital Signs (12 hours) Temp Pulse Resp BP Pulse Ox 05/13/20 12:00 97.9 F 93 24 H 142/80 H 100 05/13/20 08:00 98.1 F 100 20 136/92 H 100 05/13/20 04:00 97.7 F 98 24 H 131/87 100 Weight Admit Weight 161 lb 4.8 oz Weight 197 lb 11.2 oz I&O: 05/12/20 05/13/20 05/14/20 06:59 06:59 06:59 Intake Total 840 1027 150 Output Total 800 310 Balance 40 717 150 Result Diagrams: 05/11/20 09:40 05/11/20 09:40 Radiology Reviewed by me: Yes EKG Reviewed by me: Yes ROS - Review of Systems ROS unobtainable: due to mental status - Medication Medications: Active Medications Generic Name Dose Route Start Last Admin Trade Name Freq PRN Reason Stop Dose Admin Aspirin 81 mg 05/08/20 09:00 05/13/20 10:02 Aspirin 81 Mg Enteric Coated Tablet PO 81 mg DAILY IVELISSE Administration Atorvastatin Calcium 10 mg 05/08/20 21:00 05/12/20 22:09 Atorvastatin Calcium 10 Mg Tab PO 10 mg HS IVELISSE Administration Docusate Sodium 100 mg 05/08/20 09:00 05/13/20 10:01 Docusate 100 Mg Cap PO 100 mg DAILY IVELISSE Administration Donepezil HCl 10 mg 05/08/20 09:00 05/13/20 10:01 Donepezil Hcl 10 Mg Tab PO 10 mg DAILY IVELISSE Administration Duloxetine HCl 60 mg 05/08/20 09:00 05/13/20 10:02 Duloxetine 60 Mg Cap PO Not Given DAILY IVELISSE Famotidine 20 mg 05/09/20 09:00 05/13/20 10:02 Famotidine 20 Mg Tab PO 20 mg DAILY IVELISSE Administration Sodium Chloride 1,000 mls @ 70 mls/hr 05/08/20 01:30 05/13/20 11:26 Normal Saline 0.9% IV Not Given .[id number] IVELISSE Piperacillin Sod/Tazobactam 100 mls @ 200 mls/hr 05/10/20 14:00 05/13/20 12:34 Sod 4.5 gm/ Sodium Chloride IVPB Not Given Q8HR IVELISSE Levetiracetam 1,000 mg 05/12/20 21:00 05/13/20 10:01 Levetiracetam 500 Mg/5 Ml Oral Solution PO 1,000 mg BID IVELISSE Administration Midodrine 5 mg 05/08/20 09:00 05/13/20 10:01 Midodrine Hcl 5 Mg Tab PO 5 mg TID IVELISSE Administration Multivitamins 1 tab 05/08/20 09:00 05/13/20 10:03 Multivit, Therapeutic 1 Tab PO Not Given DAILY IVELISSE Saccharomyces Boulardii 250 mg 05/11/20 09:00 05/13/20 10:01 Saccharomyces Boulardii 250 Mg Cap PO 250 mg DAILY IVELISSE Administration Sodium Chloride 10 ml 05/08/20 09:00 05/13/20 10:03 Flush - Normal Saline 10 Ml Syringe IVF Not Given Q12HR IVELISSE - Exam General Appearance: ill appearing Eye: PERRL ENT: normocephalic atraumatic Neck: supple Respiratory: CTAB Cardiovascular: RRR Gastrointestinal: soft Extremities: no cyanosis Skin: normal turgor Neurological: no new deficit Musculoskeletal: no muscle wasting PSYCH: somnolent, lethargic Results - Labs Result Diagrams: 05/11/20 09:40 05/11/20 09:40 Lab results: WBC 11.3 thou/uL (4.8-10.8) H 05/11/20 09:40 Hgb 13.8 g/dL (12.0-16.0) 05/11/20 09:40 Hct 43.9 % (36.0-47.0) 05/11/20 09:40 MCV 92.7 fL (78.0-98.0) 05/11/20 09:40 Plt Count 175 thou/uL (130-400) 05/11/20 09:40 Neutrophils % 75.3 % (42.0-75.0) H 05/11/20 09:40 Band Neuts % (Manual) 5 % (5-11) 05/11/20 09:40 Sodium 144 mmol/L (136-145) 05/11/20 09:40 Potassium 5.0 mmol/L (3.5-5.1) 05/11/20 09:40 Chloride 113 mmol/L (98-107) H 05/11/20 09:40 Carbon Dioxide 16 mmol/L (23-31) L 05/11/20 09:40 BUN 26 mg/dL (9.8-20.1) H 05/11/20 09:40 Creatinine 1.37 mg/dL (0.6-1.1) H 05/11/20 09:40 Glucose 71 mg/dL (83-110) L 05/11/20 09:40 Lactic Acid 1.4 mmol/L (0.5-2.2) 05/10/20 10:09 Calcium 8.1 mg/dL (7.8-10.44) 05/11/20 09:40 Total Bilirubin 0.8 mg/dL (0.2-1.2) 05/08/20 02:41 AST 55 U/L (5-34) H 05/08/20 02:41 ALT 16 U/L (8-55) 05/08/20 02:41 Alkaline Phosphatase 79 U/L (40-110) 05/08/20 02:41 CK-MB (CK-2) 4.3 ng/mL (0-6.6) 05/07/20 19:49 Troponin I 0.354 ng/mL (< 0.028) H* 05/10/20 10:09 B-Natriuretic Peptide 843.9 pg/mL (0-100) H 05/07/20 19:49 Serum Total Protein 6.0 g/dL (6.0-8.3) 05/08/20 02:41 Albumin 2.5 g/dL (3.4-4.8) L 05/08/20 02:41 Urine Ketones Negative mg/dL (Negative) 05/07/20 20:49 Urine Blood Trace (Negative) A 05/07/20 20:49 Urine Nitrite Negative (Negative) 05/07/20 20:49 Ur Leukocyte Esterase 75 Lucy/uL (Negative) A 05/07/20 20:49 Urine RBC 0-3 HPF (0-3) 05/07/20 20:49 Urine WBC 7-10 HPF (0-3) A 05/07/20 20:49 Ur Squamous Epith Cells 7-10 HPF (0-3) A 05/07/20 20:49 Urine Bacteria 3+ HPF (None Seen) A 05/07/20 20:49 - Radiology Interpretation CT scan - head Additional Comment: Acute a subacute stroke in the left occipital lobe PN A/P (1) CVA (cerebral vascular accident) Code(s): I63.9 - CEREBRAL INFARCTION, UNSPECIFIED Status: Acute (2) Seizures Code(s): R56.9 - UNSPECIFIED CONVULSIONS Status: Acute (3) SIRS (systemic inflammatory response syndrome) Code(s): R65.10 - SIRS OF NON-INFECTIOUS ORIGIN W/O ACUTE ORGAN DYSFUNCTION Status: Acute (4) RADHA (acute kidney injury) Code(s): N17.9 - ACUTE KIDNEY FAILURE, UNSPECIFIED Status: Acute (5) Breakthrough seizure Code(s): G40.919 - EPILEPSY, UNSP, INTRACTABLE, WITHOUT STATUS EPILEPTICUS Status: Acute (6) Dehydration, moderate Code(s): E86.0 - DEHYDRATION Status: Acute (7) UTI (urinary tract infection) Status: Acute Qualifiers: Urinary tract infection type: acute cystitis Hematuria presence: without hematuria Qualified Code(s): N30.00 - Acute cystitis without hematuria (8) Afib Code(s): I48.91 - UNSPECIFIED ATRIAL FIBRILLATION Status: Chronic Qualifiers: Atrial fibrillation type: paroxysmal Qualified Code(s): I48.0 - Paroxysmal atrial fibrillation (9) CAD (coronary artery disease) Code(s): I25.10 - ATHSCL HEART DISEASE OF [place] CORONARY ARTERY W/O ANG PCTRS Status: Chronic Qualifiers: Associated angina: without angina (10) Dementia Code(s): F03.90 - UNSPECIFIED DEMENTIA WITHOUT BEHAVIORAL DISTURBANCE Status: Chronic Qualifiers: Dementia type: unspecified type Dementia behavioral disturbance: without behavioral disturbance Qualified Code(s): F03.90 - Unspecified dementia without behavioral disturbance (11) Dyslipidemia Code(s): E78.5 - HYPERLIPIDEMIA, UNSPECIFIED Status: Chronic (12) H/O: CVA (cerebrovascular accident) Code(s): Z86.73 - PRSNL HX OF TIA (TIA), AND CEREB INFRC W/O RESID DEFICITS Status: Chronic (13) PVD (peripheral vascular disease) Code(s): I73.9 - PERIPHERAL VASCULAR DISEASE, UNSPECIFIED Status: Chronic - Plan Daily Plan: PT/OT, speech therapy, DVT proph w/SCDs Mrs. Glasgow is an 84-year-old female with history significant for dementia, coronary artery disease, prior CVA and seizure disorder presented with multiple seizure episodes consistent with status epilepticus. The patient continues to remain somnolent but no evidence of ongoing status epilepticus on multiple EEG recordings. No acute events in the last 24 hours. No seizures reported no seizure in the last 24 hours Continue Keppra 1 g IV every 12 hours for seizure prophylaxis. EEG done today to rule out ongoing seizure activity which is negative but did show occasional spikes consistent with underlying seizure disorder Observe seizure precautions. Ativan 2 mg IV for seizure greater than 2 minutes. . 2D echocardiogram pending Carotid Doppler showed occlusion of the left internal carotid artery. CTA is recommended Continue telemetry-history of atrial fibrillation not on anticoagulation. Monitor control of blood pressure at this time Strict control of blood glucose Check hemoglobin A1c fasting lipid panel and TSH. Continue aspirin and high intensity statin for secondary stroke prevention. Neurochecks every 2 hours. Continue monitor respiratory status Continue home medications. N.p.o. till cleared by speech. PT/OT Case management regarding discharge planning. Palliative care consult. Continue medical management per primary team.
--- NOTE | 2020-05-13 14:54 | PDOC.EEG ---
Neurology EEG Report - Report Report: This EEG was performed using 24 channel [employer] video EEG machine with 24 disc michelle ctrodes. This was an extended 2 hours 4 minutes of inpatient video EEG recording. Digital analysis of the EEG was done for spike and seizure detection which revealed no abnormalities. Background: The posterior background rhythm was not observed. Hyperventilation: Not performed. Photic Stimulation: No significant response. Sleep: No stage change is observed. Spells: None EEG Diagnosis: Generalized irregular theta activity at times sharply contoured intermixed with occasional sharps seen throughout the recording. Absence of Posterior background rhythm. Clinical Interpretation: This EEG is consistent with interictal expression of epilepsy in the setting of moderate generalized nonspecific cerebral dysfunction. No electrographic seizures captured during the recording.
--- NOTE | 2020-05-13 16:39 | PDOC.HOSPP ---
- Subjective Encounter Date: 05/13/20 Encounter Time: 11:20 Subjective: Patient continues to be obtunded - Objective Vital Signs & Weight: Vital Signs (12 hours) Temp Pulse Resp BP Pulse Ox 05/13/20 15:39 98.0 F 91 24 H 175/87 H 05/13/20 12:00 97.9 F 93 24 H 142/80 H 100 05/13/20 08:00 98.1 F 100 20 136/92 H 100 Weight Admit Weight 161 lb 4.8 oz Weight 197 lb 11.2 oz I&O: 05/12/20 05/13/20 05/14/20 06:59 06:59 06:59 Intake Total 840 1027 407 Output Total 800 310 Balance 40 717 407 Result Diagrams: 05/11/20 09:40 05/11/20 09:40 Hospitalist ROS - Review of Systems Other: Patient not awake. - Medication Medications: Active Medications Generic Name Dose Route Start Last Admin Trade Name Freq PRN Reason Stop Dose Admin Aspirin 81 mg 05/08/20 09:00 05/13/20 10:02 Aspirin 81 Mg Enteric Coated Tablet PO 81 mg DAILY IVELISSE Administration Atorvastatin Calcium 10 mg 05/08/20 21:00 05/12/20 22:09 Atorvastatin Calcium 10 Mg Tab PO 10 mg HS IVELISSE Administration Docusate Sodium 100 mg 05/08/20 09:00 05/13/20 10:01 Docusate 100 Mg Cap PO 100 mg DAILY IVELISSE Administration Donepezil HCl 10 mg 05/08/20 09:00 05/13/20 10:01 Donepezil Hcl 10 Mg Tab PO 10 mg DAILY IVELISSE Administration Duloxetine HCl 60 mg 05/08/20 09:00 05/13/20 10:02 Duloxetine 60 Mg Cap PO Not Given DAILY IVELISSE Famotidine 20 mg 05/09/20 09:00 05/13/20 10:02 Famotidine 20 Mg Tab PO 20 mg DAILY IVELISSE Administration Sodium Chloride 1,000 mls @ 70 mls/hr 05/08/20 01:30 05/13/20 11:26 Normal Saline 0.9% IV Not Given .[id number] IVELISSE Piperacillin Sod/Tazobactam 100 mls @ 200 mls/hr 05/10/20 14:00 05/13/20 12:34 Sod 4.5 gm/ Sodium Chloride IVPB Not Given Q8HR IVELISSE Levetiracetam 1,000 mg 05/12/20 21:00 05/13/20 10:01 Levetiracetam 500 Mg/5 Ml Oral Solution PO 1,000 mg BID IVELISSE Administration Midodrine 5 mg 05/08/20 09:00 05/13/20 15:49 Midodrine Hcl 5 Mg Tab PO 5 mg TID IVELISSE Administration Multivitamins 1 tab 05/08/20 09:00 05/13/20 10:03 Multivit, Therapeutic 1 Tab PO Not Given DAILY IVELISSE Saccharomyces Boulardii 250 mg 05/11/20 09:00 05/13/20 10:01 Saccharomyces Boulardii 250 Mg Cap PO 250 mg DAILY IVELISSE Administration Sodium Chloride 10 ml 05/08/20 09:00 05/13/20 10:03 Flush - Normal Saline 10 Ml Syringe IVF Not Given Q12HR IVELISSE - Exam Neck: negative: supple, symmetric, no JVD, no thyromegaly, no lymphadenopathy, no carotid bruit, JVD Heart: negative: RRR, no murmur, no gallops, no rubs, normal peripheral pulses, irregular, diminshed peripheral pulses, murmur present, II/IV, III/IV Respiratory: negative: CTAB, no wheezes, no rales, no ronchi, normal chest e xpansion, no tachypnea, normal percussion, rales, rhonchi, tachypneic, wheezes Hosp A/P - Plan (1) SIRS (systemic inflammatory response syndrome) Code(s): R65.10 - SIRS OF NON-INFECTIOUS ORIGIN W/O ACUTE ORGAN DYSFUNCTION Status: Acute (2) Seizures Code(s): R56.9 - UNSPECIFIED CONVULSIONS Status: Acute (3) RADHA (acute kidney injury) Code(s): N17.9 - ACUTE KIDNEY FAILURE, UNSPECIFIED Status: Acute (4) Breakthrough seizure Code(s): G40.919 - EPILEPSY, UNSP, INTRACTABLE, WITHOUT STATUS EPILEPTICUS Status: Acute (5) Dehydration, moderate Code(s): E86.0 - DEHYDRATION Status: Acute (6) UTI (urinary tract infection) Status: Acute Qualifiers: Urinary tract infection type: acute cystitis Hematuria presence: without hematuria Qualified Code(s): N30.00 - Acute cystitis without hematuria (7) Afib Code(s): I48.91 - UNSPECIFIED ATRIAL FIBRILLATION Status: Chronic Qualifiers: Atrial fibrillation type: paroxysmal Qualified Code(s): I48.0 - Paroxysmal atrial fibrillation (8) CAD (coronary artery disease) Code(s): I25.10 - ATHSCL HEART DISEASE OF [place] CORONARY ARTERY W/O ANG PCTRS Status: Chronic Qualifiers: Associated angina: without angina (9) Dementia Code(s): F03.90 - UNSPECIFIED DEMENTIA WITHOUT BEHAVIORAL DISTURBANCE Status: Chronic Qualifiers: Dementia type: unspecified type Dementia behavioral disturbance: without behavioral disturbance Qualified Code(s): F03.90 - Unspecified dementia without behavioral disturbance (10) Dyslipidemia Code(s): E78.5 - HYPERLIPIDEMIA, UNSPECIFIED Status: Chronic (11) H/O: CVA (cerebrovascular accident) Code(s): Z86.73 - PRSNL HX OF TIA (TIA), AND CEREB INFRC W/O RESID DEFICITS Status: Chronic (12) PVD (peripheral vascular disease) Code(s): I73.9 - PERIPHERAL VASCULAR DISEASE, UNSPECIFIED Status: Chronic - Plan is on keppra, likely had breakthrough seizures, eeg x2 did not show epileptiform focus, is following her. prior h/o cva might be the focus for seizures? gentle iv hydration, cefepime, asp, lipitor, midodrine, cymbalta and aricept type 2 UT sec to seizure activity low alb of 2.5 blood and urine cultures were -ve, switch to oral antibiotics when she can tolerate po. prognosis guarded, I have given updates to son Mr.Sanders Esquivel over phone 05/08, 05/2020 patient continues to have an elevated WBCs we will change antibiotics to Zosyn. Patient is getting an EEG again. She continues to be on Keppra IV. Not much change in her mentation. She does withdraw to painful stimulation. 05/11 spoke with pt's son and updated him. I also spoke with neurology who stated that pt had a seizure while she was in the room evaluating the pt. Her keppra dose was increase and pt was given ativan. pt also has a stroke in her left occipital area. she is on asa/statin. will order echo and carotid Doppler. 05/12 spoke with family yesterday explain patient's overall poor outcome. Recommended hospice. Patient unable to tolerate feedings. 05/13 spoke with family again today about patient's overall poor outcome and recommended hospice. We will get palliative care. Patient not tolerating feedings due to high residuals
[2020-05-14] MEDS: Amoxicillin/Potassium Clav 600 mg/5 ml Oral Suspension PO SCH ×3 (00:20→23:12)
[2020-05-14] MEDS: levETIRAcetam 500 mg/5 ml Oral Solution PO SCH ×3 (00:24→23:13)
[2020-05-14] MEDS: Atorvastatin Calcium 10 MG TAB PO SCH ×2 (00:24→23:12)
[2020-05-14] MEDS: Midodrine HCl 5 MG TAB PO SCH ×4 (00:24→23:12)
[2020-05-14] MEDS: Piperacillin/Tazobactam 4.5 GM in Sodium Chloride 0.9% 100 ML IVPB SCH ×3 (00:25→23:13)
[2020-05-14] MEDS: Sodium Chloride 0.9% 1,000 ML IV SCH ×2 (00:26→14:13)
--- NOTE | 2020-05-14 09:46 | CT ---
EXAM: CT Brain WO Con PROVIDED CLINICAL HISTORY: Altered mental status COMPARISON: 05/10/2020 FINDINGS: The ventricular system remains normal in size and morphology. There is no evidence for intracranial h emorrhage or mass effect. Subacute left occipital infarction is redemonstrated. Chronic ischemic changes are also again seen. There is no evidence for intracranial hemorrhage. There is no shift of t he midline structures. The basilar cisterns appear patent. The extracranial soft tissues and osseous structures appear unremarkable. IMPRESSION: No evidence for intracranial hemorrhage or mass effect.
[2020-05-14] MEDS: Aspirin 81 mg Enteric Coated Tablet PO SCH (10:44)
[2020-05-14] MEDS: Saccharomyces boulardii 250 MG CAP PO SCH (10:44)
[2020-05-14] MEDS: Famotidine 20 MG TAB PO SCH (10:45)
[2020-05-14] MEDS: Docusate 100 MG CAP PO SCH (10:45)
[2020-05-14] MEDS: Donepezil HCl 10 MG TAB PO SCH (10:45)
[2020-05-14] MEDS: DULoxetine 60 MG CAP PO SCH (10:45)
[2020-05-14] MEDS: Multivit, Therapeutic 1 TAB PO SCH (10:49)
[2020-05-14 10:54] LABS: Hemoglobin 14.5 g/dL (12.0-16.0); Mean Corpuscular HGB CONC 30.2 g/dL (32.0-36.0); Mean Corpuscular Hemoglobin 28.3 pg (27.0-31.0); Mean Corpuscular Volume 93.7 fL (78.0-98.0); Mean Platelet Volume 9.2 fL (7.4-10.4); Platelet Count 132 thou/uL (130-400); RBC Distribution Width 15.9 % (11.5-14.5); Red Blood Cell (RBC) Count 5.11 mill/uL (4.20-5.40)
[2020-05-14 11:16] LABS: Calcium 8.8 mg/dL (7.8-10.44); Chloride 116 mmol/L (98-107); Potassium 4.3 mmol/L (3.5-5.1); Sodium 143 mmol/L (136-145)
[2020-05-14 11:28] LABS: Glucose 129 mg/dL (83-110)
[2020-05-14 11:30] LABS: Anion Gap 16 mmol/L (10-20); Carbon Dioxide 14 mmol/L (23-31)
[2020-05-14 11:32] LABS: Calc. Creatinine Clearance 29 mL/min (70-130)
[2020-05-14 11:33] LABS: BUN (Urea Nitrogen) 31 mg/dL (9.8-20.1)
[2020-05-14 11:34] LABS: Magnesium 1.8 mg/dL (1.6-2.6)
[2020-05-14 11:37] LABS: Band 1 % (5-11); Burr Cells SLIGHT = 2-5 cells (100X) (0-1/hpf); Eosinophils 2 % (0-10); Lymphocytes 18 % (21-51); MDiff Complete? YES; Monocytes 2 % (0-10); Neutrophil 77 % (42-75); Nucleated RBC 1 % (0); Platelet Morphology Comment Appears Adequate; Polychromasia SLIGHT = 2-3 cells (100X) (0-2/hpf); Target Cells SLIGHT = 2-5 cells (100X) (0-1/hpf)
--- NOTE | 2020-05-14 12:28 | PDOC.NEUPN ---
- Subjective Encounter Date: 05/14/20 Subjective: Patient continues to remain somnolen but no reported seizures. - Objective Vital Signs & Weight: Vital Signs (12 hours) Temp Pulse Resp BP Pulse Ox 05/14/20 12:00 96.1 F L 100 24 H 164/72 H 93 L 05/14/20 08:00 97.2 F L 83 40 H 162/99 H 95 05/14/20 03:59 98.0 F 89 20 150/86 H 94 L Weight Admit Weight 161 lb 4.8 oz Weight 197 lb 11.2 oz I&O: 05/13/20 05/14/20 05/15/20 06:59 06:59 06:59 Intake Total 1027 644 Output Total 310 400 Balance 717 244 Result Diagrams: 05/13/20 10:37 05/14/20 10:37 Radiology Reviewed by me: Yes EKG Reviewed by me: Yes ROS - Review of Systems ROS unobtainable: due to mental status - Medication Medications: Active Medications Generic Name Dose Route Start Last Admin Trade Name Cheri PRN Reason Stop Dose Admin Amoxicillin/Clavulanate Potassium 600 mg 05/13/20 21:00 05/14/20 10:45 Amoxicillin/Potassium Clav 600 Mg/5 Ml Oral Suspension PO 600 mg BID IVELISSE Administration Aspirin 81 mg 05/08/20 09:00 05/14/20 10:44 Aspirin 81 Mg Enteric Coated Tablet PO 81 mg DAILY IVELISSE Administration Atorvastatin Calcium 10 mg 05/08/20 21:00 05/14/20 00:24 Atorvastatin Calcium 10 Mg Tab PO 10 mg HS IVELISSE Administration Docusate Sodium 100 mg 05/08/20 09:00 05/14/20 10:45 Docusate 100 Mg Cap PO 100 mg DAILY IVELISSE Administration Donepezil HCl 10 mg 05/08/20 09:00 05/14/20 10:45 Donepezil Hcl 10 Mg Tab PO 10 mg DAILY IVELISSE Administration Duloxetine HCl 60 mg 05/08/20 09:00 05/14/20 10:45 Duloxetine 60 Mg Cap PO 60 mg DAILY IVELISSE Administration Famotidine 20 mg 05/09/20 09:00 05/14/20 10:45 Famotidine 20 Mg Tab PO 20 mg DAILY IVELISSE Administration Sodium Chloride 1,000 mls @ 70 mls/hr 05/08/20 01:30 05/14/20 00:26 Normal Saline 0.9% IV Not Given .[id number] IVELISSE Piperacillin Sod/Tazobactam 100 mls @ 200 mls/hr 05/10/20 14:00 05/14/20 00:25 Sod 4.5 gm/ Sodium Chloride IVPB Not Given Q8HR IVELISSE Levetiracetam 1,000 mg 05/12/20 21:00 05/14/20 10:44 Levetiracetam 500 Mg/5 Ml Oral Solution PO 1,000 mg BID IVELISSE Administration Midodrine 5 mg 05/08/20 09:00 05/14/20 10:49 Midodrine Hcl 5 Mg Tab PO 5 mg TID IVELISSE Administration Multivitamins 1 tab 05/08/20 09:00 05/14/20 10:49 Multivit, Therapeutic 1 Tab PO 1 tab DAILY IVELISSE Administration Saccharomyces Boulardii 250 mg 05/11/20 09:00 05/14/20 10:44 Saccharomyces Boulardii 250 Mg Cap PO 250 mg DAILY IVELISSE Administration Sodium Chloride 10 ml 05/08/20 09:00 05/14/20 10:49 Flush - Normal Saline 10 Ml Syringe IVF 10 ml Q12HR IVELISSE Administration - Exam General Appearance: ill appearing Eye: PERRL ENT: normocephalic atraumatic Neck: supple Respiratory: CTAB Cardiovascular: RRR Gastrointestinal: soft Extremities: no cyanosis Skin: normal turgor Neurological: no new deficit Musculoskeletal: normal tone, no muscle wasting PSYCH: somnolent, lethargic Results - Labs Result Diagrams: 05/13/20 10:37 05/14/20 10:37 Lab results: WBC 15.0 thou/uL (4.8-10.8) H 05/13/20 10:37 Hgb 14.5 g/dL (12.0-16.0) 05/13/20 10:37 Hct 47.9 % (36.0-47.0) H 05/13/20 10:37 MCV 93.7 fL (78.0-98.0) 05/13/20 10:37 Plt Count 132 thou/uL (130-400) 05/13/20 10:37 Neutrophils % 75.3 % (42.0-75.0) H 05/11/20 09:40 Band Neuts % (Manual) 1 % (5-11) L 05/13/20 10:37 Sodium 143 mmol/L (136-145) 05/14/20 10:37 Potassium 4.3 mmol/L (3.5-5.1) 05/14/20 10:37 Chloride 116 mmol/L (98-107) H 05/14/20 10:37 Carbon Dioxide 14 mmol/L (23-31) L 05/14/20 10:37 BUN 31 mg/dL (9.8-20.1) H 05/14/20 10:37 Creatinine 1.98 mg/dL (0.6-1.1) H 05/14/20 10:37 Glucose 129 mg/dL (83-110) H 05/14/20 10:37 Lactic Acid 1.4 mmol/L (0.5-2.2) 05/10/20 10:09 Calcium 8.8 mg/dL (7.8-10.44) 05/14/20 10:37 Total Bilirubin 0.8 mg/dL (0.2-1.2) 05/08/20 02:41 AST 55 U/L (5-34) H 05/08/20 02:41 ALT 16 U/L (8-55) 05/08/20 02:41 Alkaline Phosphatase 79 U/L (40-110) 05/08/20 02:41 CK-MB (CK-2) 4.3 ng/mL (0-6.6) 05/07/20 19:49 Troponin I 0.354 ng/mL (< 0.028) H* 05/10/20 10:09 B-Natriuretic Peptide 843.9 pg/mL (0-100) H 05/07/20 19:49 Serum Total Protein 6.0 g/dL (6.0-8.3) 05/08/20 02:41 Albumin 2.5 g/dL (3.4-4.8) L 05/08/20 02:41 Urine Ketones Negative mg/dL (Negative) 05/07/20 20:49 Urine Blood Trace (Negative) A 05/07/20 20:49 Urine Nitrite Negative (Negative) 05/07/20 20:49 Ur Leukocyte Esterase 75 Lucy/uL (Negative) A 05/07/20 20:49 Urine RBC 0-3 HPF (0-3) 05/07/20 20:49 Urine WBC 7-10 HPF (0-3) A 05/07/20 20:49 Ur Squamous Epith Cells 7-10 HPF (0-3) A 05/07/20 20:49 Urine Bacteria 3+ HPF (None Seen) A 05/07/20 20:49 - Radiology Interpretation CT scan - head Additional Comment: No acute intracranial pathology PN A/P (1) CVA (cerebral vascular accident) Code(s): I63.9 - CEREBRAL INFARCTION, UNSPECIFIED Status: Acute (2) Seizures Code(s): R56.9 - UNSPECIFIED CONVULSIONS Status: Acute (3) SIRS (systemic inflammatory response syndrome) Code(s): R65.10 - SIRS OF NON-INFECTIOUS ORIGIN W/O ACUTE ORGAN DYSFUNCTION Status: Acute (4) RADHA (acute kidney injury) Code(s): N17.9 - ACUTE KIDNEY FAILURE, UNSPECIFIED Status: Acute (5) Breakthrough seizure Code(s): G40.919 - EPILEPSY, UNSP, INTRACTABLE, WITHOUT STATUS EPILEPTICUS Status: Acute (6) Dehydration, moderate Code(s): E86.0 - DEHYDRATION Status: Acute (7) UTI (urinary tract infection) Status: Acute Qualifiers: Urinary tract infection type: acute cystitis Hematuria presence: without hematuria Qualified Code(s): N30.00 - Acute cystitis without hematuria (8) Afib Code(s): I48.91 - UNSPECIFIED ATRIAL FIBRILLATION Status: Chronic Qualifiers: Atrial fibrillation type: paroxysmal Qualified Code(s): I48.0 - Paroxysmal atrial fibrillation (9) CAD (coronary artery disease) Code(s): I25.10 - ATHSCL HEART DISEASE OF [place] CORONARY ARTERY W/O ANG PCTRS Status: Chronic Qualifiers: Associated angina: without angina (10) Dementia Code(s): F03.90 - UNSPECIFIED DEMENTIA WITHOUT BEHAVIORAL DISTURBANCE Status: Chronic Qualifiers: Dementia type: unspecified type Dementia behavioral disturbance: without behavioral disturbance Qualified Code(s): F03.90 - Unspecified dementia without behavioral disturbance (11) Dyslipidemia Code(s): E78.5 - HYPERLIPIDEMIA, UNSPECIFIED Status: Chronic (12) H/O: CVA (cerebrovascular accident) Code(s): Z86.73 - PRSNL HX OF TIA (TIA), AND CEREB INFRC W/O RESID DEFICITS Status: Chronic (13) PVD (peripheral vascular disease) Code(s): I73.9 - PERIPHERAL VASCULAR DISEASE, UNSPECIFIED Status: Chronic - Plan Daily Plan: PT/OT, speech therapy, DVT proph w/lovenox Mrs. Glasgow is an 84-year-old female with history significant for dementia, coronary artery disease, prior CVA and seizure disorder presented with multiple seizure episodes consistent with status epilepticus. The patient continues to remain somnolent but no evidence of ongoing status epilepticus on multiple EEG recordings. No acute events in the last 24 hours. No seizures reported no seizure in the last 24 hours.HCT repeated today which did not show any evidence of new stroke or bleed. Prior HCT was positive for subacute left occipital lobe infarct. Continue Keppra 1 g IV every 12 hours for seizure prophylaxis. EEG done yesterday to rule out ongoing seizure activity which is negative but did show occasional spikes consistent with underlying seizure disorder Observe seizure precautions. Ativan 2 mg IV for seizure greater than 2 minutes. . 2D echocardiogram pending Carotid Doppler showed occlusion of the left internal carotid artery. CTA is recommended Continue telemetry-history of atrial fibrillation not on anticoagulation. Monitor control of blood pressure at this time Strict control of blood glucose Check hemoglobin A1c fasting lipid panel and TSH. Continue aspirin and high intensity statin for secondary stroke prevention. Neurochecks every 2 hours. Continue monitor respiratory status Continue home medications. N.p.o. till cleared by speech. PT/OT Case management regarding discharge planning. Palliative care team on board Continue medical management per primary team.
[2020-05-14] MEDS ORDERED: Pancrelipase DR 12,000 1 CAP FS PRN (12:30)
[2020-05-14] MEDS ORDERED: Sodium Bicarbonate Tab 325 MG TAB PER TUBE PRN (12:30)
--- NOTE | 2020-05-14 17:40 | PDOC.HOSPP ---
- Subjective Encounter Date: 05/14/20 Encounter Time: 12:30 Subjective: Patient continues to be obtunded. Moves only with painful stimulation - Objective Vital Signs & Weight: Vital Signs (12 hours) Temp Pulse Resp BP Pulse Ox 05/14/20 16:00 97.7 F 90 20 158/80 H 94 L 05/14/20 12:00 96.1 F L 100 24 H 164/72 H 93 L 05/14/20 08:00 97.2 F L 83 40 H 162/99 H 95 Weight Admit Weight 161 lb 4.8 oz Weight 197 lb 11.2 oz I&O: 05/13/20 05/14/20 05/15/20 06:59 06:59 06:59 Intake Total 1027 644 Output Total 310 400 Balance 717 244 Result Diagrams: 05/13/20 10:37 05/14/20 10:37 Hospitalist ROS - Review of Systems Other: Unable to obtain. - Medication Medications: Active Medications Generic Name Dose Route Start Last Admin Trade Name Freq PRN Reason Stop Dose Admin Amoxicillin/Clavulanate Potassium 600 mg 05/13/20 21:00 05/14/20 10:45 Amoxicillin/Potassium Clav 600 Mg/5 Ml Oral Suspension PO 600 mg BID IVELISSE Administration Lipase/Protease/Amylase 1 cap 05/14/20 12:30 05/14/20 14:13 Pancrelipase 12,000 1 Cap FS 1 cap .PER PROTOCOL PRN Administration TUBE OCCLUSION PROTOCOL Aspirin 81 mg 05/08/20 09:00 05/14/20 10:44 Aspirin 81 Mg Enteric Coated Tablet PO 81 mg DAILY IVELISSE Administration Atorvastatin Calcium 10 mg 05/08/20 21:00 05/14/20 00:24 Atorvastatin Calcium 10 Mg Tab PO 10 mg HS IVELISSE Administration Docusate Sodium 100 mg 05/08/20 09:00 05/14/20 10:45 Docusate 100 Mg Cap PO 100 mg DAILY IVELISSE Administration Donepezil HCl 10 mg 05/08/20 09:00 05/14/20 10:45 Donepezil Hcl 10 Mg Tab PO 10 mg DAILY IVELISSE Administration Duloxetine HCl 60 mg 05/08/20 09:00 05/14/20 10:45 Duloxetine 60 Mg Cap PO 60 mg DAILY IVELISSE Administration Famotidine 20 mg 05/09/20 09:00 05/14/20 10:45 Famotidine 20 Mg Tab PO 20 mg DAILY IVELISSE Administration Sodium Chloride 1,000 mls @ 70 mls/hr 05/08/20 01:30 05/14/20 14:13 Normal Saline 0.9% IV Not Given .[id number] IVELISSE Piperacillin Sod/Tazobactam 100 mls @ 200 mls/hr 05/10/20 14:00 05/14/20 14:12 Sod 4.5 gm/ Sodium Chloride IVPB Not Given Q8HR IVELISSE Levetiracetam 1,000 mg 05/12/20 21:00 05/14/20 10:44 Levetiracetam 500 Mg/5 Ml Oral Solution PO 1,000 mg BID IVELISSE Administration Midodrine 5 mg 05/08/20 09:00 05/14/20 16:27 Midodrine Hcl 5 Mg Tab PO 5 mg TID IVELISSE Administration Multivitamins 1 tab 05/08/20 09:00 05/14/20 10:49 Multivit, Therapeutic 1 Tab PO 1 tab DAILY IVELISSE Administration Saccharomyces Boulardii 250 mg 05/11/20 09:00 05/14/20 10:44 Saccharomyces Boulardii 250 Mg Cap PO 250 mg DAILY IVELISSE Administration Sodium Bicarbonate 650 mg 05/14/20 12:30 05/14/20 14:13 Sodium Bicarbonate Tab 325 Mg Tab PER TUBE 650 mg .PER PROTOCOL PRN Administration ENTERAL TUBE OCCLUSION Sodium Chloride 10 ml 05/08/20 09:00 05/14/20 10:49 Flush - Normal Saline 10 Ml Syringe IVF 10 ml Q12HR IVELISSE Administration - Exam Heart: negative: RRR, no murmur, no gallops, no rubs, normal peripheral pulses, irregular, diminshed peripheral pulses, murmur present, II/IV, III/IV Respiratory: negative: CTAB, no wheezes, no rales, no ronchi, normal chest expansion, no tachypnea, normal percussion, rales, rhonchi, tachypneic, wheezes Gastrointestinal: negative: soft, non-tender, non-distended, normal bowel sounds, no palpable masses, no hepatomegaly, no splenomegaly, no bruit, no guarding, no rigidity, tender to palpation, distended, diminished bowl sounds, voluntary guarding Hosp A/P - Plan (1) SIRS (systemic inflammatory response syndrome) Code(s): R65.10 - SIRS OF NON-INFECTIOUS ORIGIN W/O ACUTE ORGAN DYSFUNCTION Status: Acute (2) Seizures Code(s): R56.9 - UNSPECIFIED CONVULSIONS Status: Acute (3) RADHA (acute kidney injury) Code(s): N17.9 - ACUTE KIDNEY FAILURE, UNSPECIFIED Status: Acute (4) Breakthrough seizure Code(s): G40.919 - EPILEPSY, UNSP, INTRACTABLE, WITHOUT STATUS EPILEPTICUS Status: Acute (5) Dehydration, moderate Code(s): E86.0 - DEHYDRATION Status: Acute (6) UTI (urinary tract infection) Status: Acute Qualifiers: Urinary tract infection type: acute cystitis Hematuria presence: without hematuria Qualified Code(s): N30.00 - Acute cystitis without hematuria (7) Afib Code(s): I48.91 - UNSPECIFIED ATRIAL FIBRILLATION Status: Chronic Qualifiers: Atrial fibrillation type: paroxysmal Qualified Code(s): I48.0 - Paroxysmal atrial fibrillation (8) CAD (coronary artery disease) Code(s): I25.10 - ATHSCL HEART DISEASE OF [place] CORONARY ARTERY W/O ANG PCTRS Status: Chronic Qualifiers: Associated angina: without angina (9) Dementia Code(s): F03.90 - UNSPECIFIED DEMENTIA WITHOUT BEHAVIORAL DISTURBANCE Status: Chronic Qualifiers: Dementia type: unspecified type Dementia behavioral disturbance: without behavioral disturbance Qualified Code(s): F03.90 - Unspecified dementia without behavioral disturbance (10) Dyslipidemia Code(s): E78.5 - HYPERLIPIDEMIA, UNSPECIFIED Status: Chronic (11) H/O: CVA (cerebrovascular accident) Code(s): Z86.73 - PRSNL HX OF TIA (TIA), AND CEREB INFRC W/O RESID DEFICITS Status: Chronic (12) PVD (peripheral vascular disease) Code(s): I73.9 - PERIPHERAL VASCULAR DISEASE, UNSPECIFIED Status: Chronic - Plan is on keppra, likely had breakthrough seizures, eeg x2 did not show epileptiform focus, is following her. prior h/o cva might be the focus for seizures? gentle iv hydration, cefepime, asp, lipitor, midodrine, cymbalta and aricept type 2 DC sec to seizure activity low alb of 2.5 blood and urine cultures were -ve, switch to oral antibiotics when she can tolerate po. prognosis guarded, I have given updates to son Mr.Sanders Esquivel over phone 05/08, 05/2020 patient continues to have an elevated WBCs we will change antibiotics to Zosyn. Patient is getting an EEG again. She continues to be on Keppra IV. Not much change in her mentation. She does withdraw to painful stimulation. 05/11 spoke with pt's son and updated him. I also spoke with neurology who stated that pt had a seizure while she was in the room evaluating the pt. Her keppra dose was increase and pt was given ativan. pt also has a stroke in her left occi pital area. she is on asa/statin. will order echo and carotid Doppler. 05/12 spoke with family yesterday explain patient's overall poor outcome. Recommended hospice. Patient unable to tolerate feedings. 05/13 spoke with family again today about patient's overall poor outcome and recommended hospice. We will get palliative care. Patient not tolerating feedings due to high residuals 05/[address] does not show anything acute. Patient continues to be obtunded. Overall prognosis poor. Will change IV antibiotics to p.o. Patient's family wants to send the patient back to the retirement with palliative care no hospice.
[2020-05-15 07:53] VITALS: TEMP 97.5
--- NOTE | 2020-05-15 08:24 | PDOC.PALCO ---
Palliative Care Consult - Allergies Allergies/Adverse Reactions: Allergies Allergy/AdvReac Type Severity Reaction Status Date / Time morphine AdvReac Nausea Verified 04/26/20 06:06 - Objective Vital Signs: Vital Signs - Most Recent Temp Pulse Resp BP Pulse Ox 97.5 F L 98 24 H 145/90 H 98 05/15/20 07:38 05/15/20 07:38 05/15/20 07:38 05/15/20 07:38 05/15/20 07:38 - Plan/Recommendations Plan: Palliative care has communicated with patient daughter Angelita. Understanding of disease processes and trajectory. Hopeful for transition back to [facility], Angelita is speaking with [facility] will initially transition back under palliative minded care and will discuss with [facility] Hospice companies that see patients in that facility. Her desire to to keep her mother comfortable with comfort measures and not seek aggressive treatments, avoiding re hospitalizations. Case management facilitating discharge under guidance of hospitalist. [40] minutes spent on this encounter with >50% of the time in counseling and c oordination of care. Thank you for this very appropriate consult.
[2020-05-15] MEDS: Piperacillin/Tazobactam 4.5 GM in Sodium Chloride 0.9% 100 ML IVPB SCH ×2 (08:41→14:51)
[2020-05-15] MEDS: Sodium Chloride 0.9% 1,000 ML IV SCH (08:41)
[2020-05-15] MEDS: Famotidine 20 MG TAB PO SCH (10:18)
[2020-05-15] MEDS: Multivit, Therapeutic 1 TAB PO SCH ×2 (10:18→10:39)
[2020-05-15] MEDS: Docusate 100 MG CAP PO SCH ×2 (10:18→10:38)
[2020-05-15] MEDS: Amoxicillin/Potassium Clav 600 mg/5 ml Oral Suspension PO SCH (10:18)
[2020-05-15] MEDS: Aspirin 81 mg Enteric Coated Tablet PO SCH (10:18)
[2020-05-15] MEDS: Saccharomyces boulardii 250 MG CAP PO SCH ×2 (10:19→10:39)
[2020-05-15] MEDS: levETIRAcetam 500 mg/5 ml Oral Solution PO SCH (10:19)
[2020-05-15] MEDS: DULoxetine 60 MG CAP PO SCH ×2 (10:19→10:38)
[2020-05-15] MEDS: Midodrine HCl 5 MG TAB PO SCH ×3 (10:19→16:05)
[2020-05-15] MEDS: Donepezil HCl 10 MG TAB PO SCH (10:37)
[2020-05-15 11:29] VITALS: BP 117/64
--- NOTE | 2020-05-15 11:52 | PDOC.EEG ---
Neurology EEG Report - Report Report: This EEG was performed using 24 channel [employer] video EEG machine with 24 disc michelle ctrodes. This was an extended 2 hours 4 minutes of inpatient video EEG recording. Digital analysis of the EEG was done for spike and seizure detection which revealed no abnormalities. Background: The posterior background rhythm was not observed. Hyperventilation: Not performed. Photic Stimulation: No significant response. Sleep: No stage change is observed. Spells: None EEG Diagnosis: Generalized irregular theta activity at times sharply contoured seen throughout the recording. Absence of Posterior background rhythm. Clinical Interpretation: This EEG is consistent with moderate generalized nonspecific cerebral dysfunction.
--- NOTE | 2020-05-15 11:57 | PDOC.NEUPN ---
- Subjective Encounter Date: 05/15/20 Subjective: Mrs. Glasgow continues to be somnolent but opens eyes to painful stimuli. - Objective Vital Signs & Weight: Vital Signs (12 hours) Temp Pulse Resp BP Pulse Ox 05/15/20 11:22 97.5 F L 85 26 H 117/64 98 05/15/20 07:38 97.5 F L 98 24 H 145/90 H 98 05/15/20 04:18 96.8 F L 87 26 H 129/77 100 05/15/20 00:59 102 H 24 H 127/78 100 Weight Admit Weight 161 lb 4.8 oz Weight 197 lb 11.2 oz I&O: 05/14/20 05/15/20 05/16/20 06:59 06:59 06:59 Intake Total 644 1456 Output Total 400 575 Balance 244 881 Result Diagrams: 05/13/20 10:37 05/14/20 10:37 Additional Labs: Accuchecks 05/14/20 20:18 POC Glucose 98 Radiology Reviewed by me: Yes EKG Reviewed by me: Yes ROS - Review of Systems ROS unobtainable: due to mental status - Medication Medications: Active Medications Generic Name Dose Route Start Last Admin Trade Name Freq PRN Reason Stop Dose Admin Amoxicillin/Clavulanate Potassium 600 mg 05/13/20 21:00 05/15/20 10:18 Amoxicillin/Potassium Clav 600 Mg/5 Ml Oral Suspension PO 600 mg BID IVELISSE Administration Lipase/Protease/Amylase 1 cap 05/14/20 12:30 05/14/20 14:[address] 12,000 1 Cap FS 1 cap .PER PROTOCOL PRN Administration TUBE OCCLUSION PROTOCOL Aspirin 81 mg 05/08/20 09:00 05/15/20 10:18 Aspirin 81 Mg Enteric Coated Tablet PO 81 mg DAILY IVELISSE Administration Atorvastatin Calcium 10 mg 05/08/20 21:00 05/14/20 23:12 Atorvastatin Calcium 10 Mg Tab PO 10 mg HS IVELISSE Administration Docusate Sodium 100 mg 05/08/20 09:00 05/15/20 10:38 Docusate 100 Mg Cap PO Not Given DAILY IVELISSE Donepezil HCl 10 mg 05/08/20 09:00 05/15/20 10:37 Donepezil Hcl 10 Mg Tab PO Not Given DAILY IVELISSE Duloxetine HCl 60 mg 05/08/20 09:00 05/15/20 10:38 Duloxetine 60 Mg Cap PO Not Given DAILY IVELISSE Famotidine 20 mg 05/09/20 09:00 05/15/20 10:18 Famotidine 20 Mg Tab PO 20 mg DAILY IVELISSE Administration Sodium Chloride 1,000 mls @ 70 mls/hr 05/08/20 01:30 05/15/20 08:41 Normal Saline 0.9% IV Not Given .[id number] IVELISSE Piperacillin Sod/Tazobactam 100 mls @ 200 mls/hr 05/10/20 14:00 05/15/20 08:41 Sod 4.5 gm/ Sodium Chloride IVPB Not Given Q8HR VIELISSE Levetiracetam 1,000 mg 05/12/20 21:00 05/15/20 10:19 Levetiracetam 500 Mg/5 Ml Oral Solution PO 1,000 mg BID IVELISSE Administration Midodrine 5 mg 05/08/20 09:00 05/15/20 10:39 Midodrine Hcl 5 Mg Tab PO Not Given TID IVELISSE Multivitamins 1 tab 05/08/20 09:00 05/15/20 10:39 Multivit, Therapeutic 1 Tab PO Not Given DAILY IVELISSE Saccharomyces Boulardii 250 mg 05/11/20 09:00 05/15/20 10:39 Saccharomyces Boulardii 250 Mg Cap PO Not Given DAILY IVELISSE Sodium Bicarbonate 650 mg 05/14/20 12:30 05/14/20 14:13 Sodium Bicarbonate Tab 325 Mg Tab PER TUBE 650 mg .PER PROTOCOL PRN Administration ENTERAL TUBE OCCLUSION Sodium Chloride 10 ml 05/08/20 09:00 05/15/20 10:37 Flush - Normal Saline 10 Ml Syringe IVF Not Given Q12HR IVELISSE - Exam General Appearance: ill appearing Eye: PERRL ENT: normocephalic atraumatic Neck: supple Respiratory: rales Gastrointestinal: soft Extremities: no cyanosis Skin: normal turgor Neurological: no new deficit Musculoskeletal: no muscle wasting PSYCH: not oriented, somnolent, lethargic Results - Labs Result Diagrams: 05/13/20 10:37 05/14/20 10:37 Lab results: WBC 15.0 thou/uL (4.8-10.8) H 05/13/20 10:37 Hgb 14.5 g/dL (12.0-16.0) 05/13/20 10:37 Hct 47.9 % (36.0-47.0) H 05/13/20 10:37 MCV 93.7 fL (78.0-98.0) 05/13/20 10:37 Plt Count 132 thou/uL (130-400) 05/13/20 10:37 Neutrophils % 75.3 % (42.0-75.0) H 05/11/20 09:40 Band Neuts % (Manual) 1 % (5-11) L 05/13/20 10:37 Sodium 143 mmol/L (136-145) 05/14/20 10:37 Potassium 4.3 mmol/L (3.5-5.1) 05/14/20 10:37 Chloride 116 mmol/L (98-107) H 05/14/20 10:37 Carbon Dioxide 14 mmol/L (23-31) L 05/14/20 10:37 BUN 31 mg/dL (9.8-20.1) H 05/14/20 10:37 Creatinine 1.98 mg/dL (0.6-1.1) H 05/14/20 10:37 Glucose 129 mg/dL (83-110) H 05/14/20 10:37 Lactic Acid 1.4 mmol/L (0.5-2.2) 05/10/20 10:09 Calcium 8.8 mg/dL (7.8-10.44) 05/14/20 10:37 Total Bilirubin 0.8 mg/dL (0.2-1.2) 05/08/20 02:41 AST 55 U/L (5-34) H 05/08/20 02:41 ALT 16 U/L (8-55) 05/08/20 02:41 Alkaline Phosphatase 79 U/L (40-110) 05/08/20 02:41 CK-MB (CK-2) 4.3 ng/mL (0-6.6) 05/07/20 19:49 Troponin I 0.354 ng/mL (< 0.028) H* 05/10/20 10:09 B-Natriuretic Peptide 843.9 pg/mL (0-100) H 05/07/20 19:49 Serum Total Protein 6.0 g/dL (6.0-8.3) 05/08/20 02:41 Albumin 2.5 g/dL (3.4-4.8) L 05/08/20 02:41 Urine Ketones Negative mg/dL (Negative) 05/07/20 20:49 Urine Blood Trace (Negative) A 05/07/20 20:49 Urine Nitrite Negative (Negative) 05/07/20 20:49 Ur Leukocyte Esterase 75 Lucy/uL (Negative) A 05/07/20 20:49 Urine RBC 0-3 HPF (0-3) 05/07/20 20:49 Urine WBC 7-10 HPF (0-3) A 05/07/20 20:49 Ur Squamous Epith Cells 7-10 HPF (0-3) A 05/07/20 20:49 Urine Bacteria 3+ HPF (None Seen) A 05/07/20 20:49 - Radiology Interpretation CT scan - head Additional Comment: Head CT performed yesterday did not reveal acute intracranial pathology. PN A/P (1) CVA (cerebral vascular accident) Code(s): I63.9 - CEREBRAL INFARCTION, UNSPECIFIED Status: Acute (2) Seizures Code(s): R56.9 - UNSPECIFIED CONVULSIONS Status: Acute (3) SIRS (systemic inflammatory response syndrome) Code(s): R65.10 - SIRS OF NON-INFECTIOUS ORIGIN W/O ACUTE ORGAN DYSFUNCTION Status: Acute (4) RADHA (acute kidney injury) Code(s): N17.9 - ACUTE KIDNEY FAILURE, UNSPECIFIED Status: Acute (5) Breakthrough seizure Code(s): G40.919 - EPILEPSY, UNSP, INTRACTABLE, WITHOUT STATUS EPILEPTICUS Status: Acute (6) Dehydration, moderate Code(s): E86.0 - DEHYDRATION Status: Acute (7) UTI (urinary tract infection) Status: Acute Qualifiers: Urinary tract infection type: acute cystitis Hematuria presence: without hematuria Qualified Code(s): N30.00 - Acute cystitis without hematuria (8) Afib Code(s): I48.91 - UNSPECIFIED ATRIAL FIBRILLATION Status: Chronic Qualifiers: Atrial fibrillation type: paroxysmal Qualified Code(s): I48.0 - Paroxysmal atrial fibrillation (9) CAD (coronary artery disease) Code(s): I25.10 - ATHSCL HEART DISEASE OF [place] CORONARY ARTERY W/O ANG PCTRS Status: Chronic Qualifiers: Associated angina: without angina (10) Dementia Code(s): F03.90 - UNSPECIFIED DEMENTIA WITHOUT BEHAVIORAL DISTURBANCE Status: Chronic Qualifiers: Dementia type: unspecified type Dementia behavioral disturbance: without behavioral disturbance Qualified Code(s): F03.90 - Unspecified dementia without behavioral disturbance (11) Dyslipidemia Code(s): E78.5 - HYPERLIPIDEMIA, UNSPECIFIED Status: Chronic (12) H/O: CVA (cerebrovascular accident) Code(s): Z86.73 - PRSNL HX OF TIA (TIA), AND CEREB INFRC W/O RESID DEFICITS Status: Chronic (13) PVD (peripheral vascular disease) Code(s): I73.9 - PERIPHERAL VASCULAR DISEASE, UNSPECIFIED Status: Chronic - Plan Daily Plan: PT/OT, speech therapy Consults: Hospice, Palliative Care Mrs. Glasgow is an 84-year-old female with history significant for dementia, coronary artery disease, prior CVA and seizure disorder presented with multiple seizure episodes consistent with status epilepticus. The patient continues to remain somnolent but no evidence of ongoing status epilepticus on multiple EEG r ecordings. No acute events in the last 24 hours or seizures documented in the last 24 hours. HCT repeated yesterday which did not show any evidence of new stroke or bleed. Prior HCT was positive for subacute left occipital lobe infarct. EEG repeated today did not show any evidence of seizure activity. Continue Keppra 1 g IV every 12 hours for seizure prophylaxis. Observe seizure precautions. Ativan 2 mg IV for seizure greater than 2 minutes. . 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 CTA is recommended. Family is leaning towards hospice services so most likely will not pursue further testing. Continue telemetry-history of atrial fibrillation not on anticoagulation. Monitor control of blood pressure at this time Strict control of blood glucose Check hemoglobin A1c fasting lipid panel and TSH. Continue aspirin and high intensity statin for secondary stroke prevention. Neurochecks every 4 hours. Continue monitor respiratory status Continue home medications. N.p.o. till cleared by speech. PT/OT Case management regarding discharge planning. Palliative care team on board and communicating with family. Possible discharge today to hospice care nursing staff. Continue medical management per primary team.
== END 2020-05-15 15:54 | DRG 100 ==
LOC: ERS 19:05 → ERHOLD 21:56 → 2NO 05-08 10:18 → 2SE 05-08 15:29 → PACU-TCU 05-13 19:14
PROVIDERS: ADMIT Internal Medicine; ATTEND Internal Medicine
DX: G40.911 Epilepsy, unspecified, intractable, with status epilepticus (principal); I21.A1 Myocardial infarction type 2; I63.89 Other cerebral infarction; N30.00 Acute cystitis without hematuria; N17.9 Acute kidney failure, unspecified; R65.10 Systemic inflammatory response syndrome (SIRS) of non-infectious origin without acute organ dysfunction; Z20.822 Contact with and (suspected) exposure to COVID-19; Z66 Do not resuscitate; Z51.5 Encounter for palliative care; I50.9 Heart failure, unspecified; K21.9 Gastro-esophageal reflux disease without esophagitis; E78.5 Hyperlipidemia, unspecified; M19.90 Unspecified osteoarthritis, unspecified site; I73.9 Peripheral vascular disease, unspecified; I48.0 Paroxysmal atrial fibrillation; I25.10 Atherosclerotic heart disease of native coronary artery without angina pectoris; I11.0 Hypertensive heart disease with heart failure; E86.0 Dehydration; G93.89 Other specified disorders of brain; G30.9 Alzheimer's disease, unspecified; F02.80 Dementia in other diseases classified elsewhere, unspecified severity, without behavioral disturbance, psychotic disturbance, mood disturbance, and anxiety; R13.10 Dysphagia, unspecified; I69.991 Dysphagia following unspecified cerebrovascular disease; Z79.01 Long term (current) use of anticoagulants; Z79.82 Long term (current) use of aspirin; Z79.899 Other long term (current) drug therapy; Z86.718 Personal history of other venous thrombosis and embolism; Z88.5 Allergy status to narcotic agent
CPT/HCPCS: 0240U; 36415; 36416; 51701; 70450; 71045; 74018; 80048; 80053; 80202; 81003; 81015; 82553; 83605; 83735; 83880; 84484; 85007; 85025; 85027; 87040; 87086; 93005; 93880; 95712; 95816; 95819; 95957; 96365; 96366; 96367; 96375; 99292; J0282; J0692; J1953; J2060; J2175; J2543; J3010; J3370; J3475; J3490; Q2009